=== PATIENT | female | born 1950 | race Caucasian/White ===

== ENCOUNTER 2017-01-26 11:12 | Inpatient (IN) | payer MEDICARE, MEDICAID ==
[~2017-01-26] VITALS: Ht 165.1 cm; Wt 86.2 kg
[~2017-01-26 11:12] MED LIST: ACET-62 PO; ASPI81TA2 PO; CALC-52 PO; CEPH-583 PO; CHOL500050 PO; DEXT1DRO BOTH EYES; DIGO250T85 PO; DIVA250T4 PO; DIVA500T2 PO; ENOX40DI8 SQ; GLUC-120 PO; HYDR-347 PO; LEVE500T9 PO; MAG30ORA2 PO; MAGN400C PO; MAGN400O4 PO; MECO0.5P SL; METO25TA3 PO; OMEP20TA2 PO; PHEN100C4 PO; PHEN32.43; PHEN32.43 PO; POLY17PO6 PO; SENN-9 PO; TRAZ-170 PO; TRIA15CR3 TOP; TROL35.4; VIT1CAPS47 PO; VITA1CAP PO
[2017-01-26] MEDS ORDERED: BISACODYL 10 MG SUPPOSITORY RECTALLY PRN (11:15)
[2017-01-26] MEDS ORDERED: ACETAMINOPHEN 325 MG SUPPOSITORY RECTALLY PRN (11:15)
[2017-01-26] MEDS ORDERED: PRN ORDERS MC (11:15)
[2017-01-26] MEDS ORDERED: ACETAMINOPHEN 325 MG TABLET PO PRN (11:15)
[2017-01-26] MEDS ORDERED: MILK OF MAGNESIA 30 ML SUSP PO PRN ×2 (11:15→14:00)
[2017-01-26] MEDS ORDERED: NITROGLYCERIN 0.4 MG SUBLINGUAL TABLET SL PRN (11:15)
[2017-01-26] MEDS ORDERED: MAG-AL + SIM LIQUID 30 ML UDC PO PRN (11:15)
[2017-01-26] MEDS ORDERED: ONDANSETRON 4mg/2ml INJECTION IV PRN (11:15)
--- NOTE | 2017-01-26 12:30 | NUR ---
ARRIVAL ARRIVES TO ROOM 131 VIA STRETCHER WITH [facility]. PATIENT TRANSFERRED FROM STRETCHER TO BED VIA SLIDE BOARD AND ASSIST X3 FROM STAFF. O2 RA. PATIENT ALERT AND ORIENTED X3. BED IN LOWEST POSITION, CALL LIGHT WITHIN REACH, BED ALARM ACTIVATED, SIDE RAILS UP X2. FAMILY AT BEDS SIDE.
--- OUTSIDE RECORDS SUMMARY | 2017-01-26 12:44 | XMS REPORT ---
Author Author [facility]. Organization [facility] Address [address] [place] [address] Phone [phone] Summary purpose CCDA Sent to [facility] Chief Complaint and Reason for Visit No authorized Reason for Visit (Admitting Diagnosis) is available for this visit. Problem list No authorized problems tracked for continuity of care are available for this visit. Encounters No authorized problems tracked for encounter diagnoses are available for this visit. Medications No medications recorded for this patient visit Allergies, adverse reactions, alerts Allergen Category Ingredient Status Reaction Severity Onset Bactrim Drug Bactrim Active Bactrim Drug sulfamethoxazole Active Bactrim Drug trimethoprim Active Amoxicillin Drug Amoxicillin Active ciprofloxacin Drug ciprofloxacin Active Immunizations No immunizations recorded for this patient visit Relevant diagnostic tests and/or laboratory data RESULTS CBC [id number]:53:00 Result Normal Range Units WBC 8.07 4.8-10.8 x103/mm3 Neutrophil % H 71.0 50-70 % Lymph % L 15.7 20-50 % [place] % H 12.4 1.0-9.0 % Eosinophil % 0.7 0-4 % Basophil % 0.2 0-2 % Neutrophil # 5.72 3.0-7.0 x103/mm3 Lymph # 1.27 1.0-4.0 x103/mm3 [place] # H 1.00 0.0-0.8 x103/mm3 Eosinophil # 0.06 0-0.5 x103/mm3 Basophil # 0.02 0-0.2 x103/mm3 RBC L 3.73 4.20-5.40 x103/mm3 HGB 12.1 12.0-16.0 g/dl HCT L 35.7 37.0-47.0 % MCV 95.7 81-99 FL MCH H 32.4 27.0-31.0 pg MCHC 33.9 32.0-36.0 g/dl RDW 13.0 12-15 % Platelet 284 150-400 x103/mm3 MPV H 10.3 6.0-10.0 FL Chemistry Group [id number]:00 Result Normal Range Units Sodium 136 134-145 mmol/L Potassium 3.8 3.6-5.0 mmol/L Chloride L 95 98-107 mmol/L CO2 H 31 22-30 mmol/L Glucose 104 75-110 mg/dl BUN L 6 9-20 mg/dl Creatinine L .38 0.8-1.7 mg/dl eGFR 168 ml/min. Total Protein L 6.1 6.3-8.2 g/dl Albumin L 2.7 3.5-5.0 g/dl Calcium 8.5 8.4-10.2 mg/dl Alk Phos 114 38-126 U/L AST 16 14-36 U/L ALT 24 11-66 U/L T Bili .5 0.2-1.3 mg/dl A/G Ratio .8 Ratio Reference Lab Group [id number]:00 Result Normal Range Units Valproic Acid 60 50-100 ug/mL Valproic Acid performed at [facility] Reference Lab, [address] [place] [address] Manager [employer] Care Alissa Falk DO History of procedures Procedure Code Code Type Description Date Performed Performing Physician 38678 CPT-4 COMPLETE CBC, AUTOMATED 12-02-2016 JOSE EDUARDO MOELLER 27187 CPT-4 COMPREHEN METABOLIC PANEL 12-02-2016 JOSE EDUARDO MOELLER 17039 CPT-4 ASSAY, DIPROPYLACETIC ACID 12-02-2016 JOSE EDUARDO MOELLER Functional status No functional or cognitive status observations are available for this visit. Vital signs No authorized vital signs are available for this visit. Social history No Social History or smoking status observations were recorded for this visit. ( Unknown if ever smoked.) Treatment Plan No treatment plan text is available for this visit. Hospital discharge instructions No discharge instruction text is available for this visit.
--- OUTSIDE RECORDS SUMMARY | 2017-01-26 12:44 | XMS REPORT ---
Author Author [facility]. Organization [facility] Address [address] [place] [address] Phone [phone] Summary purpose CCDA Sent to [facility] Chief Complaint and Reason for Visit No [...] diagnostic tests and/or laboratory data RESULTS CBC [id number]:15:00 Result Normal Range Units WBC L 2.65 4.8-10.8 x103/mm3 Neutrophil % L 43.1 50-70 % Lymph % 41.5 20-50 % [place] % H 12.8 1.0-9.0 % Eosinophil % 1.5 0-4 % Basophil % 1.1 0-2 % Neutrophil # L 1.14 3.0-7.0 x103/mm3 Lymph # 1.10 1.0-4.0 x103/mm3 [place] # 0.34 0.0-0.8 x103/mm3 Eosinophil # 0.04 0-0.5 x103/mm3 Basophil # 0.03 0-0.2 x103/mm3 RBC L 3.54 4.20-5.40 x103/mm3 HGB L 11.5 12.0-16.0 g/dl HCT 37.0 37.0-47.0 % MCV H 104.5 81-99 FL MCH H 32.5 27.0-31.0 pg MCHC L 31.1 32.0-36.0 g/dl RDW H 17.2 12-15 % Platelet 347 150-400 x103/mm3 MPV 9.4 6.0-10.0 FL Chemistry Group [id number]:00 Result Normal Range Units Sodium 140 134-145 mmol/L Potassium 4.4 3.6-5.0 mmol/L Chloride 99 98-107 mmol/L CO2 H 35 22-30 mmol/L Glucose 91 75-110 mg/dl BUN L 5 9-20 mg/dl Creatinine L .55 0.8-1.7 mg/dl eGFR 110 ml/min. Calcium 8.9 8.4-10.2 mg/dl Digoxin .9 0.8-2.0 ng/ml History of procedures No procedures recorded for this patient visit. Functional status No functional or cognitive status [...]
--- OUTSIDE RECORDS SUMMARY | 2017-01-26 12:45 | XMS REPORT ---
Author Author [facility]. Organization [facility] Address [address] [place] [address] Phone [phone] Summary purpose CCDA Sent to [facility] Chief Complaint and Reason for Visit No [...] diagnostic tests and/or laboratory data RESULTS CBC [id number]:00 Result Normal Range Units WBC L 4.18 4.8-10.8 x103/mm3 Neutrophil % 51.9 50-70 % Lymph % 31.8 20-50 % [place] % H 12.7 1.0-9.0 % Eosinophil % 2.6 0-4 % Basophil % 1.0 0-2 % Neutrophil # L 2.17 3.0-7.0 x103/mm3 Lymph # 1.33 1.0-4.0 x103/mm3 [place] # 0.53 0.0-0.8 x103/mm3 Eosinophil # 0.11 0-0.5 x103/mm3 Basophil # 0.04 0-0.2 x103/mm3 RBC L 2.75 4.20-5.40 x103/mm3 HGB L 8.6 12.0-16.0 g/dl HCT L 26.7 37.0-47.0 % MCV 97.1 81-99 FL MCH H 31.3 27.0-31.0 pg MCHC 32.2 32.0-36.0 g/dl RDW H 15.7 12-15 % Platelet H 459 150-400 x103/mm3 MPV 9.1 6.0-10.0 FL Chemistry Group :06:00 Result Normal Range Units Sodium 138 134-145 mmol/L Potassium 4.2 3.6-5.0 mmol/L Chloride 102 98-107 mmol/L CO2 H 34 22-30 mmol/L Glucose 90 75-110 mg/dl BUN L 8 9-20 mg/dl Creatinine L .46 0.8-1.7 mg/dl eGFR 135 ml/min. Total Protein L 5.7 6.3-8.2 g/dl Albumin L 2.7 3.5-5.0 g/dl Calcium 8.4 8.4-10.2 mg/dl Alk Phos 72 38-126 U/L AST 24 14-36 U/L ALT 32 11-66 U/L T Bili .6 0.2-1.3 mg/dl A/G Ratio .9 Ratio Digoxin L .7 0.8-2.0 ng/ml Special Chemistry Group :06:00 Result Normal Range Units TSH 2.76 0.50-6.00 uIU/mL Reference Lab Group :06:00 Result Normal Range Units Valproic Acid L 35 50-100 ug/mL Valproic Acid performed at [facility] Reference Lab, [address] [place] [address] Physical Sciences Instructor Alissa Falk DO Phenytoin(Dilantin) L 2 10-20 ug/mL Phenytoin performed at [facility] Reference Lab, [address] [place] [address] Physical Sciences Instructor Alissa Falk DO Phenobarbital 29 15-40 ug/mL Phenobarbital performed at [facility] Reference Lab, [address] [place] [address] Physical Sciences Instructor Alissa Falk DO History of procedures No procedures recorded for [...]
--- OUTSIDE RECORDS SUMMARY | 2017-01-26 12:45 | XMS REPORT | Continuity of Care Document ---
Author Author [facility] Organization [facility] Address Unknown Phone Unavailable Support Name Relationship Address Phone LOLA KO MD Caregiver [address] [place] [address] Unavailable JOSE EDUARDO MOELLER MD Caregiver [address] [place] [address] Unavailable NICANOR WEBBER MD Caregiver [address] [place] [address] [place] [address] Unavailable PEREZ AVITIA Next Of Kin [address] [place] [address] Insurance Providers Guarantor Eliza Avitia Address [address] [place] [address] Email DENIED/NO TO PT [facility] Policy Number [id number] Subscriber's Name AdoreEliza Rodriguez Relationship 18 Self Effective Date 16 Expiration Date 16 Payer Medicare Policy Number [id number] Subscriber's Name Eliza Avitia Relationship 18 Self Effective Date 13 Advance Directives Directive Response Recorded Date/Time Dr Ordered Resuscitation Status Do Not Resuscitate 10/14/16 11:11am Resuscitation Documents on File Yes 10/13/16 10:11pm DPOA for Healthcare Only Yes 10/14/16 8:21am Living Will Yes 10/13/16 10:11pm Problems Active Problems Medical Problem Onset Date Status Atrial fibrillation with rapid ventricular response Unknown Chronic Chronic pain Unknown DJD (degenerative joint disease) Unknown Chronic Epilepsy Unknown Chronic GERD (gastroesophageal reflux disease) Unknown Chronic Intertrochanteric fracture of right hip Unknown Acute Macular degeneration Unknown UTI (urinary tract infection) Unknown Chronic Vitamin D deficiency Unknown Chronic Medications Current Home Medications Medication Dose Units Route Directions Days Qty Instructions Start Date Acetaminophen 500 Mg Tablet 1-2 Tab Oral Every 4 Hours Prn as needed for Prn Orders 60 Tablet 10/14/16 Aspirin 81 Mg Tab.chew 1 Tab Oral Daily 30 Tablet 10/14/16 Calcium Carbonate (Calcium) 500 Mg Tablet 500 Mg Oral Twice A Day 30 Days 60 Tablet 10/17/16 Cephalexin (Keflex) 500 Mg Capsule 1 Cap Oral Three Times A Day 5 Days 15 Capsule 10/17/16 Cholecalciferol (Vitamin D3) (Vitamin D3) 50,000 Unit Capsule 1 Tab-Cap Oral 1 Week 12 10/17/16 Dextran 70/Hypromellose/Pf (Tears Naturale Free Drops) 1 Each Droperette 1-2 Drop Both Eyes Three Times A Day 10/14/16 Digoxin 250 Mcg Tablet 1 Tab Oral Daily 10/14/16 Divalproex Sodium (Depakote) 250 Mg Tablet. 1 Tab Oral Every Evening 10/14/16 Divalproex Sodium (Depakote) 500 Mg Tablet. 1 Tab Oral Morning And Bedtime 10/14/16 Enoxaparin Sodium 40 Mg/0.4 Ml Syringe 40 Mg Sub-Q Daily 30 Days 30 10/17/16 Gluc Gordon Dipo Ch/Billy Gordon/C/Aj (Glucosamine Chondroitin Caplet) 1 Each Tablet 1 Cap Oral Twice A Day 10/14/16 Hydrocodone/Acetaminophen ([place] 7.5-325 Tablet) 7.5-325 Tablet 1 Tab Oral Bedtime 10/14/16 Hydrocodone/Acetaminophen ([place] 7.5-325 Tablet) 7.5-325 Tablet 1-2 Tab Oral Three Times A Day as needed for Prn Orders 10/14/16 Levetiracetam (Keppra) 500 Mg Tablet 1 Tab Oral Every 12 Hours 180 Tablet 10/14/16 Mag Hydrox/Al Hydrox/Simeth (Mag-Al Plus Xs Suspension) 30 Ml Suspension 15 Ml Oral Every 2-4 Hours as needed for Prn Orders 10/14/16 Magnesium Hydroxide (Milk Of Magnesia) 400 Mg/5 Ml Oral.susp 30 Ml Oral Daily as needed for Prn Orders 10/14/16 Magnesium Oxide (Magnesium) 400 Mg Capsule 325 Mg Oral Bedtime 180 Capsule 10/14/16 Mecobalamin (Methylcobalamin) 0.5 Gm Powder 5,000 Tab Sublingual Give With Breakfast 10/14/16 Metoprolol Succinate (Toprol Xl) 25 Mg Tab.er.24h 25 Mg Oral Daily 30 Days 30 Tablet 10/17/16 Omeprazole Magnesium (Prilosec Otc) 20 Mg Tablet.dr Jerez Tab Oral Daily 10/14/16 Phenobarbital 32.4 Mg Tablet 1 Tab Daily 10/14/16 Phenobarbital 32.4 Mg Tablet 2 Tab Oral Bedtime 10/14/16 Phenytoin Sodium Extended (Dilantin) 100 Mg Capsule 2 Cap Oral Every Evening Take 2 (100 mg) capsules, by mouth, daily with breakfast. Polyethylene Glycol 3350 (Miralax) 17 Gm Powd.pack 1 Packet Oral Daily as needed for Prn Orders 30 Packet 10/14/16 Sennosides/Docusate Sodium (Senokot-S Tablet) 1 Each Tablet 1 Tab Oral Twice A Day 30 Tablet 10/14/16 Trazodone Hcl 50 Mg Tablet 50 Mg Oral Bedtime Take 1 tablet, by mouth, one time a day (at BEDTIME). 10/14/16 Triamcinolone (Triamcinolone Acetonide) 15 Applic/15 G Cr 1 Applic Topically Daily as needed for Prn Orders 30 Gram 10/14/16 Trolamine Salicylate/Aloe Vera (Aspercreme 10% Cream) 35.4 Gm Cream..g. Twice A Day 10/14/16 Vit C/E/Zn/Coppr/Lutein/Zeaxan (Preservision Areds 2 Softgel) 1 Each Capsule 1 Cap Oral Twice A Day 10/14/16 Vitamin B Complex 1 Each Capsule 50 Mg Oral Give With Breakfast 10/14/16 Past Home Medications Medication Directions Ordered Status Calcium Carbonate (Tums) 300 Mg Tab.chew, 500 Mg Po Chew Give At Noon Discontinued Mag Hydrox/Al Hydrox/Simeth (Mag-Al Plus Xs Suspension) 30 Ml Suspension, 15 Ml Oral Every 2-4 Hours as needed for Prn Orders 10/14/16 Discontinued Mag Hydrox/Al Hydrox/Simeth (Mag-Al Plus Suspension) 30 Ml Oral.susp, 15 Ml Oral Every 2-4 Hours as needed for Prn Orders 10/14/16 Discontinued Meloxicam 15 Mg Tablet, 15 Mg Oral Daily 10/14/16 Discontinued Metoprolol Succinate 25 Mg Tab.er.24h, 12.5 Mg Oral Daily 10/14/16 Discontinued Nitrofurantoin Monohyd/M-Cryst (Macrobid 100 Mg Capsule) 100 Mg Capsule, 1 Cap Oral Twice Daily With Meals 10/14/16 Discontinued [place]-3/Dha/Epa/Fish Oil (Fish Oil 1,000 Mg Softgel) 1 Each Capsule, 1000 Mg Oral Daily 10/14/16 Discontinued Social History Social History Problem Response Recorded Date/Time Onset Date Status Reason for Hospitalization right hip fracture 10/17/2016 4:23pm Not Applicable Not Applicable Has the pt used tobacco in the last 12 months No 10/13/2016 10:13pm Not Applicable Not Applicable Query Response Start Date Stop Date Smoking Status Never smoker Hospital Discharge Instructions Instructions: Care Instructions: Reason for Hospitalization: right hip fracture I was in the hospital because (patient own words): "I broke my pelvis" Discharge Diet: Resume previous Discharge Activity: As tolerated. Left hip precautions. Up with assist. Follow Up Appointments: Elie HERNANDEZ in [facility] on 11/03/16 @ 1:30 Pending Lab / Results: Follow up w/ your PCP Wound/Incision Care: You may remove the dressings after 10/28/15. Do not apply cremes or ointments to the wound. Keep the wounds dry until 10/28/16. Pain Scale Utilized to Educate Patient: 0-10 Pain Scale Pain Management/Treatment: See MAR. Expected Signs/Symptoms: Pain at fracture site. Mild swelling at incision site, should improve. Notify Physician If: Fever over 100.0 Increasing redness, warmth, or drainage at fracture site. Persistent diarrhea. During Business Hours:: Please call the attending physician. After Business Hours:: Please call [phone] and have the checkering machine operator page the physician or call credit administration officer physician at facility. Condition at time of discharge: Good Plan of Care Discharge Date 10/17/16 5:40pm Disposition 04 TO [facility] HOME[facility]FACILITY Instructions/Education Provided [facility] Postop Instructions [facility] Fracture Instruction Prescriptions See Medication Section Care Plan and Goals See Discharge Instructions Section Functional Status Query Response Date Recorded Mobility Status Transfer w/assist October 17, 2016 4:23pm Assistive Devices Wheelchair October 17, 2016 4:23pm Activity Limitations Weakness October 17, 2016 4:23pm Feeding Ability Independent October 17, 2016 4:23pm Toileting Ability Assist October 13, 2016 10:16pm Grooming Ability Assist October 17, 2016 4:23pm Dressing Ability Assist October 17, 2016 4:23pm Driving Ability Dependent October 17, 2016 4:23pm Housework Ability Dependent October 17, 2016 4:23pm Meal Preparation Ability Dependent October 17, 2016 4:23pm Stair Climbing Ability Dependent October 17, 2016 4:23pm Ability to complete ADL's impeded by Impaired Mobility October 17, 2016 4:23pm Cognitive/Perceptual Impairments None October 17, 2016 4:23pm Visual Assistive Devices Glasses October 16, 2016 10:14pm Allergies, Adverse Reactions, Alerts Allergen Type Severity Reaction Status Last Updated Sulfamethoxazole Allergy Unknown Active 10/13/16 Trimethoprim Allergy Unknown Active 10/13/16 Ciprofloxacin Allergy Unknown Active 10/13/16 Amoxicillin Allergy Unknown Active 10/13/16 Immunizations Query Response on File Recorded Date/Time Hx Influenza Vaccination Yes 10/13/16 10:13pm Hx Pneumococcal Vaccination Yes 10/13/16 10:13pm Hx Influenza Vaccination Yes 10/13/16 10:13pm Influenza Vaccine Hx JULY 2016 10/14/16 2:52pm Vital Signs Acute Vital Signs Vital Response Date/Time Temperature (Fahrenheit) 97.9 deg F (96.8 - 99.1) 10/17/2016 4:19pm Temperature (Calculated Celsius) 36.47479 degrees C (36.0 - 37.3) 10/17/2016 4:19pm Temperature Source Oral 10/17/2016 4:19pm Pulse Rate (adult) 99 bpm (60 - 100) 10/17/2016 4:19pm Respiratory Rate 16 breaths/min (10 - 20) 10/17/2016 4:19pm O2 Sat by Pulse Oximetry 97 % (90 - 100) 10/17/2016 4:19pm Oxygen Delivery Method Room Air 10/17/2016 4:19pm Oxygen Delivery Method Nasal Cannula 10/14/2016 1:55pm Oxygen Flow Rate 1.00 L/min 10/14/2016 8:13pm Blood Pressure 146/90 mm Hg 10/17/2016 4:19pm Blood Pressure Source Automatic Cuff 10/17/2016 4:19pm Height (Feet) 5 feet 10/17/2016 12:50pm Height (Inches) 6.00 inches 10/17/2016 12:50pm Weight (Kilograms) 87.400 kg 10/17/2016 7:51am Body Mass Index (BMI) 29.6 10/13/2016 10:09pm Results Laboratory Results Test Name Result Units Flags Reference Collection Date/Time Result Date/ Time Comments White Blood Count 4.6 T/MM3 4.5-11.0 10/17/2016 5:5210/17/2016 6: 17am Red Blood Count 2.67 M/MM3 L 4.00-5.20 10/17/2016 5:5210/17/2016 6: 17am Hemoglobin 8.1 GM/DL L 12-16 10/17/2016 5:5210/17/2016 6:17am Hematocrit 24.8 % L 36-46 10/17/2016 5:5210/17/2016 6:17am Mean Corpuscular Volume 92.9 UM3 80-100 10/17/2016 5:5210/17/2016 6: 17am Mean Corpuscular Hemoglobin 30.3 UUG 26-34 10/17/2016 5:522016 6:17am Mean Corpuscular Hemoglobin Concent 32.7 GM/DL 31-37 10/17/2016 5:5210/17/2016 6:17am RDW Standard Deviation 42.5 FL 36.9-50.2 10/17/2016 5:5210/17/2016 6 :17am Platelet Count 155 T/MM3 130-400 10/17/2016 5:5210/17/2016 6:17am Mean Platelet Volume 10.4 UM3 9.4-12.4 10/17/2016 5:5210/17/2016 6: 17am Neutrophils (%) (Auto) 47.3 % 33-66 10/17/2016 5:5210/17/2016 6: 17am Lymphocytes (%) (Auto) 38.7 % 23-45 10/17/2016 5:5210/17/2016 6: 17am Monocytes (%) (Auto) 11.2 % H 0-9.0 10/17/2016 5:5210/17/2016 6:17am Eosinophils (%) (Auto) 2.2 % 0-4 10/17/2016 5:5210/17/2016 6:17am Basophils (%) (Auto) 0.4 % 0-2 10/17/2016 5:5210/17/2016 6:17am Immature Granulocyte % (Auto) 0.2 % 0.0-0.5 10/17/2016 5:52am 2016 6:17am Absolute Neutrophils (auto) 2.2 T/MM3 1.8-7.7 10/17/2016 5:52am 2016 6:17am Absolute Lymphocytes (auto) 1.8 T/MM3 1-4.8 10/17/2016 5:52am 2016 6:17am Absolute Monocytes (auto) 0.5 T/MM3 0-0.8 10/17/2016 5:52am 10/17/2016 6:17am Absolute Eosinophils (auto) 0.1 T/MM3 0-0.5 10/17/2016 5:52am 2016 6:17am Absolute Basophils (auto) 0.0 T/MM3 0-0.2 10/17/2016 5:52am 10/17/2016 6:17am Absolute Immature Granulocyte (auto 0.01 T/MM3 0.00-0.03 10/17/2016 5: 52am 10/17/2016 6:17am Prothromb Time International Ratio 1.16 H 0.76-1.04 10/13/2016 11:00pm 10/14/2016 12:45am THERAPUTIC RANGE=2.00-3.00 FOR ANTI-THROMBOSIS THERAPUTIC RANGE=2.50-3.50 FOR IMPLANTED VALVE Activated Partial Thromboplast Time 32.2 SEC 24-36 10/13/2016 11:00pm 10/14/2016 12:45am Icterus Index < 2 0-7 10/17/2016 5:52am 10/17/2016 6:29am Chemistry Specimen Hemolysis < 15 0-25 10/17/2016 5:52am 10/17/2016 6 :29am 0-25: Specimen Exhibited No Hemolysis. Turbidity < 20 0-20 10/17/2016 5:52am 10/17/2016 6:29am Sodium Level 138 MEQ/L 134-144 10/17/2016 5:52am 10/17/2016 6:29am Potassium Level 3.5 MEQ/L L 3.6-5 10/17/2016 5:52am 10/17/2016 6:29am Chloride Level 101 MEQ/L 98-107 10/17/2016 5:52am 10/17/2016 6:29am Carbon Dioxide Level 28 MEQ/L 22-30 10/17/2016 5:52am 10/17/2016 6: 29am Anion Gap 9 MEQ/L 5-15 10/17/2016 5:52am 10/17/2016 6:29am Blood Urea Nitrogen 4.0 MG/DL L 7-17 10/17/2016 5:52am 10/17/2016 6: 29am Creatinine 0.5 MG/DL L 0.7-1.2 10/17/2016 5:52am 10/17/2016 6:29am BUN/Creatinine Ratio 8 RATIO 6-26 10/17/2016 5:52am 10/17/2016 6:29am Glomerular Filtration Rate Calc 123 10/17/2016 5:52am 10/17/2016 6: 29am Glucose Level 108 MG/DL 65-110 10/17/2016 5:52am 10/17/2016 6:29am Calculated Osmolality 264 MOSM/KG 261-280 10/17/2016 5:52am 10/17/2016 6:29am Calcium Level 8.4 MG/DL 8.4-10.2 10/17/2016 5:52am 10/17/2016 6:29am Phosphorus Level 4.3 MG/DL 2.5-4.5 10/13/2016 11:00pm 10/13/2016 11: 56pm Total Bilirubin 0.40 MG/DL 0.20-1.30 10/13/2016 11:00pm 10/13/2016 11: 22pm Alkaline Phosphatase 94 U/L 38-126 10/13/2016 11:00pm 10/13/2016 11: 22pm Total Protein 7.7 G/DL 6.3-8.2 10/13/2016 11:00pm 10/13/2016 11:22pm Albumin 4.1 G/DL 3.5-5.0 10/13/2016 11:00pm 10/13/2016 11:22pm Globulin 3.6 G/DL 2.4-3.6 10/13/2016 11:00pm 10/13/2016 11:22pm Albumin/Globulin Ratio 1.1 RATIO 1.1-2.2 10/13/2016 11:00pm 10/13/2016 11:22pm Aspartate Amino Transf (AST/SGOT) 31 U/L 14-36 10/13/2016 11:00pm 10/13 11:22pm Alanine Aminotransferase (ALT/SGPT) 33 U/L 9-52 10/13/2016 11:00pm 12/2016 11:22pm Magnesium Level 2.3 MG/DL 1.6-2.3 10/13/2016 11:00pm 10/13/2016 11: 22pm Thyroid Stimulating Hormone (TSH) 4.21 MIU/L 0.47-4.68 10/13/2016 11: 00pm 10/13/2016 11:52pm Stool C. difficile Toxin B Gene PCR NEGATIVE NEGATIVE 10/15/2016 6: 33pm 10/15/2016 8:55pm If Toxin A is clinically indicated, treat accordingly. Adenovirus (PCR) NEGATIVE NEGATIVE 10/14/2016 11:20pm 10/15/2016 1: 55am Coronavirus Type 229E (PCR) NEGATIVE NEGATIVE 10/14/2016 11:20pm 02/2017 1:55am Coronavirus Type HKU1 (PCR) NEGATIVE NEGATIVE 10/14/2016 11:20pm 02/2017 1:55am Coronavirus Type NL63 (PCR) NEGATIVE NEGATIVE 10/14/2016 11:20pm 02/2017 1:55am Coronavirus Type OC43 (PCR) NEGATIVE NEGATIVE 10/14/2016 11:20pm 02/2017 1:55am Human Metapneumovirus (PCR) NEGATIVE NEGATIVE 10/14/2016 11:20pm 02/2017 1:55am Enterovirus/Rhinovirus (PCR) DETECTED A NEGATIVE 10/14/2016 11:20pm 1:55am Influenza Virus Type A (PCR) NEGATIVE NEGATIVE 10/14/2016 11:20pm 02/2017 1:55am Influenza Virus Type B (PCR) NEGATIVE NEGATIVE 10/14/2016 11:20pm 02/2017 1:55am Parainfluenza Type 1 (PCR) NEGATIVE NEGATIVE 10/14/2016 11:20pm 10/15 1:55am Parainfluenza Type 2 (PCR) NEGATIVE NEGATIVE 10/14/2016 11:20pm 10/15 1:55am Parainfluenza Type 3 (PCR) NEGATIVE NEGATIVE 10/14/2016 11:20pm 10/15 1:55am Parainfluenza Type 4 (PCR) NEGATIVE NEGATIVE 10/14/2016 11:20pm 10/15 1:55am Respiratory Syncytial Virus (PCR) NEGATIVE NEGATIVE 10/14/2016 11: 20pm 10/15/2016 1:55am Bordetella parapertussis DNA (PCR) NEGATIVE NEGATIVE 10/14/2016 11: 20pm 10/15/2016 1:55am Chlamydia pneumoniae DNA (PCR) NEGATIVE NEGATIVE 10/14/2016 11:20pm 10/15/2016 1:55am Mycoplasma pneumoniae (PCR) NEGATIVE NEGATIVE 10/14/2016 11:20pm 02/2017 1:55am Urine Collection Type BLACKWELL INDWELLING 10/14/2016 1:06am 2016 2:15am Urine Color YELLOW YELLOW 10/14/2016 1:06am 10/14/2016 2:15am Urine Turbidity SL CLOUDY CLEAR 10/14/2016 1:06am 10/14/2016 2:15am Urine Specific [place] 1.015 1.015-1.025 10/14/2016 1:06am 2016 2:15am Urine pH 6.5 5.0-8.0 10/14/2016 1:06am 10/14/2016 2:15am Urine Leukocyte Esterase NEGATIVE NEGATIVE 10/14/2016 1:06am 2016 2:15am Urine Nitrite POSITIVE A NEGATIVE 10/14/2016 1:06am 10/14/2016 2:15am Urine Protein NEGATIVE NEGATIVE 10/14/2016 1:06am 10/14/2016 2:15am Urine Glucose (UA) NEGATIVE NEGATIVE 10/14/2016 1:06am 10/14/2016 2: 15am Urine Ketones NEGATIVE NEGATIVE 10/14/2016 1:06am 10/14/2016 2:15am Urine Urobilinogen 0.2 EU/DL NORMAL 10/14/2016 1:06am 10/14/2016 2: 15am Urine Bilirubin NEGATIVE NEGATIVE 10/14/2016 1:06am 10/14/2016 2: 15am Urine Blood TRACE-INTACT A NEGATIVE 10/14/2016 1:06am 10/14/2016 2: 15am Urine WBC 0-1 /HPF 0-5 10/14/2016 1:06am 10/14/2016 2:23am Urine RBC NONE SEEN /HPF 0-3 10/14/2016 1:06am 10/14/2016 2:23am Urine Bacteria 4+ H NEGATIVE 10/14/2016 1:06am 10/14/2016 2:23am Urine Culture Indicated CULT REFLEXED &SETUP 10/14/2016 1:06am 01/2017 2:23am 25-Hydroxy Vitamin D3 <10 ng/mL 10/13/2016 11:00pm 10/15/2016 4:46pm 25-Hydroxy Vitamin D2 <7 ng/mL 10/13/2016 11:00pm 10/15/2016 4:46pm 25-Hydroxy Vitamin D Total <17 ng/mL L 30-74 10/13/2016 11:00pm 2016 4:46pm The desirable level of 25-Hydroxy Vitamin D Total(D2 + D3) is 30- 74 ng/mL. A level consistently >200 is potentially toxic. Vitamin D, 25-Hydroxy performed at [facility], [address] [place] [address] Mental Health Program Director Alissa Falk DO Microbiology Results Procedure Source Organism/Result Collection Date/Time Result Date/Time Result Status Urine Culture Urine, Blackwell Indwelling ESCHERICHIA COLI 10/14/2016 2:23am 10/17/2016 8:16am Final ESCHERICHIA COLI#2 10/14/2016 2:23am 10/17/2016 8:16am Final Name: ELIZA AVITIA Unit #: [id number] : [id number] Sex: F Admit Date: 10/13/16 Loc / Svc: SRG Discharge Date: DIAGNOSTIC IMAGING REPORT Report #: [id number] [place], [place] Indication: ITS.REASON: RT HIP GAMMA NAIL PROCEDURE: RF HIP RIGHT 2 VIEW: Encounter: Initial Comparison: None Findings: Six fluoroscopic spot images are submitted for interpretation. Images show open reduction and internal fixation of the right femoral fracture with placement of an intramedullary nail, compression screw and distal interlocking screw. Improved alignment of the fracture fragments. Impression: Fluoroscopy as above. Fluoroscopy time is 76 seconds. Fluoroscopy dose is 2040 mRad. . Procedures No known history of procedures. Encounters Encounter Location Arrival/Admit Date Discharge/Depart Date Attending Provider Discharged Inpatient [facility] 10/13/16 9:43pm 10/17/16 5:40pm LOLA KO MD
--- OUTSIDE RECORDS SUMMARY | 2017-01-26 12:45 | XMS REPORT ---
Author Author [facility]. Organization [facility] Address [address] [place] [address] Phone [phone] Summary purpose CCDA Sent to [facility] Chief Complaint and Reason for Visit [...] Relevant diagnostic tests and/or laboratory data RESULTS Urinalysis [id number]:15:00 Result Normal Range Units Site CC Color Yellow Urine Appearance Cloudy Specific Joes 1.025 1.005-1.030 pH 6.0 5.0-9.0 Protein Negative Negative Glucose Negative Negative Ketones Negative Negative Bilirubin Negative Negative Blood AB Trace-lyse Negative Nitrite AB Positive Negative C&S SENT PER ORDER Urobilinogen 0.2 0.20 mg/dl Leukocyte AB Trace Negative C&S SENT PER ORDER Squamous Epi's N3-5 Urine Bacteria 2+ Urine RBC N6-10 Urine WBC N31-50 Reference Lab Group [id number]:00 Result Normal Range Units Culture Urine See Comment .Site: Received : 12/19/16 15:44 .Order#: [id number] Urine Culture FINAL 12/21/16 07:22 S .Escherichia coli .>100,000 cfu/ml . E. coli Antibiotic ROLANDO INT Ampicillin >=32 R Ampicillin/splywyixd33 I Cefazolin<=4 S Ceftriaxone<=1 S Ciprofloxacin0.5 S Gentamicin2 S Nitrofurantoin <=16 S Trimethoprim/Sulfa <=20 S .S=SUSCEPTIBLE I=INTERMEDIATE R=RESISTANT S-DD=SUSCEPTIBLE, DOSE DEPENDENT .S: Performed at:[facility], [place], [place] CLIA#[id number] VELOZ FOR RESULTS: * - NEW RESULT - RESULT WAS MODIFIED AFTER FINAL STATUS SET Urine Culture performed at [facility], [address] [place] [address] Proof Clerk Alissa Falk, DO Urinalysis with Microscopic [id number] Result Normal Range Units Site CC Color Yellow Urine Appearance Cloudy Specific Joes 1.025 1.005-1.030 pH 6.0 5.0-9.0 Protein Negative Negative Glucose Negative Negative Ketones Negative Negative Bilirubin Negative Negative Blood AB Trace-lyse Negative Nitrite AB Positive Negative C&S SENT PER ORDER Urobilinogen 0.2 0.20 mg/dl Leukocyte AB Trace Negative C&S SENT PER ORDER Squamous Epi's N3-5 Urine Bacteria 2+ Urine RBC N6-10 Urine WBC N31-50 History of procedures No procedures recorded for [...]
--- OUTSIDE RECORDS SUMMARY | 2017-01-26 12:45 | XMS REPORT ---
Author Author [facility]. Organization [facility] Address [address] [place] [address] Phone [phone] Summary purpose CCDA Sent to [facility] Chief Complaint and Reason for Visit Admit Diagnosis 1 FALL - PAINFUL RIGHT HIP Problem list No authorized problems tracked for [...] visit Relevant diagnostic tests and/or laboratory data No authorized results are available for this patient visit History of procedures Procedure Code Code Type Description Date Performed Performing Physician 52188 CPT-4 EMERGENCY DEPT VISIT 10-13-2016 CELESTE SALTER 36885 CPT-4 X-RAY EXAM HIP UNI 1 VIEW 10-13-2016 CELESTE MICHAEL SALTER Functional status Cognitive Status Finding Observation Time Level of Consciousne Alert [id number]:19 Oriented to Person Yes [id number]:[address] Yes [id number]:19 Oriented to Time Yes [id number]:19 Vital signs Type Value Date Respirations 20 57-59-431748:40 Pulse 91 :40 O2 Saturation 92% 82-08-772300:40 Systolic Blood Press 130mm/HG 13-28-997622:40 Diastolic Blood Pres 87mm/HG 26-28-466161:40 Temperature (Fahr) 98.4Degrees 91-88-898438:40 Social history Type Value Smoking Status NEVER SMOKER Treatment Plan No treatment plan text is available for this visit. Hospital discharge instructions No discharge instruction text is available for this visit.
--- OUTSIDE RECORDS SUMMARY | 2017-01-26 12:45 | XMS REPORT ---
Author Author [facility]. Organization [facility] Address [address] [place] [address] Phone [phone] Summary purpose CCDA Sent to [facility] Chief Complaint and Reason for Visit No [...] diagnostic tests and/or laboratory data RESULTS Urinalysis [id number] Result Normal Range Units Site CC Result Amended on 2016-11-11 at 11:21:53. Previous status was FR. Color Yellow Result Amended on 2016-11-11 at 11:21:53. Previous status was FR. Urine Appearance Clear Result Amended on 2016-11-11 at 11:21:53. Previous status was FR. Specific Preston 1.015 1.005-1.030 Result Amended on 2016-11-11 at 11:21:53. Previous status was FR. pH 7.0 5.0-9.0 Result Amended on 2016-11-11 at 11:21:53. Previous status was FR. Protein Negative Negative Result Amended on 2016-11-11 at 11:21:53. Previous status was FR. Glucose Negative Negative Result Amended on 2016-11-11 at 11:21:53. Previous status was FR. Ketones Negative Negative Result Amended on 2016-11-11 at 11:21:53. Previous status was FR. Bilirubin Negative Negative Result Amended on 2016-11-11 at 11:21:53. Previous status was FR. Blood AB Trace-inta Negative Result Amended on 2016-11-11 at 11:21:53. Previous status was FR. Nitrite AB Positive Negative Result Amended on 2016-11-11 at 11:21:53. Previous status was FR. [facility] Urobilinogen 0.2 0.20 mg/dl Result Amended on 2016-11-11 at 11:21:53. Previous status was FR. Leukocyte AB Trace Negative Result Amended on 2016-11-11 at 11:21:53. Previous status was FR. [facility] Reference Lab Group [id number] Result Normal Range Units Culture Urine See Comment Result Amended on 2016-11-13 at 07:40:33. Previous status was FR. Comment deleted 11/13/2016 07:38 by [facility] : .Site: Received : 11/11/16 19:29 .Order#: [id number] Urine Culture PRELIM 11/12/16 10:22 S .Gram negative bacillus .>100,000 cfu/ml .S: Performed at:[facility], [facility]#[id number] VELOZ FOR RESULTS: * - NEW RESULT - RESULT WAS MODIFIED AFTER FINAL STATUS SET Urine Culture performed at [facility] Reference Lab, [address] [place] [id number] [employer] Consultant Alissa Falk DO .Site: Received : 11/11/16 19:29 .Order#: [id number] Urine Culture FINAL 11/13/16 07:37 S .Escherichia coli .>100,000 cfu/ml . E. coli Antibiotic ROLANDO INT Ampicillin >=32 R Ampicillin/sulbactam >=32 R Cefazolin<=4 S Ceftriaxone<=1 S Ciprofloxacin0.5 S Gentamicin2 S Nitrofurantoin <=16 S Trimethoprim/Sulfa <=20 S .S=SUSCEPTIBLE I=INTERMEDIATE R=RESISTANT S-DD=SUSCEPTIBLE, DOSE DEPENDENT .S: Performed at:[facility], [facility]#[id number] VELOZ FOR RESULTS: * - NEW RESULT - RESULT WAS MODIFIED AFTER FINAL STATUS SET Urine Culture performed at [facility] Reference Lab, [address] [place] [id number] Trousseau Consultant Alissa Falk DO Test Culture Urine with result Magdy Comment was originally reported as See Comment and was changed on 11/13/2016 07:38 by [facility] Urinalysis with Microscopic [id number] Result Normal Range Units Site CC Result Amended on 2016-11-11 at 11:21:53. Previous status was FR. Color Yellow Result Amended on 2016-11-11 at 11:21:53. Previous status was FR. Urine Appearance Clear Result Amended on 2016-11-11 at 11:21:53. Previous status was FR. Specific Preston 1.015 1.005-1.030 Result Amended on 2016-11-11 at 11:21:53. Previous status was FR. pH 7.0 5.0-9.0 Result Amended on 2016-11-11 at 11:21:53. Previous status was FR. Protein Negative Negative Result Amended on 2016-11-11 at 11:21:53. Previous status was FR. Glucose Negative Negative Result Amended on 2016-11-11 at 11:21:53. Previous status was FR. Ketones Negative Negative Result Amended on 2016-11-11 at 11:21:53. Previous status was FR. Bilirubin Negative Negative Result Amended on 2016-11-11 at 11:21:53. Previous status was FR. Blood AB Trace-inta Negative Result Amended on 2016-11-11 at 11:21:53. Previous status was FR. Nitrite AB Positive Negative Result Amended on 2016-11-11 at 11:21:53. Previous status was FR. [facility] Urobilinogen 0.2 0.20 mg/dl Result Amended on 2016-11-11 at 11:21:53. Previous status was FR. Leukocyte AB Trace Negative Result Amended on 2016-11-11 at 11:21:53. Previous status was FR. [facility] History of procedures No procedures recorded for [...]
[2017-01-26 12:49] VITALS: Ht 165.1 cm; Wt 86.2 kg
[2017-01-26 13:23] LABS: BASOPHILS % (AUTO) 0.2 % (0-2); EOSINOPHILS % (AUTO) 0.1 % (0-4); HCT - HEMATOCRIT 41.5 % (36-46); HGB - HEMOGLOBIN 13.9 GM/DL (12-16); IMMATURE GRANULOCYTE # (AUTO) 0.01 T/MM3 (0.00-0.03); IMMATURE GRANULOCYTE % (AUTO) 0.1 % (0.0-0.5); LYMPHOCYTES # (AUTO) 1.3 T/MM3 (1-4.8); LYMPHOCYTES % (AUTO) 14.6 % (23-45); MEAN CORPUSCULAR HGB 30.9 UUG (26-34); MEAN CORPUSCULAR HGB CONC(MCHC 33.5 GM/DL (31-37); MEAN CORPUSCULAR VOLUME 92.2 UM3 (80-100); MEAN PLATELET VOLUME 9.7 UM3 (9.4-12.4); MONOCYTES # (AUTO) 0.6 T/MM3 (0-0.8); MONOCYTES % (AUTO) 6.4 % (0-9.0); NEUTROPHILS #(AUTO)-ABSOLUTE 6.9 T/MM3 (1.8-7.7); NEUTROPHILS % (AUTO) 78.6 % (33-66); WBC - WHITE BLOOD COUNT 8.7 T/MM3 (4.5-11.0)
[2017-01-26] MEDS ORDERED: DIVA500T2 PO (13:24)
[2017-01-26] MEDS ORDERED: METO25TA3 PO (13:24)
[2017-01-26] MEDS ORDERED: CALC-52 PO (13:24)
[2017-01-26] MEDS ORDERED: PARO40TA72 PO (13:24)
[2017-01-26] MEDS ORDERED: FERR324T PO (13:24)
[2017-01-26 13:25] VITALS: BP 149/74; PULSE 81; RESP 18; TEMP 96.4; O2SAT 98
[2017-01-26 13:25] LABS: BLOOD, URINE TRACE-INTACT (NEGATIVE); COLOR,URINE YELLOW (YELLOW); LEUKOCYTE ESTERASE ,URINE NEGATIVE (NEGATIVE); NITRITE,URINE POSITIVE (NEGATIVE); UROBILINOGEN,URINE 0.2 EU/DL (NORMAL)
[2017-01-26] MEDS: HYDROMORPHONE 2mg/ml INJECTION IV PRN (13:29)
[2017-01-26 13:31] LABS: SQUAMOUS EPITHELIAL CELL,UR 20-50
[2017-01-26 13:32] LABS: BACTERIA,URINE 4+ (NEGATIVE); RBC,URINE NONE SEEN /HPF (0-3)
[2017-01-26] MEDS ORDERED: HYDR-347 PO (13:37)
--- NOTE | 2017-01-26 13:37 | NUR ---
Home med list Home medications reconciled against MAR provided by senior care.
[2017-01-26 13:41] LABS: ALBUMIN/GLOBULIN RATIO 1.1 RATIO (1.1-2.2); ALKALINE PHOSPHATASE 130 U/L (38-126); ALT (SGPT) 25 U/L (9-52); ANION GAP 11 MEQ/L (5-15); AST (SGOT) 25 U/L (14-36); BUN/CREATININE RATIO 20 RATIO (6-26); CALCIUM 9.1 MG/DL (8.4-10.2); CHLORIDE 98 MEQ/L (98-107); CO2 - CARBON DIOXIDE 31 MEQ/L (22-30); CREATININE 0.5 MG/DL (0.7-1.2); GLOMERULAR FILTRATION RATE 123; GLUCOSE 114 MG/DL (65-110); POTASSIUM 4.3 MEQ/L (3.6-5); SODIUM 140 MEQ/L (134-144); TOTAL PROTEIN 7.6 G/DL (6.3-8.2)
--- NOTE | 2017-01-26 13:44 | DI ---
Indication: ITS.REASON: Preop PROCEDURE: CHEST 1 VIEW: Encounter: Initial Comparison: October 13, 2016 Findings: The lungs are stable in appearance without new focal airspace consolidation. There is no pleural effusion or pneumothorax. The heart size and mediastinal contours are unchanged. IMPRESSION: Stable appearance of the chest without acute cardiopulmonary disease. .
[2017-01-26 13:46] LABS: DIGOXIN 1.4 NG/ML (0.8-2.0)
[2017-01-26] MEDS ORDERED: MAG-AL + SIM XS 30 ML UDC PO PRN (14:00)
[2017-01-26] MEDS: NORMAL SALINE 1,000 ML IV SCH (14:07)
[2017-01-26] MEDS: CEFTRIAXONE 1 G in NORMAL SALINE 100 ML IV SCH (14:08)
[2017-01-26] MEDS ORDERED: MICONAZOLE 2% VAGINALLY ONE (14:30)
--- NOTE | 2017-01-26 14:36 | HPPDOC ---
MARCIO FAN Jp COLLISION CENTER MANAGER 01/26/17 1304: HPI - Adult Date DATE: 01/26/17 TIME: 12:57 General Chief Complaint: Left hip fracture History of Present Illness Eliza Avitia is a 66 year old woman who tried to get up without help in the morning of 01/26/17, then slipped and fell, injuring her left hip. She reported that she bumped her head lightly but denies any LOC or any other physical injury. She was taken to [facility] in [place], where she was diagnosed her with a hip fracture. Dr. Manzanares accepted her to [facility] [place]. Hx of a-fib, rate controlled with digoxin and BB but no anticoagulants other than ASA (Dr. Kilpatrick). Received [facility] meds this morning with small sip of water and a cracker - Metoprolol, Keppra, Depakote, omeprazole, digoxin, pheobarbitol, paroxetine, norco 10 for pain (routinely takes norco 7.5 QID). She was seen after arrival to [facility]. She was A&O x3. She states she is supposed to ask for help to get up to walk, but she didn't this morning, which is why she fell. ROS was positive for a cough and "clearing my throat", stomach upset when she doesn't eat anything when she takes Rutland, constipation, vaginal itching, and chronic LE edema, L>R. She is a resident at [facility] and wishes to return there for therapy. Past Medical History Past Medical History Patient's Medical History: (1) Atrial fibrillation (2) Epilepsy (3) GERD (gastroesophageal reflux disease) (4) Macular degeneration (5) Vitamin D deficiency (6) Anemia (7) Polyosteoarthritis (8) Major depressive disorder (9) Osteoporosis Surgical History Patient's Surgical History: Echo 11/2015 EF 60%, mild mitral regurgitation, mild aortic stenosis Surgical fixation of right hip fracture with gamma nail 10/14/16, Dr. Moscoso Right lumpectomy 05/11/08 Stage II invasive ductal carcinoma, Dr. Mena Right mastectomy 06/05/08, Dr. Mena B/L Blepharoplasty 12/16 ORIF left tib/fib 03/01/06 ankle fracture repair 2001 Current Medications Home Meds Active Scripts Calcium Carbonate (Calcium) 500 Mg Tablet, 500 MG PO DAILY for 30 Days, #30 TAB Prov:DOROTHEA MANZANARES MD 01/26/17 Metoprolol Succinate (Toprol Xl) 25 Mg Tab.er.24h, 25 MG PO BID for 30 Days, # 60 TAB Prov:DOROTHEA MANZANARES MD 01/26/17 Cholecalciferol (Vitamin D3) (Vitamin D3) 50,000 Unit Capsule, 1 TAB-CAP PO 1 WEEK, #12 Prov:DALILA ARCE COLLISION CENTER MANAGER 10/17/16 Reported Medications Hydrocodone/Acetaminophen (Rutland 7.5-325 Tablet) 7.5-325 Tablet, 1 TAB PO QID Y for PAIN, TAB 01/26/17 Hydrocodone/Acetaminophen (Rutland 7.5-325 Tablet) 7.5-325 Tablet, 1 TAB PO QID, TAB 01/26/17 Divalproex Sodium (Depakote) 500 Mg Tablet.dr, 1 TAB PO TID, TAB 01/26/17 Paroxetine HCl (Paroxetine HCl) 40 Mg Tablet, 1 TAB PO DAILY, #30 TAB 5 Refills 01/26/17 Ferrous Gluconate (Ferrous Gluconate) 324 Mg Tablet, 1 TAB PO BIDWM, TAB BEST WITH MEALS 01/26/17 Mag Hydrox/Al Hydrox/Simeth (Mag-Al Plus Xs Suspension) 30 Ml Suspension, 15 ML PO Q2-4H Y for PRN ORDERS 10/14/16 Vit C/E/Zn/Coppr/Lutein/Zeaxan (Preservision Areds 2 Softgel) 1 Each Capsule, 1 CAP PO BID 10/14/16 Vitamin B Complex (Vitamin B Complex) 1 Each Capsule, 50 MG PO WB 10/14/16 Mecobalamin (Methylcobalamin) 0.5 Gm Powder, 5000 TAB SL WB 10/14/16 Magnesium Oxide (Magnesium) 400 Mg Capsule, 325 MG PO HS, #180 CAP 3 Refills 10/14/16 Acetaminophen (Acetaminophen) 500 Mg Tablet, 1-2 TAB PO Q4HPRN Y for PRN ORDERS , #60 TAB 1 Refill 10/14/16 Aspirin (Aspirin) 81 Mg Tab.chew, 1 TAB PO DAILY, #30 TAB 3 Refills 10/14/16 Digoxin (Digoxin) 250 Mcg Tablet, 1 TAB PO DAILY, TAB 10/14/16 Trazodone HCl (Trazodone HCl) 50 Mg Tablet, 50 MG PO HS, TAB Take 1 tablet, by mouth, one time a day (at BEDTIME). 10/14/16 Sennosides/Docusate Sodium (Senokot-S Tablet) 1 Each Tablet, 1 TAB PO BID, #30 TAB 10/14/16 Omeprazole Magnesium (Prilosec Otc) 20 Mg Tablet.dr, 1 TAB PO DAILY, TAB 10/14/16 Gluc Gordon Dipo Ch/Billy Gordon/C/Aj (Glucosamine Chondroitin Caplet) 1 Each Tablet, 1 CAP PO BID 10/14/16 Magnesium Hydroxide (Milk of Magnesia) 400 Mg/5 Ml Oral.susp, 30 ML PO DAILY Y for PRN ORDERS 10/14/16 Polyethylene Glycol 3350 (Miralax) 17 Gm Powd.pack, 1 PACKET PO DAILY Y for PRN ORDERS, #30 PACKET 3 Refills 10/14/16 Levetiracetam (Keppra) 500 Mg Tablet, 1 TAB PO Q12HR, #180 TAB 3 Refills 10/14/16 Phenytoin Sodium Extended (Dilantin) 100 Mg Capsule, 2 CAP PO PM, CAP Take 2 (100 mg) capsules, by mouth, daily with breakfast. 10/14/16 Phenobarbital (Phenobarbital) 32.4 Mg Tablet, 2 TAB PO HS 10/14/16 Phenobarbital (Phenobarbital) 32.4 Mg Tablet, 1 TAB DAILY 10/14/16 Allergies: Coded Allergies: amoxicillin (Verified Allergy, Mild, RASH, 01/26/17) itching and rash ciprofloxacin (Verified Allergy, Mild, ITCHING, 01/26/17) sulfamethoxazole (Verified Allergy, Mild, RASH, 01/26/17) trimethoprim (Verified Allergy, Unknown, 01/26/17) Family History Family History: 2 paternal aunts and a sister had breast cancer Father - type 2 DM Brother - HTN Social History Smoking Status: Never smoker Does patient use chewing tobac: No Substance Use Type: does not use Alcohol Intake: none Marital Status: Single Housing: group home ([facility]) Current Occupational Status: unemployed Advance Directives: Yes DNR, Yes DPOA for Healthcare Only (Nidia Avitia) Social History Comments PCP - Dr. Cyndi Cavazos Review of Systems Constitutional: DENIES: chills, fever Eyes Vision: DENIES: blurring ENMT Mouth/Throat: REPORTS: sore throat (occasional), DENIES: change in swallowing Cardiovascular DENIES: orthopnea Pulmonary Respiratory: cough (chronic) GI Upper Abdomen: DENIES: nausea, vomiting Lower Abdomen: constipation, DENIES: diarrhea, melena General: incontinence, DENIES: dysuria Integumentary Skin: DENIES: rash Neurological General: seizures (hx - no recent sz), DENIES: headache Psychiatric Psychiatric: DENIES: depression Allergic/Immunological DENIES: frequent infections All Other Systems All Other Systems: Reviewed (remainder of 10-point ROS Neg.) Physical Exam General General Nourishment: well nourished, well developed Height (Feet): 5 Height (Inches): 5.00 Eyes Brief: FOUND: PERRL, NOT FOUND: scleral icterus ENMT Brief: FOUND: mucosa moist, NOT FOUND: pharnyx erythema Neck Brief: NOT FOUND: adenopathy, nuchal rigidity Respiratory Auscultation: FOUND: normal, NOT FOUND: rales, rhonchi, wheezes Cardiovascular Auscultation: FOUND: S1, S2, irregular Peripheral Pulses: 2+: Dorasalis Pedis (L), Dorsalis Pedis (R), Posterior Tibial (L), Posterior Tibial (R), Radial (L), Radial (R) Edema: 0: Anasarca, Arm (L), Arm (R), Face Comments trace edema both legs, left slightly greater than right Abdomen Inspection: NOT FOUND: distention Palpation: FOUND: soft, NOT FOUND: McBurney's point tender, Song's sign, involuntary guarding, rebound, tender, voluntary guarding Auscultation: FOUND: normo active Vulva: NOT FOUND: erythema Lymphatic (brief) Lymphatic Brief: NOT FOUND: adenopathy Musculoskeletal (brief) Musculoskeletal Brief: FOUND: deformity (left leg is in singer's traction; nv intact distally) Integumentary (brief) Integumentary Brief: FOUND: dry, pink, warm Integumentary General: FOUND: dry, warm Color: FOUND: pink Neurologic (brief) Neurological Brief: FOUND: cranial 2-12 intact (grossly), motor (full rom to shoulders, elbows, wrists) Neurologic GCS Eye Opening: (4)Spontaneous GCS Verbal: (5)Oriented GCS Motor: (6)Obeys Commands RN Documented GCS Total: 15 Psychiatric (brief) FOUND: alert, attentive, normal affect, oriented EKG A-fib without acute ST segment changes Radiology CXR - no acute findings Assessment & Plan Problems: (1) Closed left hip fracture (2) Atrial fibrillation Status: Chronic (3) Epilepsy Status: Chronic (4) GERD (gastroesophageal reflux disease) Status: Chronic (5) Osteoporosis Status: Chronic (6) Polyosteoarthritis Status: Chronic (7) Major depressive disorder Status: Chronic Qualifiers: Major depression recurrence: recurrent Active/Remission status: remission status unspecified Qualified Codes: F33.9 - Major depressive disorder, recurrent, unspecified (8) Anemia Status: Chronic Qualifiers: Anemia type: iron deficiency Iron deficiency anemia type: unspecified iron deficiency Qualified Codes: D50.9 - Iron deficiency anemia, unspecified (9) Vitamin D deficiency Status: Chronic Plan/Intensity of Service Admit to inpatient status. Consult Dr. Moscoso for surgical fixation of left hip fx. Singer's traction applied. Consult Dr. Cuevas for fragility fracture. Medically cleared for surgery. Bacturia - no dysuria but c/o vaginal itching. Byrd placed on admission. Rocephin started; also ordered dose of Monistat. A-fib - EKG shows rate-controlled rhythm. Dig level nontoxic; also on a BB. She is not on an anticoagulant other than ASA, which is being held d/t impending sx. Sz d/o - on multiple antiepileptics. No recent hx of sz. Chronic pain - takes Rutland 7.5 QID + PRN at [facility]. Will order Rutland 10 postop + IV Dilaudid for acute pain. Constipation - continue bowel regimen. Chronic anemia - type and screen ordered d/t acute fracture. Continue ferrous sulfate. Hgb 13.9 on admission. Code status - DNR. Her sister Nidia is her DPOA. DVT Prophylaxis: SCD'S Code Status Do Not Resuscitate Hospital Course Summary Disclaimer The hospital course summary below is not to be considered part of the above Progress Note. Hospital Course Summary 01/26/17 Admit to inpatient status. Consult Dr. Moscoso for surgical fixation of left hip fx. Singer's traction applied. Consult Dr. Cuevas for fragility fracture. Medically cleared for surgery. Bacturia - no dysuria but c/o vaginal itching. Byrd placed on admission. Rocephin started; also ordered dose of Monistat. A-fib - EKG shows rate-controlled rhythm. Dig level nontoxic; also on a BB. She is not on an anticoagulant other than ASA, which is being held d/t impending sx. Sz d/o - on multiple antiepileptics. No recent hx of sz. Chronic pain - takes Rutland 7.5 QID + PRN at [facility]. Will order Rutland 10 postop + IV Dilaudid for acute pain. Constipation - continue bowel regimen. Chronic anemia - type and screen ordered d/t acute fracture. Continue ferrous sulfate. Hgb 13.9 on admission. Code status - DNR. Her sister Nidia is her DPOA. DOROTHEA MANZANARES MD 01/26/17 1612: Past Medical History Current Medications Home Meds Active Scripts Calcium Carbonate (Calcium) 500 Mg Tablet, 500 MG PO DAILY for 30 Days, #30 TAB Prov:DOROTHEA MANZANARES MD 01/26/17 Metoprolol Succinate (Toprol Xl) 25 Mg Tab.er.24h, 25 MG PO BID for 30 Days, # 60 TAB Prov:DOROTHEA MANZANARES MD 01/26/17 Cholecalciferol (Vitamin D3) (Vitamin D3) 50,000 Unit Capsule, 1 TAB-CAP PO 1 WEEK, #12 Prov:DALILA ARCE COLLISION CENTER MANAGER 10/17/16 Reported Medications Hydrocodone/Acetaminophen (Rutland 7.5-325 Tablet) 7.5-325 Tablet, 1 TAB PO QID Y for PAIN, TAB 01/26/17 Hydrocodone/Acetaminophen (Rutland 7.5-325 Tablet) 7.5-325 Tablet, 1 TAB PO QID, TAB 01/26/17 Divalproex Sodium (Depakote) 500 Mg Tablet.dr, 1 TAB PO TID, TAB 01/26/17 Paroxetine HCl (Paroxetine HCl) 40 Mg Tablet, 1 TAB PO DAILY, #30 TAB 5 Refills 01/26/17 Ferrous Gluconate (Ferrous Gluconate) 324 Mg Tablet, 1 TAB PO BIDWM, TAB BEST WITH MEALS 01/26/17 Mag Hydrox/Al Hydrox/Simeth (Mag-Al Plus Xs Suspension) 30 Ml Suspension, 15 ML PO Q2-4H Y for PRN ORDERS 10/14/16 Vit C/E/Zn/Coppr/Lutein/Zeaxan (Preservision Areds 2 Softgel) 1 Each Capsule, 1 CAP PO BID 10/14/16 Vitamin B Complex (Vitamin B Complex) 1 Each Capsule, 50 MG PO WB 10/14/16 Mecobalamin (Methylcobalamin) 0.5 Gm Powder, 5000 TAB SL WB 10/14/16 Magnesium Oxide (Magnesium) 400 Mg Capsule, 325 MG PO HS, #180 CAP 3 Refills 10/14/16 Acetaminophen (Acetaminophen) 500 Mg Tablet, 1-2 TAB PO Q4HPRN Y for PRN ORDERS , #60 TAB 1 Refill 10/14/16 Aspirin (Aspirin) 81 Mg Tab.chew, 1 TAB PO DAILY, #30 TAB 3 Refills 10/14/16 Digoxin (Digoxin) 250 Mcg Tablet, 1 TAB PO DAILY, TAB 10/14/16 Trazodone HCl (Trazodone HCl) 50 Mg Tablet, 50 MG PO HS, TAB Take 1 tablet, by mouth, one time a day (at BEDTIME). 10/14/16 Sennosides/Docusate Sodium (Senokot-S Tablet) 1 Each Tablet, 1 TAB PO BID, #30 TAB 10/14/16 Omeprazole Magnesium (Prilosec Otc) 20 Mg Tablet.dr, 1 TAB PO DAILY, TAB 10/14/16 Gluc Gordon Dipo Ch/Billy Gordon/C/Aj (Glucosamine Chondroitin Caplet) 1 Each Tablet, 1 CAP PO BID 10/14/16 Magnesium Hydroxide (Milk of Magnesia) 400 Mg/5 Ml Oral.susp, 30 ML PO DAILY Y for PRN ORDERS 10/14/16 Polyethylene Glycol 3350 (Miralax) 17 Gm Powd.pack, 1 PACKET PO DAILY Y for PRN ORDERS, #30 PACKET 3 Refills 10/14/16 Levetiracetam (Keppra) 500 Mg Tablet, 1 TAB PO Q12HR, #180 TAB 3 Refills 10/14/16 Phenytoin Sodium Extended (Dilantin) 100 Mg Capsule, 2 CAP PO PM, CAP Take 2 (100 mg) capsules, by mouth, daily with breakfast. 10/14/16 Phenobarbital (Phenobarbital) 32.4 Mg Tablet, 2 TAB PO HS 10/14/16 Phenobarbital (Phenobarbital) 32.4 Mg Tablet, 1 TAB DAILY 10/14/16 Allergies: Coded Allergies: amoxicillin (Verified Allergy, Mild, RASH, 01/26/17) itching and rash ciprofloxacin (Verified Allergy, Mild, ITCHING, 01/26/17) sulfamethoxazole (Verified Allergy, Mild, RASH, 01/26/17) trimethoprim (Verified Allergy, Unknown, 01/26/17) Assessment & Plan Problems: (1) Closed left hip fracture (2) UTI (urinary tract infection) Status: Acute (3) Atrial fibrillation Status: Chronic (4) Epilepsy Status: Chronic (5) GERD (gastroesophageal reflux disease) Status: Chronic (6) Osteoporosis Status: Chronic (7) Polyosteoarthritis Status: Chronic (8) Major depressive disorder Status: Chronic Qualifiers: Major depression recurrence: recurrent Active/Remission status: remission status unspecified Qualified Codes: F33.9 - Major depressive disorder, recurrent, unspecified (9) Anemia Status: Chronic Qualifiers: Anemia type: iron deficiency Iron deficiency anemia type: unspecified iron deficiency Qualified Codes: D50.9 - Iron deficiency anemia, unspecified (10) Vitamin D deficiency Status: Chronic Plan/Intensity of Service Have independently interviewed and examined pt. Chart reviewed. Case discusses with my COLLISION CENTER MANAGER and Silvia Moscoso & Mayda.Care plan developed with my supervision; agree with above. CC: left hip pain following fall. HPI: When to ge up this morning, did not call for assistance. Lost footing and fell. Had significant discomfort to left hip area, pain worse with movement. Taken to local ED where found to have hip fracture. Prior fracture of right hip in Oct of this year. Breathing has been stable-not having SOA or cough. No chest pain or pressure. Currently pain controlled while at rest. NO current nausea. Lungs; decreased, no distress CV: irregular AB: Soft nt/nd BS decreased MSE: awake alert appropriate Plan: Inpatient admission for definitive repair of left hip fracture - consult ortho for surgical evaluation and treatment. Bed rest preop to decrease pain. Byrd to DD to monitor urine output and decrease pain by decreasing need to be up to urinate. Pain control with Rutland and Dilaudid. Zofran for nausea as needed. IS for pulm toilet. SCD preop with Lovenox added post op. PT/OT eval/ treat post op. Monitor blood counts. Start Rocephin for urinary coverage - checking c/s. Pt has been typed and screened in case of post op blood loss. MARCIO FAN COLLISION CENTER MANAGER Jan 26, 2017 13:04 DOROTHEA MANZANARES MD Jan 26, 2017 16:12
[2017-01-26 14:43] VITALS: RESP 18
[2017-01-26] MEDS ORDERED: NOZIN NASAL SWAB NS ONE (15:00)
[2017-01-26] MEDS: DIVALPROEX 500 MG TABLET PO SCH ×2 (15:06→21:04)
--- NOTE | 2017-01-26 15:11 | CONSPD ---
Consultation Info Date DATE: 01/26/17 TIME: 15:04 Attending Physician Michael Ohara MD Reason for Consultation: Left hip fx. Impression/Recommendation Impression/Recommendation: (1) Intertrochanteric fracture of left hip Status: Acute Qualifiers: Encounter type: initial encounter Fracture type: closed Qualified Codes: S72.142A - Displaced intertrochanteric fracture of left femur, initial encounter for closed fracture Recommendation: x Pt will be placed in bucks traction for comfort. Plan IM nail left hip on 01/[address] Ohara will discuss risk vs benefits and possible complications related to this procedure. Pre op antibiotics ordered. AM labs ordered. SCDs in place. Consider a single dose of Lovenox this evening. (2) Atrial fibrillation Status: Chronic (3) Epilepsy Status: Chronic (4) GERD (gastroesophageal reflux disease) Status: Chronic Ortho HPI HPI Elements Location: FOUND hip (left) Injury: Yes (Fell at the half-way in [place] 01/26/17.) Pain: FOUND sharp Onset: Sudden Radiating: No Severity: FOUND moderate, FOUND severe Duration: FOUND 1-6 hours Previous Surgery: Yes (Had a similar injury to the other hip in October 2016.) Aggrevated by: FOUND all activity Treatments Tried: FOUND pain medications, FOUND immobilization X-ray Findings: FOUND intertrochanteric fx (of the left hip) Recommendation: FOUND IM fixation (Planning surgery 01/[address] Ohara.) Review of Systems Constitutional: DENIES: chills, fever Cardiovascular DENIES: orthopnea Pulmonary Respiratory: cough (chronic) GI Upper Abdomen: DENIES: nausea, vomiting Lower Abdomen: constipation, DENIES: diarrhea, melena General: incontinence, DENIES: dysuria Integumentary Skin: DENIES: rash Neurological General: seizures (hx - no recent sz), DENIES: headache Psychiatric Psychiatric: DENIES: depression Allergic/Immunological DENIES: frequent infections All Other Systems Reviewed (remainder of 10-point ROS Neg.) Past Medical History Adult Past Medical History Patient History: (1) Atrial fibrillation (2) Epilepsy (3) GERD (gastroesophageal reflux disease) (4) Macular degeneration (5) Vitamin D deficiency (6) Anemia (7) Polyosteoarthritis (8) Major depressive disorder (9) Osteoporosis Problem List Updates Chronic epilepsy atrial fibrillation macular degeneration degenerative joint disease pain GERD Surgical History Patient's Surgical History: Echo 11/2015 EF 60%, mild mitral regurgitation, mild aortic stenosis Surgical fixation of right hip fracture with gamma nail 10/14/16, Dr. Moscoso Right lumpectomy 05/11/08 Stage II invasive ductal carcinoma, Dr. Mena Right mastectomy 06/05/08, Dr. Mena B/L Blepharoplasty 12/16 ORIF left tib/fib 03/01/06 ankle fracture repair 2001 Current Medications Acetaminophen (Acetaminophen) 500 Mg Tablet, 1-2 TAB PO Q4HPRN PRN for PRN ORDERS, (Reported) Last Taken: Unknown Dose on 01/23/17 0104 Aspirin (Aspirin) 81 Mg Tab.chew, 1 TAB PO DAILY, (Reported) Last Taken: Unknown Dose on 01/25/17 0800 Calcium Carbonate (Calcium) 500 Mg Tablet, 500 MG PO DAILY Last Taken: Unknown Dose on 01/25/17 1700 Cholecalciferol (Vitamin D3) ( Vitamin D3) 50,000 Unit Capsule, 1 TAB-CAP PO 1 WEEK Last Taken: Unknown Dose on 01/24/17 0800 Digoxin (Digoxin) 250 Mcg Tablet, 1 TAB PO DAILY, (Reported) Last Taken: Unknown Dose on 01/25/17 1005 Divalproex Sodium (Depakote) 500 Mg Tablet., 1 TAB PO TID, (Reported) Last Taken: Unknown Dose on 01/25/17 1005 Ferrous Gluconate (Ferrous Gluconate) 324 Mg Tablet, 1 TAB PO BIDWM, (Reported) BEST WITH MEALS Last Taken: Unknown Dose on 01/25/17 1730 Gluc Gordon Dipo Ch/Billy Gordon/C/Aj ( Glucosamine Chondroitin Caplet) 1 Each Tablet, 1 CAP PO BID, (Reported) Last Taken: Unknown Dose on 01/25/17 1730 Hydrocodone/Acetaminophen ([place] 7.5-325 Tablet) 7.5-325 Tablet, 1 TAB PO QID, (Reported) Last Taken: Unknown Dose on 01/25/17 2000 Hydrocodone/Acetaminophen ([place] 7.5-325 Tablet) 7.5-325 Tablet, 1 TAB PO QID PRN for PAIN, (Reported) Last Taken: Unknown Dose on 01/16/17 0418 Levetiracetam (Keppra) 500 Mg Tablet , 1 TAB PO Q12HR, (Reported) Last Taken: Unknown Dose on 01/26/17 1005 Mag Hydrox/Al Hydrox/Simeth (Mag- Al Plus Xs Suspension) 30 Ml Suspension, 15 ML PO Q2-4H PRN for PRN ORDERS, ( Reported) Last Taken: Unknown Dose on Unknown Date & Time Magnesium Hydroxide (Milk of Magnesia) 400 Mg/5 Ml Oral.susp, 30 ML PO DAILY PRN for PRN ORDERS, (Reported ) Last Taken: Unknown Dose on Unknown Date & Time Magnesium Oxide (Magnesium) 400 Mg Capsule, 325 MG PO HS, (Reported) Last Taken: Unknown Dose on 01/25/171999 Mecobalamin (Methylcobalamin) 0.5 Gm Powder, 5,000 TAB SL WB, (Reported) Last Taken: Unknown Dose on 01/25/17 08 Metoprolol Succinate (Toprol Xl) 25 Mg Tab.er.24h, 25 MG PO BID Last Taken: Unknown Dose on 01/26/171004 Omeprazole Magnesium (Prilosec Otc ) 20 Mg Tablet.dr, 1 TAB PO DAILY, (Reported) Last Taken: Unknown Dose on 01/25/171004 Paroxetine HCl (Paroxetine HCl) 40 Mg Tablet, 1 TAB PO DAILY, (Reported) Last Taken: Unknown Dose on 01/26/17 100 Phenobarbital (Phenobarbital) 32.4 Mg Tablet, 1 TAB DAILY, (Reported) Last Taken: Unknown Dose on 01/25/17 100 Phenobarbital (Phenobarbital) 32.4 Mg Tablet, 2 TAB PO HS, (Reported) Last Taken: Unknown Dose on 01/25/171999 Phenytoin Sodium Extended (Dilantin ) 100 Mg Capsule, 2 CAP PO PM, (Reported) Take 2 (100 mg) capsules, by mouth, daily with breakfast. Last Taken: Unknown Dose on 01/25/171999 Polyethylene Glycol 3350 (Miralax) 17 Gm Powd.pack, 1 PACKET PO DAILY PRN for PRN ORDERS, (Reported) Last Taken: Unknown Dose on 01/25/17 08 Sennosides/Docusate Sodium (Senokot -S Tablet) 1 Each Tablet, 1 TAB PO BID, (Reported) Last Taken: Unknown Dose on 01/25/17 08 Trazodone HCl (Trazodone HCl) 50 Mg Tablet, 50 MG PO HS, (Reported) Take 1 tablet, by mouth, one time a day (at BEDTIME). Last Taken: Unknown Dose on 01/25/171999 Vit C/E/Zn/Coppr/Lutein/Zeaxan ( Preservision Areds 2 Softgel) 1 Each Capsule, 1 CAP PO BID, (Reported) Last Taken: Unknown Dose on 01/25/17 0800 Vitamin B Complex (Vitamin B Complex) 1 Each Capsule, 50 MG PO WB, (Reported) Last Taken: Unknown Dose on 01/25/17 0800 Allergies Allergies: Coded Allergies: amoxicillin (Verified Allergy, Mild, RASH, 01/26/17) itching and rash ciprofloxacin (Verified Allergy, Mild, ITCHING, 01/26/17) sulfamethoxazole (Verified Allergy, Mild, RASH, 01/26/17) trimethoprim (Verified Allergy, Unknown, 01/26/17) Family History Family History: 2 paternal aunts and a sister had breast cancer Father - type 2 DM Brother - HTN Vaccines 07/21/2016 [id number] 07/02/2014, [id number] 09/18/2015fall 2013 Social History Smoking Status: Never smoker Does patient use chewing tobac: No Substance Use Type: does not use Alcohol Intake: none Marital Status: Single Housing: half-way ([facility]) Current Occupational Status: unemployed Advance Directives: Yes DNR, Yes DPOA for Healthcare Only ([employer]) Physical Exam General General: well nourished, well developed, no acute distress Respiratory FOUND non-labored Cardiovascular FOUND pedal pulses intact Musculoskeletal Musculoskeletal : Hip: FOUND other (pt currently in bucks traction and exam is limited.), FOUND tender over trochanter Musculoskeletal Brief: FOUND: loss of motion, spasm Neurologic FOUND intact to light touch, FOUND no deficits Psychiatric FOUND alert, FOUND normal affect Laboratory Laboratory Tests Test 01/26/17 12:58 01/26/17 13:15 Urine Collection Type Urine Color Yellow Urine Turbidity Cloudy Urine pH 6.0 Urine Specific [place] 1.020 Urine Protein Negative Urine Glucose (UA) Negative Urine Ketones Negative Urine Blood Trace-intact Urine Nitrite Positive Urine Bilirubin Negative Urine Urobilinogen 0.2EU/DL Urine Leukocyte Esterase Negative Urine RBC None seen/HPF Urine WBC 5-10/HPF Urine Squamous Epithelial Cells 20-50 Urine Bacteria 4+ Urine Culture Indicated Cult reflexed &setup White Blood Count 8.7T/MM3 Red Blood Count 4.50M/MM3 Hemoglobin 13.9GM/DL Hematocrit 41.5% Mean Corpuscular Volume 92.2UM3 Mean Corpuscular Hemoglobin 30.9UUG Mean Corpuscular Hemoglobin Concent 33.5GM/DL RDW Standard Deviation 43.1FL Platelet Count 203T/MM3 Mean Platelet Volume 9.7UM3 Immature Granulocyte % (Auto) 0.1% Neutrophils (%) (Auto) 78.6% Lymphocytes (%) (Auto) 14.6% Monocytes (%) (Auto) 6.4% Eosinophils (%) (Auto) 0.1% Basophils (%) (Auto) 0.2% Absolute Immature Granulocyte (auto 0.01T/MM3 Absolute Neutrophils (auto) 6.9T/MM3 Absolute Lymphocytes (auto) 1.3T/MM3 Absolute Monocytes (auto) 0.6T/MM3 Absolute Eosinophils (auto) 0.0T/MM3 Absolute Basophils (auto) 0.0T/MM3 Turbidity < 20 Sodium Level 140MEQ/L Potassium Level 4.3MEQ/L Chloride Level 98MEQ/L Carbon Dioxide Level 31MEQ/L Anion Gap 11MEQ/L Blood Urea Nitrogen 10.0MG/DL Creatinine 0.5MG/DL Glomerular Filtration Rate Calc 123 BUN/Creatinine Ratio 20RATIO Glucose Level 114MG/DL Calculated Osmolality 269MOSM/KG Calcium Level 9.1MG/DL Total Bilirubin 0.60MG/DL Icterus Index < 2 Aspartate Amino Transf (AST/SGOT) 25U/L Alanine Aminotransferase (ALT/SGPT) 25U/L Alkaline Phosphatase 130U/L Total Protein 7.6G/DL Albumin 4.0G/DL Globulin 3.6G/DL Albumin/Globulin Ratio 1.1RATIO 25-Hydroxy Vitamin D Total Pending 25-Hydroxy Vitamin D2 Pending 25-Hydroxy Vitamin D3 Pending Thyroid Stimulating Hormone (TSH) Pending Chemistry Specimen Hemolysis < 15 Digoxin Level 1.4NG/ML Radiology Radiology Xrays from [facility] show a displaced IT fx of the left hip. PEPITO GOMEZ Jan 26, 2017 15:08
[2017-01-26 15:15] LABS: THYROID STIM HORMONE-TSH 3.47 MIU/L (0.47-4.68)
[2017-01-26] MEDS ORDERED: ARTIFICIAL TEARS 15 ML BOTTLE BOTH EYES PRN (15:15)
[2017-01-26] MEDS ORDERED: ENOXAPARIN 40 MG/0.4 ML INJECTION SQ ONE (15:15)
--- NOTE | 2017-01-26 16:05 | NUR ---
LOVENOX THIS RN CLARIFIED WITH DR. MAYNARD IF LOVENOX SHOULD BE GIVEN DUE TO SURGERY ON 01/27/[address] PEÑA. DR. MAYNARD GAVE VERBAL ORDERS TO THIS NURSE TO HOLD TODAY'S DOSE OF LOVENOX. RN VERBALIZED UNDERSTANDING. ORDERS IMPLEMENTED.
[2017-01-26 16:06] VITALS: BP 117/72; PULSE 75; RESP 18; TEMP 97.7; O2SAT 96
[2017-01-26] MEDS: NOZIN NASAL SWAB NS SCH (17:16)
[2017-01-26] MEDS: FERROUS GLUCONATE 324 MG TABLET PO SCH (18:04)
[2017-01-26 20:16] VITALS: BP 120/67; PULSE 83; RESP 20; TEMP 98.1; O2SAT 96
[2017-01-26 20:30] VITALS: RESP 20
[2017-01-26] MEDS: PHENYTOIN 100 MG PO SCH (21:04)
[2017-01-26] MEDS: LEVETIRACETAM 500 MG TABLET PO SCH (21:04)
[2017-01-26] MEDS: METOPROLOL XL 25 MG TABLET PO SCH (21:04)
[2017-01-26] MEDS: SENNA + DOCUSATE TAB PO SCH (21:05)
[2017-01-26] MEDS: MAGNESIUM OXIDE 400 MG TABLET PO SCH (22:29)
[2017-01-26] MEDS: MULTIVIT + MINERALS (OPTI-GEN) PO SCH (22:29)
[2017-01-26] MEDS: TRAZODONE 50 MG TABLET PO SCH (22:32)
[2017-01-26] MEDS: PHENOBARBITAL 32.4 MG TABLET PO SCH (22:32)
[2017-01-26] MEDS: CHONDROITIN PO SCH (22:32)
[2017-01-26] MEDS: GLUCOSAMINE PO SCH (22:32)
[2017-01-27] VITALS (26 sets, daily range): BP systolic 83–148; BP diastolic 45–97; PULSE 72–111; RESP 12–20; TEMP 95.7–100.1; O2SAT 85–100
[2017-01-27] MEDS: NOZIN NASAL SWAB NS SCH ×3 (01:03→18:42)
--- NOTE | 2017-01-27 02:03 | NUR ---
Chart Check 24 hour chart check completed
[2017-01-27] MEDS: NORMAL SALINE 1,000 ML IV SCH (04:12)
[2017-01-27 05:32] LABS: BASOPHILS % (AUTO) 0.2 % (0-2); EOSINOPHILS % (AUTO) 0.5 % (0-4); HCT - HEMATOCRIT 32.8 % (36-46); IMMATURE GRANULOCYTE # (AUTO) 0.01 T/MM3 (0.00-0.03); IMMATURE GRANULOCYTE % (AUTO) 0.2 % (0.0-0.5); LYMPHOCYTES # (AUTO) 2.1 T/MM3 (1-4.8); LYMPHOCYTES % (AUTO) 37.1 % (23-45); MEAN CORPUSCULAR HGB CONC(MCHC 33.5 GM/DL (31-37); MEAN CORPUSCULAR VOLUME 92.4 UM3 (80-100); MEAN PLATELET VOLUME 10.2 UM3 (9.4-12.4); MONOCYTES # (AUTO) 0.8 T/MM3 (0-0.8); MONOCYTES % (AUTO) 13.6 % (0-9.0); NEUTROPHILS #(AUTO)-ABSOLUTE 2.8 T/MM3 (1.8-7.7); NEUTROPHILS % (AUTO) 48.4 % (33-66); RED BLOOD COUNT 3.55 M/MM3 (4.00-5.20); WBC - WHITE BLOOD COUNT 5.7 T/MM3 (4.5-11.0)
--- NOTE | 2017-01-27 05:45 | NUR ---
Shift Note Pt. slept between cares overnight. Midline aspirates for labwork; flushed. Left leg continues in 5# bucks traction.
[2017-01-27 05:47] LABS: ANION GAP 9 MEQ/L (5-15); BUN/CREATININE RATIO 20 RATIO (6-26); CALCIUM 8.3 MG/DL (8.4-10.2); CHLORIDE 100 MEQ/L (98-107); CO2 - CARBON DIOXIDE 30 MEQ/L (22-30); CREATININE 0.5 MG/DL (0.7-1.2); GLOMERULAR FILTRATION RATE 123; GLUCOSE 111 MG/DL (65-110); POTASSIUM 3.9 MEQ/L (3.6-5); SODIUM 139 MEQ/L (134-144)
[2017-01-27] MEDS: OMEPRAZOLE 20 MG CAPSULE PO SCH (06:22)
[2017-01-27] MEDS ORDERED: NOZIN NASAL SWAB NS ONE ×2 (07:00→10:00)
[2017-01-27] MEDS: HYDROMORPHONE 2mg/ml INJECTION IV PRN ×2 (07:45→11:37)
--- NOTE | 2017-01-27 07:55 | NUR ---
Transfer to OR Patient transferred to OR via bed. Report provided to JOSÉ ANTONIO Cabral. Medicated with dilaudid 0.5 mg just prior to transfer.
[2017-01-27] MEDS ORDERED: CLINDAMYCIN 900mg IVPB 50 ML IV ONE (08:00)
[2017-01-27] MEDS ORDERED: PNEUMOCOCCAL 13 VACCINE 0.5 ML SYRINGE IM ONE (08:00)
[2017-01-27] MEDS ORDERED: MECOBALAMIN SL SCH (08:00)
--- NOTE | 2017-01-27 08:38 | ANESPREOP ---
Anesthesia Record Date and Time DATE: 01/27/17 TIME: 08:30 Proposed Surgical Procedure gamma nail left hip NPO since: mn Allergies: Coded Allergies: amoxicillin (Verified Allergy, Mild, RASH, 01/26/17) itching and rash ciprofloxacin (Verified Allergy, Mild, ITCHING, 01/26/17) sulfamethoxazole (Verified Allergy, Mild, RASH, 01/26/17) trimethoprim (Verified Allergy, Unknown, 01/26/17) Ht/Wt/BMI Height: 5 ' 5.00 " Weight: 79.700 kg BMI: 29.2 kg/m2 Vital Signs Date Time Temp Pulse Resp B/P Pulse Ox O2 Delivery O2 Flow Rate FiO2 01/27/17 08:05 90 16 01/27/17 07:45 99.7 130/97 94 Room Air Medications Inpatient Medications Current Medications Medications (Trade) Dose Ordered Sig/Dat Start Time Stop Time Status Last Admin Dose Admin Ondansetron HCl (Zofran) 4 mg Q6H PRN 01/26/17 11:15 01/26/17 13:38 4 MG Hydromorphone HCl (Dilaudid) 0.5 mg Q3H PRN 01/26/17 11:15 01/27/17 07:45 0.5 MG Miscellaneous Medication (May use PRN orders) PRN PRN 01/26/17 11:15 Magnesium Hydroxide (Mom) 30 ml DAILY PRN 01/26/17 11:15 01/26/17 14:00 DC Bisacodyl (Dulcolax) 10 mg DAILY PRN 01/26/17 11:15 Al Hydroxide/Mg Hydroxide (Maalox) 30 ml Q3H PRN 01/26/17 11:15 01/26/17 14:00 DC Acetaminophen (Tylenol Regular Strength) 1-2 TABS PO Q5H PRN 01/26/17 11:15 01/26/17 19:24 650 MG Acetaminophen (Tylenol Suppository) 1-2 SUPPOSITORY PER RECTUM Q5H PRN 01/26/17 11:15 Nitroglycerin 0.4 mg 0.4 mg Q5M PRN 01/26/17 11:15 Ceftriaxone Sodium 1 g/Sodium Chloride 100 ml @ 200 mls/hr DAILY 01/26/17 13:45 01/26/17 14:08 200 MLS/HR Sodium Chloride (Normal Saline IV) 1,000 ml @ 75 mls/hr [id number] 01/26/17 14:00 01/27/17 04:12 75 MLS/HR Calcium Carbonate (Calcium) 500 mg DAILY 01/27/17 09:00 Digoxin (Lanoxin) 250 mcg DAILY 01/27/17 09:00 Divalproex Sodium (Depakote) 500 mg TID 01/26/17 15:00 01/26/17 21:04 500 MG Ferrous Gluconate (Fergon) 324 mg BIDWM 01/26/17 17:30 01/26/17 18:04 324 MG Levetiracetam (Keppra) 500 mg Q12HR 01/26/17 21:00 01/26/17 21:04 500 MG Al Hydroxide/Mg Hydroxide (Maalox Plus Xs) 15 ml Q2-4H PRN 01/26/17 14:00 Magnesium Hydroxide (Mom) 30 ml DAILY PRN 01/26/17 14:00 Magnesium Oxide (Magox) 400 mg HS 01/26/17 22:00 01/26/17 22:29 400 MG Metoprolol Succinate (Toprol Xl) 25 mg BID 01/26/17 21:00 01/26/17 21:04 25 MG Omeprazole (Prilosec) 20 mg ACB 01/27/17 06:30 Paroxetine HCl (Paxil) 40 mg DAILY 01/27/17 09:00 Phenytoin Sodium (Dilantin) 200 mg PM 01/26/17 20:00 01/26/17 21:04 200 MG Polyethylene Glycol (Miralax) 17 g DAILY 01/27/17 09:00 Senna/Docusate Sodium (Senna Plus) 1 tab BID 01/26/17 21:00 01/26/17 21:05 1 TAB Trazodone HCl (Desyrel) 50 mg HS 01/26/17 22:00 01/26/17 22:32 50 MG Multivitamins/ Minerals (Vision) 1 tab BID 01/26/17 21:00 01/26/17 22:29 1 TAB Ergocalciferol (Vitamin D) 50,000 unit Gordon@09 01/31/17 09:00 Glucosamine/ Chondroitin (Osteo Bi-Flex) 1 cap BID 01/26/17 21:00 01/26/17 22:32 1 CAP Non-Formulary Medication 5,000 tab WB 01/27/17 08:00 01/27/17 08:00 DC Phenobarbital (Luminal) 32.4 mg DAILY 01/27/17 09:00 Phenobarbital (Luminal) 64.8 mg HS 01/26/17 22:00 01/26/17 22:32 64.8 MG Folic Acid/ Cyanocobalamin/ pyridoxin (Folic Acid+B6+B12) 1 tab WB 01/27/17 08:00 Acetaminophen/ Hydrocodone Bitart ([place] 10/325) 1 tab Q6H PRN 01/26/17 14:00 UNV Acetaminophen/ Hydrocodone Bitart ([place] 10/325) 1 tab Q6H PRN 01/26/17 14:00 Multi-Ingredient Antiseptic (Nozin Nasal Swab) 1 each Q8HR 01/26/17 17:00 01/27/17 01:03 1 EACH Artificial Tears (Tears Naturale) 1 drop PRN PRN 01/26/17 15:15 Acetaminophen (Acetaminophen) 500 Mg Tablet, 1-2 TAB PO Q4HPRN PRN for PRN ORDERS, (Reported) Last Taken: on 01/23/17 0104 Aspirin (Aspirin) 81 Mg Tab.chew, 1 TAB PO DAILY, (Reported) Last Taken: on 01/25/17 0800 Calcium Carbonate (Calcium) 500 Mg Tablet, 500 MG PO DAILY Last Taken: on 01/25/17 1700 Cholecalciferol (Vitamin D3) (Vitamin D3) 50, 000 Unit Capsule, 1 TAB-CAP PO 1 WEEK Last Taken: on 01/24/17 0800 Digoxin (Digoxin) 250 Mcg Tablet, 1 TAB PO DAILY, (Reported) Last Taken: on 01/25/17 1005 Divalproex Sodium (Depakote) 500 Mg Tablet.dr, 1 TAB PO TID, (Reported) Last Taken: on 01/25/17 1005 Ferrous Gluconate (Ferrous Gluconate) 324 Mg Tablet, 1 TAB PO BIDWM, (Reported) BEST WITH MEALS Last Taken: on 01/25/17 1730 Gluc Gordon Dipo Ch/Billy Gordon/C/Aj (Glucosamine Chondroitin Caplet) 1 Each Tablet, 1 CAP PO BID, (Reported) Last Taken: on 01/25/17 1730 Hydrocodone/Acetaminophen ([place] 7.5-325 Tablet ) 7.5-325 Tablet, 1 TAB PO QID, (Reported) Last Taken: on 01/25/171999 Hydrocodone/Acetaminophen ([place] 7.5-325 Tablet ) 7.5-325 Tablet, 1 TAB PO QID PRN for PAIN, (Reported) Last Taken: on 01/16/17 0418 Levetiracetam (Keppra) 500 Mg Tablet, 1 TAB PO Q12HR, (Reported) Last Taken: on 01/26/17 100 Mag Hydrox/Al Hydrox/Simeth (Mag-Al Plus Xs Suspension) 30 Ml Suspension, 15 ML PO Q2-4H PRN for PRN ORDERS, (Reported) Last Taken: on Unknown Date & Time Magnesium Hydroxide (Milk of Magnesia) 400 Mg/5 Ml Oral.susp, 30 ML PO DAILY PRN for PRN ORDERS, (Reported) Last Taken: on Unknown Date & Time Magnesium Oxide (Magnesium) 400 Mg Capsule, 325 MG PO HS, (Reported) Last Taken: on 01/25/171999 Mecobalamin (Methylcobalamin) 0.5 Gm Powder, 5, 000 TAB SL WB, (Reported) Last Taken: on 01/25/17 08 Metoprolol Succinate (Toprol Xl) 25 Mg Tab.er.24h, 25 MG PO BID Last Taken: on 01/26/171004 Omeprazole Magnesium (Prilosec Otc) 20 Mg Tablet.dr, 1 TAB PO DAILY, (Reported) Last Taken: on 01/25/171004 Paroxetine HCl (Paroxetine HCl) 40 Mg Tablet, 1 TAB PO DAILY, (Reported) Last Taken: on 01/26/171004 Phenobarbital (Phenobarbital) 32.4 Mg Tablet, 1 TAB DAILY, (Reported) Last Taken: on 01/25/171004 Phenobarbital (Phenobarbital) 32.4 Mg Tablet, 2 TAB PO HS, (Reported) Last Taken: on 01/25/171999 Phenytoin Sodium Extended (Dilantin) 100 Mg Capsule, 2 CAP PO PM, (Reported) Take 2 (100 mg) capsules, by mouth, daily with breakfast. Last Taken: on 01/25/171999 Polyethylene Glycol 3350 (Miralax) 17 Gm Powd.pack, 1 PACKET PO DAILY PRN for PRN ORDERS, (Reported) Last Taken: on 01/25/17 0800 Sennosides/Docusate Sodium (Senokot-S Tablet) 1 Each Tablet, 1 TAB PO BID, (Reported) Last Taken: on 01/25/17 08 Trazodone HCl (Trazodone HCl) 50 Mg Tablet, 50 MG PO HS, (Reported) Take 1 tablet, by mouth, one time a day (at BEDTIME). Last Taken: on 01/25/171999 Vit C/E/Zn/Coppr/Lutein/Zeaxan (Preservision Areds 2 Softgel) 1 Each Capsule, 1 CAP PO BID, (Reported) Last Taken: on 01/25/17 08 Vitamin B Complex (Vitamin B Complex) 1 Each Capsule, 50 MG PO WB, (Reported) Last Taken: on 01/25/17799 Currently on Beta Salma: Yes Beta Salma Last Taken: 01/26/17 1005 Medical/Surgical History Anesthesia PMH: Reports: *Hypertension, Arthritis (polyarthritis), Cancer ( breast ca 10-15 years ago), Cardiac Arrythmia (history of A Fib), Depression, Seizures (epilepsy. Last episode 2 weeks ago) Smoking Status: Never smoker Use Chewing Tobacco?: No Second Hand Exposure: No Substance Use Type: does not use Alcohol Intake: none Past Surgical History Orthopedic Surgeries: No - ankle surgery-about 20 years ago Abdominal Surgeries: Genitourinary Surgeries: Cardiac Surgeries: Endocrine Surgeries: Reproductive Surgeries: Yes - mastectomy Neurological Surgeries: Ear Surgeries: Nose Surgeries: Throat Surgeries: Other Surgeries: No - ankle surgery-about 20 years ago Anesthesia Adverse Reactions: FOUND none Family Hx of Anesthesia Advers: none Hx of Motion Sickness: No Pertinent Findings Laboratory Tests 01/27/17 04:50 EKG Rhythm: Atrial Fibrillation Physical Exam Respiratory: Bilat breath sounds equal, Lungs clear Cardiovascular: FOUND Irregularly irregular Airway Assessment Mallampati Score: I TMD: 3 Fingerbreadths Neck Extension: Fair Teeth: Upper Dentures, Poor Dentation Overall Assessment: No Airway Concerns ASA: 3 Plan Anesthesia Plan: TIVA, LMA, GETA Discussion Discussed risks/options/alternatives of anesthesia and questions answered. Patient consents. Nursing pain assessment noted. Present: Family Member (brother at bedside) Attestation Statement Prior to the delivery of any anesthetic medication, I examined the patient, developed the plan, obtained the patient's consent and discussed the risk and benefits of the procedure with the patient/guardian. LUL COOLEY CRNA Jan 27, 2017 08:36
[2017-01-27] MEDS ORDERED: PROPOFOL 500mg 50 ML IV ONE ×2 (09:21→10:11)
[2017-01-27] MEDS ORDERED: FENTANYL 100mcg/2ml INJECTION ONE (09:22)
[2017-01-27] MEDS ORDERED: KETAMINE 500mg/10ml INJECTION ONE (09:23)
[2017-01-27] MEDS ORDERED: LIDOCAINE (2%) 100 MG/5 ML PF SYRINGE IV ONE (09:24)
[2017-01-27] MEDS ORDERED: BUPIVACAINE 0.25%/EPI 1:200,000 30ml SDV ONE (09:27)
[2017-01-27] MEDS ORDERED: SALINE FLUSH 10ml SYRINGE ONE (09:49)
[2017-01-27] MEDS ORDERED: CLINDAMYCIN 600mg IVPB 50 ML IV SCH (11:15)
--- NOTE | 2017-01-27 11:21 | PDPROCED ---
Immediate Operative Note DATE: 01/27/17 TIME: 11:19 Preop Diagnosis: Left hip IT fracture Postop Diagnosis: Left hip IT fracture Surgical Procedures: L ORIF with Cephalomedullary Device Surgeon: Mayda Admissions Clerk: DAVID Pena Anesthesia: TIVA Complications: none Estimated Blood Loss see anesthesia SHARI SHERMAN Jan 27, 2017 11:21
--- NOTE | 2017-01-27 12:05 | NUR ---
Return Patient returned to room from PACU s/p left hip repair. Patient somnolent but rousable. Denies pain. O2 on at 20/nc. pulses strong bilaterally. Dressings to left hip both dry and intact. Sister at bedside.
--- NOTE | 2017-01-27 12:23 | ANESPO ---
Post-Op Note Date 01/27/17 Time: 12:22 Status Pt Participated in Evaluation: Pt participated in person Vital Signs Date Time Temp Pulse Resp B/P Pulse Ox O2 Delivery O2 Flow Rate FiO2 01/27/17 12:17 16 01/27/17 12:05 95.7 83 137/67 97 Nasal Cannula 2.00 Respiratory Function: Airway patent, Regular respirations Cardiovascular Function: Regular pulse Telemetry Pattern: SR Mental Status: Alert/oriented Pain Level Intensity: 0 Hydration: IV infusing Complications during Recovery None apparent Follow-Up Instructions Instructions Per Surgeon ISAI HERNANDEZ CRNA Jan 27, 2017 12:23
--- NOTE | 2017-01-27 13:03 | NUR ---
MARK CM IN TO VISIT WITH PT. SHE IS GROGGY FROM SURGERY. HER DAUGHTER IS PRESENT. FAMILY CONFIRMS THAT PT RESIDES AT [facility]. THEY PLAN FOR PT TO RETURN THERE UPON DC. CM TELEPHONED THE CACHE AND SPOKE WITH BLAINE MODE. THEY CACHE HAS EXPERIENCED FLOODING. THEY ARE MADE AWARE THAT FAMILY PLANS FOR PT TO RETURN THERE. THEY WILL CONTACT CM IF FLOODING ISSUE IS NOT RESOLVED AND ALTERNATE ARRANGEMENTS NEED TO BE MADE. Addendum: 01/27/17 at 1311 by KEILA ABAD RN Amended: Links added.
--- NOTE | 2017-01-27 13:12 | DI ---
Indication: ITS.REASON: LEFT HIP GAMMA NAIL PROCEDURE: RF HIP LEFT 2 VIEW: Encounter: Initial Comparison: None Findings: Six fluoroscopic spot images are submitted for interpretation. Images show open reduction and internal fixation of a left femoral fracture with placement of an intramedullary nail and compression screw with two distal interlocking screws. Impression: Fluoroscopy as above. Fluoroscopy time is 228 seconds. Fluoroscopy dose is 5780 mRad. .
--- NOTE | 2017-01-27 14:00 | NUR ---
Pain Patient stating pain 10/10 after sitting on edge of bed with therapy. Wink 10 po provided. Able to tolerate food and fluids. VSS. On room air.
[2017-01-27] MEDS: DIGOXIN 250 MCG TABLET PO SCH (14:07)
[2017-01-27] MEDS: DIVALPROEX 500 MG TABLET PO SCH ×3 (14:08→21:48)
[2017-01-27] MEDS: LEVETIRACETAM 500 MG TABLET PO SCH ×2 (14:08→21:48)
[2017-01-27] MEDS: POLYETHYL.GLYCOL 3350 PACKET 17gm PO SCH (14:09)
[2017-01-27] MEDS: FERROUS GLUCONATE 324 MG TABLET PO SCH ×2 (14:09→18:43)
[2017-01-27] MEDS: METOPROLOL XL 25 MG TABLET PO SCH ×2 (14:10→21:47)
[2017-01-27] MEDS: CALCIUM 500 MG TABLET PO SCH (14:11)
[2017-01-27] MEDS: FOLBIC TABLET PO SCH (14:11)
[2017-01-27] MEDS: PAROXETINE 40 MG TABLET PO SCH (14:11)
[2017-01-27] MEDS: CHONDROITIN PO SCH ×2 (14:12→21:46)
[2017-01-27] MEDS: MULTIVIT + MINERALS (OPTI-GEN) PO SCH ×2 (14:12→21:48)
[2017-01-27] MEDS: GLUCOSAMINE PO SCH ×2 (14:12→21:46)
[2017-01-27] MEDS: SENNA + DOCUSATE TAB PO SCH ×2 (14:12→21:48)
[2017-01-27] MEDS: CEFTRIAXONE 1 G in NORMAL SALINE 100 ML IV SCH (14:21)
[2017-01-27] MEDS: PHENOBARBITAL 32.4 MG TABLET PO SCH ×2 (14:29→22:30)
--- NOTE | 2017-01-27 15:19 | PNPDOC ---
Subjective Date DATE: 01/27/17 TIME: 15:12 Subjective F/U: Left hip fracture, UTI Tired this afternoon. Tolerated Sx well. Was able to sit on side of bed with therapy today. Pain bothersome, but medication did help. Notes slight nausea. Breathing well-not having SOA, cough or congestion. No chest pressure or pain. Objective Vital Signs Vital signs Vital Signs Date Time Temp Pulse Resp B/P Pulse Ox O2 Delivery O2 Flow Rate FiO2 01/27/17 14:07 72 01/27/17 13:50 20 104/71 99 Nasal Cannula 1.00 01/27/17 12:05 95.7 Height (Feet): 5 Height (Inches): 5.00 Weight (Kilograms): 83.500 General General Appearance: Alert, Obese, Orientated x 3, Well Nourished, Well Developed, Looks Stated Age Eyes (Brief) Eyes: FOUND: EOMI, PERRL, NOT FOUND: scleral icterus ENMT (Brief) ENMT: FOUND: hearing intact, mucosa moist Neck (Brief) Neck: FOUND: midline, NOT FOUND: nuchal rigidity, spasm Respiratory (Brief) Respiratory: FOUND: clear all garcia, equal bilaterally, NOT FOUND: rales, wheezes Cardiovascular (Brief) Cardiac: FOUND: pedal edema (+2), regular rate, regular rhythm Abdomen (Brief) Abdominal: FOUND: BS normo active x4, soft, NOT FOUND: distended, tender (Brief) Female: FOUND: other (Byrd present ) Extremities (Brief) Extremity : Side: Bilateral Extremity: leg Extremity Finding: FOUND: edema (+2 ), other (SCD in place ) Musculoskeletal (Brief) Musculoskeletal: NOT FOUND: deformity, spasm Integumentary (Brief) Integumentary: FOUND: other (insicions covered ) Neurologic (Brief) Neurological: FOUND: cranial 2-12 intact, motor (Intact ) Psychiatric (Brief) Psychiatric: FOUND: alert, attentive, normal affect Laboratory Laboratory Laboratory Tests 01/26/17 13:15 01/27/17 04:50 Laboratory Tests 01/26/17 13:15 01/27/17 04:50 Microbiology Microbiology Microbiology Date/Time Source Procedure Growth Status 01/26/17 13:33 Not Provided Urine Culture - Preliminary Gram Negative Carson Resulted Assessment & Plan Problems: (1) Closed left hip fracture (2) UTI (urinary tract infection) Status: Acute (3) Atrial fibrillation Status: Chronic (4) Epilepsy Status: Chronic (5) GERD (gastroesophageal reflux disease) Status: Chronic (6) Osteoporosis Status: Chronic (7) Polyosteoarthritis Status: Chronic (8) Major depressive disorder Status: Chronic Qualifiers: Major depression recurrence: recurrent Active/Remission status: remission status unspecified Qualified Codes: F33.9 - Major depressive disorder, recurrent, unspecified (9) Anemia Status: Chronic Qualifiers: Anemia type: iron deficiency Iron deficiency anemia type: unspecified iron deficiency Qualified Codes: D50.9 - Iron deficiency anemia, unspecified (10) Vitamin D deficiency Status: Chronic Plan/Intensity of Service Continue Rocephin for urinary coverage - check C/S. Will continue with NS at 75 cc/hr PT/OT consulted to help increase functional status. Continue with pain control. Encourage IS and deep breathing activities. Recheck BMP in am to monitor for LEONOR due to Sx. Repeat CBC in am to monitor for post op anemia. High risk medication involved: IV Dilaudid for pain control. DVT Prophylaxis: SCD'S, Lovenox Code Status Do Not Resuscitate Hospital Course Summary Disclaimer The hospital course summary below is not to be considered part of the above Progress Note. Hospital Course Summary 01/26/17 Admit to inpatient status. Consult Dr. Moscoso for surgical fixation of left hip fx. Singer's traction applied. Consult Dr. Cuevas for fragility fracture. Medically cleared for surgery. Bacturia - no dysuria but c/o vaginal itching. Byrd placed on admission. Rocephin started; also ordered dose of Monistat. A-fib - EKG shows rate-controlled rhythm. Dig level nontoxic; also on a BB. She is not on an anticoagulant other than ASA, which is being held d/t impending sx. Sz d/o - on multiple antiepileptics. No recent hx of sz. Chronic pain - takes Wheeler 7.5 QID + PRN at [facility]. Will order Wheeler 10 postop + IV Dilaudid for acute pain. Constipation - continue bowel regimen. Chronic anemia - type and screen ordered d/t acute fracture. Continue ferrous sulfate. Hgb 13.9 on admission. Code status - DNR. Her sister Nidia is her DPOA. 01/27 OP DAY Tired this afternoon. Tolerated Sx well. Was able to sit on side of bed with therapy today. Pain bothersome, but medication did help. Notes slight nausea. Breathing well-not having SOA, cough or congestion. No chest pressure or pain. Continue Rocephin for urinary coverage - check C/S. Will continue with NS at 75 cc/hr PT/OT consulted to help increase functional status. Continue with pain control. Encourage IS and deep breathing activities. Recheck BMP in am to monitor for LEONOR due to Sx. Repeat CBC in am to monitor for post op anemia. DOROTHEA MAYNARD MD Jan 27, 2017 15:15
--- NOTE | 2017-01-27 15:26 | OPNOTEF ---
DATE OF OPERATION 01/27/2017 PREOPERATIVE DIAGNOSIS Closed comminuted left intertrochanteric hip fracture. POSTOPERATIVE DIAGNOSIS Closed comminuted left intertrochanteric hip fracture. PROCEDURE Left intertrochanteric hip fracture intramedullary nailing. SURGEON Boni Ohara MD [employer] Elie Singh PA-C ANESTHESIA TIVA with local FLUIDS Please refer to Anesthesia chart. EBL Please refer to Anesthesia chart. COMPLICATIONS None. CONDITION Stable to recovery room. IMPLANTS Scott gamma nail 11 x 380 with 95 mm cephalomedullary screw, 47.5 x 5 mm distal locking screw and 55 x 5 mm distal locking screw. DESCRIPTION OF PROCEDURE The patient was identified in the preoperative holding area. The operative extremity was identified and appropriately marked. The risks, benefits, alternatives and potential complications were discussed and informed consent was obtained. While she was on her hospital bed, appropriate cardiorespiratory monitors were applied and TIVA anesthesia was administered. The patient was then transferred to the fracture table. Peroneal post was placed. The patient was secured to the table with straps. Both lower extremities were placed in traction ski boots. The end of the table was removed, closed reduction maneuver was performed on the left hip and then placed in longitudinal traction. The right well leg was placed in an extended position. Fluoroscopy was brought in. Position of the reduction was confirmed showing overall good reduction. There was comminution noted at the lesser and tip of the greater trochanter. Overall alignment was deemed satisfactory. The left lower extremity was then sterilely prepped and draped in the usual fashion. Surgical time-out was performed, confirmed with myself, the vacuum cleaner assembler and circulating nurse. Preoperative antibiotics were given. Fluoroscopy was brought in and again surgical landmarks were delineated on the skin. The tip of the trochanter was identified. A 6 cm incision was created proximal to the trochanter. Blunt dissection was carried down through the subcutaneous fat. The gluteal fascia was then incised and a Paz elevator was used to split this down to the level of the tip of the trochanter. The guidewire was then visualized fluoroscopically in the AP and lateral planes as it was inserted at the tip of the trochanter. Note should be made that the skin was anesthetized with 0.25% Marcaine prior to incision as well as deep anesthetic placed with Marcaine utilizing fluoroscopy. The opening canal reamer and guide were then inserted and the canal was opened. This was then exchanged for a long guide aldo. This was measured and found to be a 380 mm. Sequential reaming was then performed up to 12.5 mm diameter of the femoral shaft. The nail was then assembled at the back table by the assistant professor of spanish. It was then brought forward and the nail was inserted. Fluoroscopy was used to confirm position both distally and proximally. A 2 cm incision was created laterally utilizing the distal alignment guide for the cephalomedullary screw. The incision was made after local anesthetic again for the skin and down to bone. Blunt dissection was carried out through the IT band and vastus lateralis fascia. External aiming guide was used to confirm the level of nail insertion for placement of the cephalomedullary screw. The cephalomedullary guidewire was then inserted. Its position was confirmed in the AP and lateral planes aiming for a center-center type position. Once position confirmed, this was measured and we deemed a 95-mm cephalomedullary screw would be adequate. The cephalomedullary tract was then reamed with the opening reamer. The screw was then assembled at the back table and subsequently inserted utilizing fluoroscopy as a guide. Once the depth was appropriate, position was again confirmed in the AP and lateral planes. Traction was removed from the leg and compression utilizing the insertion device was utilized. The locking screw was then inserted and position confirmed. The guidewire was then removed and the external aiming arm was removed. X-rays were obtained in the AP and lateral planes showing overall good position of both the fracture fragments and hardware. Attention was then turned towards the distal locking screw. Fluoroscopy was used to obtain perfect circles. Skin was anesthetized once marked utilizing fluoroscopy for guidance. Blunt dissection was carried down to the lateral femoral cortex. A radiolucent drill was then used to drill holes through the distal oblong dynamic hole as well as the proximal static hole. These were then measured and appropriate size locking screws were inserted. Fluoroscopy was used during this to confirm position and trajectory for drilling. X-rays were completed distally in both the AP and lateral planes, showing good fixation of distal portion of the nail. The wounds were then copiously irrigated. Standard layered closure was performed. Sterile dressings were applied. The patient was taken out of traction as the end of the table was replaced. The peroneal post was removed. The patient was subsequently extubated and placed back into her hospital bed. She was taken to the recovery room in stable and satisfactory condition. JUMANA
[2017-01-27] MEDS: CLINDAMYCIN 600mg IVPB 50 ML IV SCH ×2 (16:29→21:45)
[2017-01-27] MEDS: ENOXAPARIN 40 MG/0.4 ML INJECTION SQ SCH (21:46)
[2017-01-27] MEDS: PHENYTOIN 100 MG PO SCH (21:47)
[2017-01-27] MEDS: TRAZODONE 50 MG TABLET PO SCH (21:47)
[2017-01-27] MEDS: MAGNESIUM OXIDE 400 MG TABLET PO SCH (21:48)
[2017-01-28] VITALS (9 sets, daily range): BP systolic 103–127; BP diastolic 64–75; PULSE 92–103; RESP 16–20; TEMP 96.4–99.9; O2SAT 93–99
[2017-01-28] MEDS: NOZIN NASAL SWAB NS SCH ×3 (01:24→17:35)
[2017-01-28] MEDS: NORMAL SALINE 1,000 ML IV SCH ×3 (01:44→19:28)
[2017-01-28] MEDS: CLINDAMYCIN 600mg IVPB 50 ML IV SCH (03:54)
[2017-01-28 05:03] LABS: WBC - WHITE BLOOD COUNT 6.1 T/MM3 (4.5-11.0)
[2017-01-28 05:04] LABS: BASOPHILS % (AUTO) 0.3 % (0-2); EOSINOPHILS % (AUTO) 0.5 % (0-4); HCT - HEMATOCRIT 25.6 % (36-46); HGB - HEMOGLOBIN 8.4 GM/DL (12-16); IMMATURE GRANULOCYTE # (AUTO) 0.01 T/MM3 (0.00-0.03); IMMATURE GRANULOCYTE % (AUTO) 0.2 % (0.0-0.5); LYMPHOCYTES % (AUTO) 32.9 % (23-45); MEAN CORPUSCULAR HGB 30.7 UUG (26-34); MEAN CORPUSCULAR HGB CONC(MCHC 32.8 GM/DL (31-37); MEAN CORPUSCULAR VOLUME 93.4 UM3 (80-100); MEAN PLATELET VOLUME 10.1 UM3 (9.4-12.4); MONOCYTES # (AUTO) 0.8 T/MM3 (0-0.8); MONOCYTES % (AUTO) 12.9 % (0-9.0); NEUTROPHILS #(AUTO)-ABSOLUTE 3.2 T/MM3 (1.8-7.7); NEUTROPHILS % (AUTO) 53.2 % (33-66); RED BLOOD COUNT 2.74 M/MM3 (4.00-5.20)
[2017-01-28 05:32] LABS: ANION GAP 9 MEQ/L (5-15); BUN/CREATININE RATIO 16 RATIO (6-26); CALCIUM 8.2 MG/DL (8.4-10.2); CHLORIDE 100 MEQ/L (98-107); CO2 - CARBON DIOXIDE 29 MEQ/L (22-30); CREATININE 0.5 MG/DL (0.7-1.2); GLOMERULAR FILTRATION RATE 123; GLUCOSE 129 MG/DL (65-110); POTASSIUM 4.1 MEQ/L (3.6-5); SODIUM 138 MEQ/L (134-144)
--- NOTE | 2017-01-28 06:01 | NUR ---
SHIFT SUMMARY PATIENT IS ALERT AND ORIENTED X3 THIS SHIFT. VITAL SIGNS HAVE BEEN STABLE ON ROOM AIR. PATIENT HAS ONLY REPORTED PAIN ONCE THIS SHIFT, AND WAS GIVEN PO PAIN MEDICATION. PATIENT HAS NOT AMBULATED THIS SHIFT. BLACKWELL IS PATENT AND DRAINING. WILL CONTINUE TO MONITOR.
--- NOTE | 2017-01-28 06:15 | NUR ---
PROVIDER NOTIFICATION Notified Dr Cervantes via [employer] of patient's change in hgb from 11.0 yesterday to 8.4 this am. Also reported change in RBC down to 2.74. No new orders at this time. Will continue to monitor.
[2017-01-28] MEDS: OMEPRAZOLE 20 MG CAPSULE PO SCH (06:23)
--- NOTE | 2017-01-28 08:04 | PDORTHOPN ---
Subjective Date DATE: 01/28/17 TIME: 08:02 Subjective Doing okay. Denies pain. No complaints this AM. Hgb 8.4, pulse 103. Objective Vital Signs Vital signs Vital Signs 01/27/17 01/27/17 01/27/17 01/28/17 21:54 21:59 22:43 00:05 Temp 100.1 99.9 Pulse 111 111 92 Resp 20 18 B/P 114/67 113/75 Pulse Ox 97 95 O2 Delivery Room Air Room Air Room Air 01/28/17 01/28/17 04:29 07:41 Temp 99.3 98.9 Pulse 103 103 Resp 18 16 B/P 127/66 114/67 Pulse Ox 96 93 O2 Delivery Room Air Room Air Height (Feet): 5 Height (Inches): 5.00 Weight (Kilograms): 84.100 General General Appearance: No Acute Distress Respiratory (Brief) Respiratory Brief: FOUND: non-labored Cardiovascular (Brief) Cardiac: FOUND: calf easily compressible, calf soft, nontender, pedal pulses intact Capillary Refill: <2 sec Abdomen (Brief) Abdominal Brief: FOUND: non-tender Musculoskeletal (Brief) Hip: FOUND other (pt currently in bucks traction and exam is limited.), FOUND tender over trochanter Musculoskeletal Brief: FOUND: loss of motion, Not FOUND: spasm Surgical Site Incision: FOUND: bloody drainage present (on distal dressing, smaller than dime size.), dressing intact Integumentary (Brief) Integumentary Brief: FOUND dry, FOUND pink, FOUND warm Neurologic (Brief) Neurological Brief: FOUND: extremities w/o deficits, neuro intact Psychiatric (Brief) Psychiatric Brief: FOUND: no acute distress Laboratory Laboratory Laboratory Tests 01/26/17 13:15 01/27/17 04:50 01/28/17 04:36 Laboratory Tests 01/26/17 13:15 01/27/17 04:50 01/28/17 04:36 Microbiology Microbiology Microbiology Date/Time Source Procedure Growth Status 01/26/17 13:33 Not Provided Urine Culture - Preliminary Gram Negative Carson Resulted Assessment & Plan Problems: (1) Intertrochanteric fracture of left hip Status: Acute Qualifiers: Encounter type: initial encounter Fracture type: closed Qualified Codes: S72.142A - Displaced intertrochanteric fracture of left femur, initial encounter for closed fracture Assessment & Plan: x Pt will be placed in bucks traction for comfort. Plan IM nail left hip on 01/[address] Ohara will discuss risk vs benefits and possible complications related to this procedure. Pre op antibiotics ordered. AM labs ordered. SCDs in place. Consider a single dose of Lovenox this evening. (2) Atrial fibrillation Status: Chronic (3) Epilepsy Status: Chronic (4) GERD (gastroesophageal reflux disease) Status: Chronic Hospital Course Summary Disclaimer The visit summary below is not to be considered part of the above Progress Note. Hospital Course 01/26/17 Admit to inpatient status. Consult Dr. Moscoso for surgical fixation of left hip fx. Singer's traction applied. Consult Dr. Cuevas for fragility fracture. Medically cleared for surgery. Bacturia - no dysuria but c/o vaginal itching. Byrd placed on admission. Rocephin started; also ordered dose of Monistat. A-fib - EKG shows rate-controlled rhythm. Dig level nontoxic; also on a BB. She is not on an anticoagulant other than ASA, which is being held d/t impending sx. Sz d/o - on multiple antiepileptics. No recent hx of sz. Chronic pain - takes Mumford 7.5 QID + PRN at [facility]. Will order Mumford 10 postop + IV Dilaudid for acute pain. Constipation - continue bowel regimen. Chronic anemia - type and screen ordered d/t acute fracture. Continue ferrous sulfate. Hgb 13.9 on admission. Code status - DNR. Her sister Nidia is her DPOA. 01/27 OP DAY Tired this afternoon. Tolerated Sx well. Was able to sit on side of bed with therapy today. Pain bothersome, but medication did help. Notes slight nausea. Breathing well-not having SOA, cough or congestion. No chest pressure or pain. Continue Rocephin for urinary coverage - check C/S. Will continue with NS at 75 cc/hr PT/OT consulted to help increase functional status. Continue with pain control. Encourage IS and deep breathing activities. Recheck BMP in am to monitor for LEONOR due to Sx. Repeat CBC in am to monitor for post op anemia. SHARI SHERMAN Jan 28, 2017 08:04
[2017-01-28] MEDS: CEFTRIAXONE 1 G in NORMAL SALINE 100 ML IV SCH (09:38)
[2017-01-28] MEDS: CALCIUM 500 MG TABLET PO SCH (09:39)
[2017-01-28] MEDS: MULTIVIT + MINERALS (OPTI-GEN) PO SCH ×2 (09:40→22:25)
[2017-01-28] MEDS: DIGOXIN 250 MCG TABLET PO SCH (09:40)
[2017-01-28] MEDS: FERROUS GLUCONATE 324 MG TABLET PO SCH ×2 (09:40→17:35)
[2017-01-28] MEDS: DIVALPROEX 500 MG TABLET PO SCH ×3 (09:40→22:26)
[2017-01-28] MEDS: LEVETIRACETAM 500 MG TABLET PO SCH ×2 (09:40→22:26)
[2017-01-28] MEDS: PHENOBARBITAL 32.4 MG TABLET PO SCH ×2 (09:41→22:32)
[2017-01-28] MEDS: CHONDROITIN PO SCH ×2 (09:41→22:25)
[2017-01-28] MEDS: FOLBIC TABLET PO SCH (09:41)
[2017-01-28] MEDS: SENNA + DOCUSATE TAB PO SCH ×2 (09:41→22:25)
[2017-01-28] MEDS: METOPROLOL XL 25 MG TABLET PO SCH ×2 (09:41→22:25)
[2017-01-28] MEDS: PAROXETINE 40 MG TABLET PO SCH (09:41)
[2017-01-28] MEDS: GLUCOSAMINE PO SCH ×2 (09:41→22:25)
[2017-01-28] MEDS: POLYETHYL.GLYCOL 3350 PACKET 17gm PO SCH (09:45)
--- NOTE | 2017-01-28 11:39 | CONSPD ---
Consultation Info Date DATE: 01/28/17 TIME: 11:[address] Moscoso Reason for Consultation: Evaluate bone health Impression/Recommendation Impression/Recommendation: (1) Intertrochanteric fracture of left hip Status: Acute Qualifiers: Encounter type: initial encounter Fracture type: closed Qualified Codes: S72.142A - Displaced intertrochanteric fracture of left femur, initial encounter for closed fracture Recommendation: x Pt will be placed in bucks traction for comfort. Plan IM nail left hip on 01/[address] Ohara will discuss risk vs benefits and possible complications related to this procedure. Pre op antibiotics ordered. AM labs ordered. SCDs in place. Consider a single dose of Lovenox this evening. (2) Atrial fibrillation Status: Chronic (3) Epilepsy Status: Chronic (4) GERD (gastroesophageal reflux disease) Status: Chronic (5) Osteopenia Status: Chronic Recommendation: continue vit D. will check on getting updated DEXA Ortho HPI HPI Elements Location: FOUND hip (left) Injury: Yes (Fell at the [facility] in [place] 01/26/17.) Pain: FOUND sharp Onset: Sudden Radiating: No Severity: FOUND moderate, FOUND severe Duration: FOUND 1-6 hours Previous Surgery: Yes (Had a similar injury to the other hip in October 2016.) Aggrevated by: FOUND all activity Treatments Tried: FOUND pain medications, FOUND immobilization X-ray Findings: FOUND intertrochanteric fx (of the left hip) Recommendation: FOUND IM fixation (Planning surgery 01/[address]ara.) HPI Patient fell while trying to reach for her wheelchair. Prior fx of L hip. Does ambulate with walker. Thinks she has had a DEXA in the past. On 50,000 Vit D. Current level is 75 Review of Systems Constitutional: DENIES: chills, fever Cardiovascular DENIES: orthopnea Pulmonary Respiratory: cough (chronic) GI Upper Abdomen: DENIES: nausea, vomiting Lower Abdomen: constipation, DENIES: diarrhea, melena General: incontinence, DENIES: dysuria Integumentary Skin: DENIES: rash Neurological General: seizures (hx - no recent sz), DENIES: headache Psychiatric Psychiatric: DENIES: depression Allergic/Immunological DENIES: frequent infections All Other Systems Reviewed (remainder of 10-point ROS Neg.) Past Medical History Adult Past Medical History Patient History: (1) Atrial fibrillation (2) Epilepsy (3) GERD (gastroesophageal reflux disease) (4) Macular degeneration (5) Vitamin D deficiency (6) Anemia (7) Polyosteoarthritis (8) Major depressive disorder (9) Osteoporosis Problem List Updates Chronic epilepsy atrial fibrillation macular degeneration degenerative joint disease pain GERD Surgical History Patient's Surgical History: Echo 11/2015 EF 60%, mild mitral regurgitation, mild aortic stenosis Surgical fixation of right hip fracture with gamma nail 10/14/16, Dr. Moscoso Right lumpectomy 05/11/08 Stage II invasive ductal carcinoma, Dr. Mena Right mastectomy 06/05/08, Dr. Mena B/L Blepharoplasty 12/16 ORIF left tib/fib 03/01/06 ankle fracture repair 2001 Current Medications Acetaminophen (Acetaminophen) 500 Mg Tablet, 1-2 TAB PO Q4HPRN PRN for PRN ORDERS, (Reported) Last Taken: Unknown Dose on 01/23/17 0104 Aspirin (Aspirin) 81 Mg Tab.chew, 1 TAB PO DAILY, (Reported) Last Taken: Unknown Dose on 01/25/17 0800 Calcium Carbonate (Calcium) 500 Mg Tablet, 500 MG PO DAILY Last Taken: Unknown Dose on 01/25/17 1700 Cholecalciferol (Vitamin D3) ( Vitamin D3) 50,000 Unit Capsule, 1 TAB-CAP PO 1 WEEK Last Taken: Unknown Dose on 01/24/17 0800 Digoxin (Digoxin) 250 Mcg Tablet, 1 TAB PO DAILY, (Reported) Last Taken: Unknown Dose on 01/25/17 1005 Divalproex Sodium (Depakote) 500 Mg Tablet., 1 TAB PO TID, (Reported) Last Taken: Unknown Dose on 01/25/17 1005 Ferrous Gluconate (Ferrous Gluconate) 324 Mg Tablet, 1 TAB PO BIDWM, (Reported) BEST WITH MEALS Last Taken: Unknown Dose on 01/25/17 1730 Gluc Gordon Dipo Ch/Billy Gordon/C/Aj ( Glucosamine Chondroitin Caplet) 1 Each Tablet, 1 CAP PO BID, (Reported) Last Taken: Unknown Dose on 01/25/17 1730 Hydrocodone/Acetaminophen ([place] 7.5-325 Tablet) 7.5-325 Tablet, 1 TAB PO QID, (Reported) Last Taken: Unknown Dose on 01/25/17 2000 Hydrocodone/Acetaminophen ([place] 7.5-325 Tablet) 7.5-325 Tablet, 1 TAB PO QID PRN for PAIN, (Reported) Last Taken: Unknown Dose on 01/16/17 0418 Levetiracetam (Keppra) 500 Mg Tablet , 1 TAB PO Q12HR, (Reported) Last Taken: Unknown Dose on 01/26/17 1005 Mag Hydrox/Al Hydrox/Simeth (Mag- Al Plus Xs Suspension) 30 Ml Suspension, 15 ML PO Q2-4H PRN for PRN ORDERS, ( Reported) Last Taken: Unknown Dose on Unknown Date & Time Magnesium Hydroxide (Milk of Magnesia) 400 Mg/5 Ml Oral.susp, 30 ML PO DAILY PRN for PRN ORDERS, (Reported ) Last Taken: Unknown Dose on Unknown Date & Time Magnesium Oxide (Magnesium) 400 Mg Capsule, 325 MG PO HS, (Reported) Last Taken: Unknown Dose on 01/25/171999 Mecobalamin (Methylcobalamin) 0.5 Gm Powder, 5,000 TAB SL WB, (Reported) Last Taken: Unknown Dose on 01/25/17 0800 Metoprolol Succinate (Toprol Xl) 25 Mg Tab.er.24h, 25 MG PO BID Last Taken: Unknown Dose on 01/26/17 1005 Omeprazole Magnesium (Prilosec Otc ) 20 Mg Tablet.dr, 1 TAB PO DAILY, (Reported) Last Taken: Unknown Dose on 01/25/17 1005 Paroxetine HCl (Paroxetine HCl) 40 Mg Tablet, 1 TAB PO DAILY, (Reported) Last Taken: Unknown Dose on 01/26/17 1005 Phenobarbital (Phenobarbital) 32.4 Mg Tablet, 1 TAB DAILY, (Reported) Last Taken: Unknown Dose on 01/25/17 1005 Phenobarbital (Phenobarbital) 32.4 Mg Tablet, 2 TAB PO HS, (Reported) Last Taken: Unknown Dose on 01/25/171999 Phenytoin Sodium Extended (Dilantin ) 100 Mg Capsule, 2 CAP PO PM, (Reported) Take 2 (100 mg) capsules, by mouth, daily with breakfast. Last Taken: Unknown Dose on 01/25/171999 Polyethylene Glycol 3350 (Miralax) 17 Gm Powd.pack, 1 PACKET PO DAILY PRN for PRN ORDERS, (Reported) Last Taken: Unknown Dose on 01/25/17 0800 Sennosides/Docusate Sodium (Senokot -S Tablet) 1 Each Tablet, 1 TAB PO BID, (Reported) Last Taken: Unknown Dose on 01/25/17 0800 Trazodone HCl (Trazodone HCl) 50 Mg Tablet, 50 MG PO HS, (Reported) Take 1 tablet, by mouth, one time a day (at BEDTIME). Last Taken: Unknown Dose on 01/25/171999 Vit C/E/Zn/Coppr/Lutein/Zeaxan ( Preservision Areds 2 Softgel) 1 Each Capsule, 1 CAP PO BID, (Reported) Last Taken: Unknown Dose on 01/25/17 0800 Vitamin B Complex (Vitamin B Complex) 1 Each Capsule, 50 MG PO WB, (Reported) Last Taken: Unknown Dose on 01/25/17 0800 Allergies Allergies: Coded Allergies: amoxicillin (Verified Allergy, Mild, RASH, 01/26/17) itching and rash ciprofloxacin (Verified Allergy, Mild, ITCHING, 01/26/17) sulfamethoxazole (Verified Allergy, Mild, RASH, 01/26/17) trimethoprim (Verified Allergy, Unknown, 01/26/17) Family History Family History: 2 paternal aunts and a sister had breast cancer Father - type 2 DM Brother - HTN Vaccines 07/21/2016 [id number] 07/02/2014, [id number] 09/18/2015 fall 2013 Social History Smoking Status: Never smoker Does patient use chewing tobac: No Second Hand Exposure: No Substance Use Type: does not use Alcohol Intake: none Marital Status: Single [facility]: [facility]) Current Occupational Status: unemployed Advance Directives: Yes DNR, Yes DPOA for Healthcare Only (Nidia Avitia) Physical Exam General General: well nourished, well developed, no acute distress Respiratory FOUND non-labored Cardiovascular FOUND pedal pulses intact Musculoskeletal Musculoskeletal : Hip: FOUND other (pt currently in bucks traction and exam is limited.), FOUND tender over trochanter Musculoskeletal Brief: FOUND: loss of motion, Not FOUND: spasm Integumentary FOUND dry, FOUND pink, FOUND warm Neurologic FOUND intact to light touch, FOUND no deficits Psychiatric FOUND alert, FOUND normal affect Laboratory Laboratory Tests Test 01/28/17 04:36 White Blood Count 6.1T/MM3 Red Blood Count 2.74M/MM3 Hemoglobin 8.4GM/DL Hematocrit 25.6% Mean Corpuscular Volume 93.4UM3 Mean Corpuscular Hemoglobin 30.7UUG Mean Corpuscular Hemoglobin Concent 32.8GM/DL RDW Standard Deviation 41.5FL Platelet Count 147T/MM3 Mean Platelet Volume 10.1UM3 Immature Granulocyte % (Auto) 0.2% Neutrophils (%) (Auto) 53.2% Lymphocytes (%) (Auto) 32.9% Monocytes (%) (Auto) 12.9% Eosinophils (%) (Auto) 0.5% Basophils (%) (Auto) 0.3% Absolute Immature Granulocyte (auto 0.01T/MM3 Absolute Neutrophils (auto) 3.2T/MM3 Absolute Lymphocytes (auto) 2.0T/MM3 Absolute Monocytes (auto) 0.8T/MM3 Absolute Eosinophils (auto) 0.0T/MM3 Absolute Basophils (auto) 0.0T/MM3 Turbidity < 20 Sodium Level 138MEQ/L Potassium Level 4.1MEQ/L Chloride Level 100MEQ/L Carbon Dioxide Level 29MEQ/L Anion Gap 9MEQ/L Blood Urea Nitrogen 8.0MG/DL Creatinine 0.5MG/DL Glomerular Filtration Rate Calc 123 BUN/Creatinine Ratio 16RATIO Glucose Level 129MG/DL Calculated Osmolality 266MOSM/KG Calcium Level 8.2MG/DL Icterus Index < 2 Chemistry Specimen Hemolysis < 15 Case Report- BMD Demographics Date of Initial Screening: Jan 28, 2017 Age 66 Date of Fracture: Jan 26, 2017 Gender: Female If female: postmenopausal Race White Height (Feet): 5 Height (Inches): 5.00 Weight (Kilograms): 84.100 Site of Current Fracture Lower Limb: hip (proximal femur) Fracture History History of fracture age 50 or: Yes Fracture History: hip, ankle/foot Age at time of fractures 62-ankle, 65-hip Risk Factors Lifestyle Factors: vitamin D insufficiency (history &/or confirmed by lab), parental history of hip fx after 50 Medications at time of fractur: PPIs History of Rheumatoid Arthriti: No Secondary Osteoporosis d/t con: No Medication Use Nutritional Supplements: calcium, vitamin d Treatment/Counseling Calcium 1200 mg/day (in divide: yes Vitamin D at least 800-1000 IU: yes Regular Weight Bearing and Mus: yes Fall Prevention: yes Smoking Cessation: yes Alcohol Comsumption (no more t: yes Pharmacologic Treatment Recomend Pharmacologic Therapy: No Therapy not recommended due to: bone health assessment ongoing Pharmacologic Therapy Initiate: No Reason Not Initiating Therapy: referred to PCP Bone Mineral Density Testing Was BMD Testing Recommended?: Yes BMD Testing: planned/scheduled Written Communication Was pt provided with a letter: Yes Letter Provided to pts PCP?: Yes Discharge Status: discharge to extended care facility Additional Information Comments Spent approximately 40 min in patient evaluation NICOLLE NEAL MD Jan 28, 2017 11:29
--- NOTE | 2017-01-28 13:24 | PNPDOC ---
Subjective Date DATE: 01/28/17 TIME: 13:10 Subjective F/U: Left hip fracture, UTI Doing fair. Pain and stiffness-hurts with movements. Pain medication helping some. Mild nausea, appetite decreased. Feels need to have bowel movement, but not producing much stool. Breathing short, but not having cough. No chest pressure or pain. Objective Vital Signs Vital signs Vital Signs Date Time Temp Pulse Resp B/P Pulse Ox O2 Delivery O2 Flow Rate FiO2 01/28/17 11:35 96.4 98 16 103/64 99 Room Air 01/27/17 13:50 1.00 Height (Feet): 5 Height (Inches): 5.00 Weight (Kilograms): 84.100 General General Appearance: Alert, Obese, Well Nourished, Well Developed, Mild Distress , Looks Stated Age Eyes (Brief) Eyes: FOUND: EOMI, PERRL, NOT FOUND: scleral icterus ENMT (Brief) ENMT: FOUND: hearing intact, mucosa moist Neck (Brief) Neck: FOUND: midline, NOT FOUND: nuchal rigidity, spasm Respiratory (Brief) Respiratory: FOUND: clear all garcia, equal bilaterally, NOT FOUND: rales, wheezes Cardiovascular (Brief) Cardiac: FOUND: pedal edema (+1 ), NOT FOUND: regular rate (irregular ), regular rhythm (irregular ) Abdomen (Brief) Abdominal: FOUND: BS normo active x4, soft, NOT FOUND: distended, tender (Brief) Female: FOUND: other (Todd ) Extremities (Brief) Extremity : Side: Bilateral Extremity: leg Extremity Finding: FOUND: edema (+1 ), other (scd) Musculoskeletal (Brief) Musculoskeletal: FOUND: tenderness (By left hip ), NOT FOUND: spasm Integumentary (Brief) Integumentary: FOUND: dry, other (Left hip wound covered and dry ), warm Neurologic (Brief) Neurological: FOUND: cranial 2-12 intact, motor (Intact ) Psychiatric (Brief) Psychiatric: FOUND: alert, attentive, normal affect, oriented Laboratory Laboratory Laboratory Tests 01/26/17 13:15 01/27/17 04:50 01/28/17 04:36 Laboratory Tests 01/26/17 13:15 01/27/17 04:50 01/28/17 04:36 Microbiology Microbiology Microbiology Date/Time Source Procedure Growth Status 01/26/17 13:33 Not Provided Urine Culture - Final Escherichia Coli Complete Assessment & Plan Problems: (1) Closed left hip fracture Status: Acute Qualifiers: Encounter type: initial encounter Qualified Codes: S72.002A - Fracture of unspecified part of neck of left femur, initial encounter for closed fracture (2) Blood loss anemia Status: Acute (3) UTI (urinary tract infection) Status: Acute Assessment & Plan: E coli - sensitive to Rocephin. (4) Atrial fibrillation Status: Chronic (5) Epilepsy Status: Chronic (6) GERD (gastroesophageal reflux disease) Status: Chronic (7) Osteoporosis Status: Chronic (8) Polyosteoarthritis Status: Chronic (9) Major depressive disorder Status: Chronic Qualifiers: Major depression recurrence: recurrent Active/Remission status: remission status unspecified Qualified Codes: F33.9 - Major depressive disorder, recurrent, unspecified (10) Anemia Status: Chronic Qualifiers: Anemia type: iron deficiency Iron deficiency anemia type: unspecified iron deficiency Qualified Codes: D50.9 - Iron deficiency anemia, unspecified (11) Vitamin D deficiency Status: Chronic Plan/Intensity of Service Continue Rocephin for urinary coverage. Recheck H/H this afternoon due to decreasing hemoglobin-likely need transfusion. Will decrease IVF to 50 cc/hr-oral drive still decreased. PT/OT consulted to help increase functional status. Continue todd due to decreased functional status - possible D/C tomorrow. Continue with pain control. Discussed with nursing about pt needing to have stool-may need Dulcolax if not having adequate bowel output. Encourage IS and deep breathing activities. Recheck BMP in am to monitor for LEONOR due to Sx. Repeat CBC in am to monitor for post op anemia. Case discussed with nursing; time spent with patient care 35 minutes. High risk medication involved: IV Dilaudid for pain control. DVT Prophylaxis: SCD'S, Lovenox Code Status Do Not Resuscitate Hospital Course Summary Disclaimer The hospital course summary below is not to be considered part of the above Progress Note. Hospital Course Summary 01/26/17 Admit to inpatient status. Consult Dr. Moscoso for surgical fixation of left hip fx. Singer's traction applied. Consult Dr. Cuevas for fragility fracture. Medically cleared for surgery. Bacturia - no dysuria but c/o vaginal itching. Todd placed on admission. Rocephin started; also ordered dose of Monistat. A-fib - EKG shows rate-controlled rhythm. Dig level nontoxic; also on a BB. She is not on an anticoagulant other than ASA, which is being held d/t impending sx. Sz d/o - on multiple antiepileptics. No recent hx of sz. Chronic pain - takes [place] 7.5 QID + PRN at [facility]. Will order [place] 10 postop + IV Dilaudid for acute pain. Constipation - continue bowel regimen. Chronic anemia - type and screen ordered d/t acute fracture. Continue ferrous sulfate. Hgb 13.9 on admission. Code status - DNR. Her sister Nidia is her DPOA. 01/27 OP DAY Tired this afternoon. Tolerated Sx well. Was able to sit on side of bed with therapy today. Pain bothersome, but medication did help. Notes slight nausea. Breathing well-not having SOA, cough or congestion. No chest pressure or pain. Continue Rocephin for urinary coverage - check C/S. Will continue with NS at 75 cc/hr PT/OT consulted to help increase functional status. Continue with pain control. Encourage IS and deep breathing activities. Recheck BMP in am to monitor for LEONOR due to Sx. Repeat CBC in am to monitor for post op anemia. 01/28 Doing fair. Pain and stiffness-hurts with movements. Pain medication helping some. Mild nausea, appetite decreased. Feels need to have bowel movement, but not producing much stool. Breathing short, but not having cough. No chest pressure or pain. Continue Rocephin for urinary coverage. Recheck H/H this afternoon due to decreasing hemoglobin-likely need transfusion. Will decrease IVF to 50 cc/hr-oral drive still decreased. PT/OT consulted to help increase functional status. Continue todd due to decreased functional status - possible D/C tomorrow. Continue with pain control. Discussed with nursing about pt needing to have stool-may need Dulcolax if not having adequate bowel output. Encourage IS and deep breathing activities. Recheck BMP in am to monitor for LEONOR due to Sx. Repeat CBC in am to monitor for post op anemia. DOROTHEA MAYNARD MD Jan 28, 2017 13:14
[2017-01-28 15:20] LABS: HCT - HEMATOCRIT 23.8 % (36-46)
[2017-01-28] MEDS ORDERED: NORMAL SALINE 500 ML IV SCH (16:18)
[2017-01-28] MEDS ORDERED: DiphenhydrAMINE 25 MG CAPSULE PO ONE (16:30)
--- NOTE | 2017-01-28 18:30 | NUR ---
SHIFT SUMMARY PATIENT IS ALERT AND ORIENTED X3. PATIENT VITALS ARE STABLE AND PATIENT IS ON ROOM AIR. PATIENT DENIES CP, NAUSEA, AND SOA. PATIENT HAS NOT BEEN OUT OF BED BUT PT HAD PATIENT TO SIDE OF BED. PATIENT IS TURNED Q2HR. PATIENT BLACKWELL IS PATENT AND DRAINING. PATIENT PROXIMAL AND MIDDLE DRESSINGS ARE CLEAN DRY, AND INTACT. DISTAL DRESSING IS INTACT WITH DRAINAGE CIRCLED FROM PREVIOUS SHIFT. PATIENT HAS REQUIRE PRN PO PAIN MEDICATION 1X THIS SHIFT. FAMILY HAS BEEN AT BEDSIDE. WILL CONTINUE TO MONITOR.
[2017-01-28] MEDS: PHENYTOIN 100 MG PO SCH (19:33)
[2017-01-28] MEDS: MAGNESIUM OXIDE 400 MG TABLET PO SCH (22:25)
[2017-01-28] MEDS: ENOXAPARIN 40 MG/0.4 ML INJECTION SQ SCH (22:25)
[2017-01-28] MEDS: TRAZODONE 50 MG TABLET PO SCH (22:26)
--- NOTE | 2017-01-28 23:50 | NUR ---
Chart Check 24 hour chart check completed
[2017-01-29] VITALS (7 sets, daily range): BP systolic 107–118; BP diastolic 55–77; PULSE 83–94; RESP 16–20; TEMP 96.4–99; O2SAT 95–100
[2017-01-29] MEDS: NOZIN NASAL SWAB NS SCH ×3 (00:15→17:59)
[2017-01-29 01:53] LABS: HGB - HEMOGLOBIN 8.7 GM/DL (12-16)
[2017-01-29] MEDS: NORMAL SALINE 1,000 ML IV SCH (02:50)
[2017-01-29 05:13] LABS: BASOPHILS % (AUTO) 0.6 % (0-2); EOSINOPHILS # (AUTO) 0.1 T/MM3 (0-0.5); EOSINOPHILS % (AUTO) 1.1 % (0-4); HCT - HEMATOCRIT 26.6 % (36-46); IMMATURE GRANULOCYTE # (AUTO) 0.01 T/MM3 (0.00-0.03); IMMATURE GRANULOCYTE % (AUTO) 0.2 % (0.0-0.5); LYMPHOCYTES # (AUTO) 1.9 T/MM3 (1-4.8); LYMPHOCYTES % (AUTO) 34.2 % (23-45); MEAN CORPUSCULAR HGB 31.6 UUG (26-34); MEAN CORPUSCULAR HGB CONC(MCHC 33.8 GM/DL (31-37); MEAN CORPUSCULAR VOLUME 93.3 UM3 (80-100); MEAN PLATELET VOLUME 10.6 UM3 (9.4-12.4); MONOCYTES # (AUTO) 0.8 T/MM3 (0-0.8); MONOCYTES % (AUTO) 14.2 % (0-9.0); NEUTROPHILS #(AUTO)-ABSOLUTE 2.7 T/MM3 (1.8-7.7); NEUTROPHILS % (AUTO) 49.7 % (33-66); RED BLOOD COUNT 2.85 M/MM3 (4.00-5.20); WBC - WHITE BLOOD COUNT 5.4 T/MM3 (4.5-11.0)
--- NOTE | 2017-01-29 05:19 | NUR ---
shift summary pt has slept soundly throughout the night. pt given norco for pain, see emar for time. alert and oriented x 3. vss, on ra. pt given one unit prbc's last night, hgb from 8.0 to 8.7. denies n/v/soa. turned q2h. todd catheter with adequate output. proximal and middle dressing c/d/i, distal dressing intact with dressing circled from previous shift-no further drainage. regular diet, takes pills whole. ns running @ 75ml/hr in left upper arm midline. ice pack to left hip continuously. telemetry remains a-fib. bed locked and low, bed alarm on. call light within reach. will continue to monitor.
[2017-01-29 05:33] LABS: ANION GAP 8 MEQ/L (5-15); BUN/CREATININE RATIO 16 RATIO (6-26); CHLORIDE 101 MEQ/L (98-107); CO2 - CARBON DIOXIDE 29 MEQ/L (22-30); CREATININE 0.5 MG/DL (0.7-1.2); GLOMERULAR FILTRATION RATE 123; GLUCOSE 110 MG/DL (65-110); SODIUM 138 MEQ/L (134-144)
[2017-01-29] MEDS: OMEPRAZOLE 20 MG CAPSULE PO SCH (06:41)
--- NOTE | 2017-01-29 08:20 | NUR ---
MARK FLORES SPOKE WITH BRAYDEN, KAEL, VIA TELEPHONE. SHE REQUESTS THAT REFERRAL BE MADE TO [facility] IN CASE PT CAN'T RETURN TO [facility] FOR SNF BECAUSE OF FLOODING ISSUES. MARK WILL MAKE REFERRAL AND REPORT BACK TO [facility].
--- NOTE | 2017-01-29 08:27 | PDORTHOPN ---
Subjective Date DATE: 01/29/17 TIME: 08:23 Subjective Doing okay. Denies much pain. No complaints this AM. Hgb improving. Mobility has been limited. Objective Vital Signs Vital signs Vital Signs 01/28/17 01/29/17 01/29/17 23:38 03:12 07:33 Temp 97.5 98.3 98.6 Pulse 96 85 94 Resp 16 18 16 B/P 119/65 107/55 115/77 Pulse Ox 96 95 95 O2 Delivery Room Air Room Air Room Air Height (Feet): 5 Height (Inches): 5.00 Weight (Kilograms): 84.600 General General Appearance: Alert, No Acute Distress Respiratory (Brief) Respiratory Brief: FOUND: non-labored Cardiovascular (Brief) Cardiac: FOUND: calf easily compressible, calf soft, nontender, pedal pulses intact Surgical Site Incision: FOUND: bloody drainage present (on distal dressing, smaller than dime size.), dressing intact Integumentary (Brief) Integumentary Brief: FOUND dry, FOUND pink, FOUND warm Neurologic (Brief) Neurological Brief: FOUND: extremities w/o deficits, neuro intact Psychiatric (Brief) Psychiatric Brief: FOUND: alert, no acute distress Laboratory Laboratory Laboratory Tests 01/28/17 04:36 01/28/17 15:05 01/29/17 01:43 01/29/17 04:20 Laboratory Tests 01/28/17 04:36 01/29/17 04:20 Microbiology Microbiology Microbiology Date/Time Source Procedure Growth Status 01/26/17 13:33 Not Provided Urine Culture - Final Escherichia Coli Complete Assessment & Plan Problems: (1) Intertrochanteric fracture of left hip Status: Acute Qualifiers: Encounter type: initial encounter Fracture type: closed Qualified Codes: S72.142A - Displaced intertrochanteric fracture of left femur, initial encounter for closed fracture Assessment & Plan: x IM fixation Left hip with long Gamma Nail 01/27/17 by [facility]. Cont current anticoagulant for DVT coverage. SCDs in place. Mobilize Medical mgmt per hospitalist service. (2) Atrial fibrillation Status: Chronic (3) Epilepsy Status: Chronic (4) GERD (gastroesophageal reflux disease) Status: Chronic (5) Osteopenia Status: Chronic Assessment & Plan: continue vit D. will check on getting updated DEXA Hospital Course Summary Disclaimer The visit summary below is not to be considered part of the above Progress Note. Hospital Course 01/26/17 Admit to inpatient status. Consult Dr. Moscoso for surgical fixation of left hip fx. Singer's traction applied. Consult Dr. Cuevas for fragility fracture. Medically cleared for surgery. Bacturia - no dysuria but c/o vaginal itching. Todd placed on admission. Rocephin started; also ordered dose of Monistat. A-fib - EKG shows rate-controlled rhythm. Dig level nontoxic; also on a BB. She is not on an anticoagulant other than ASA, which is being held d/t impending sx. Sz d/o - on multiple antiepileptics. No recent hx of sz. Chronic pain - takes [place] 7.5 QID + PRN at [facility]. Will order [place] 10 postop + IV Dilaudid for acute pain. Constipation - continue bowel regimen. Chronic anemia - type and screen ordered d/t acute fracture. Continue ferrous sulfate. Hgb 13.9 on admission. Code status - DNR. Her sister Nidia is her DPOA. 01/27 OP DAY Tired this afternoon. Tolerated Sx well. Was able to sit on side of bed with therapy today. Pain bothersome, but medication did help. Notes slight nausea. Breathing well-not having SOA, cough or congestion. No chest pressure or pain. Continue Rocephin for urinary coverage - check C/S. Will continue with NS at 75 cc/hr PT/OT consulted to help increase functional status. Continue with pain control. Encourage IS and deep breathing activities. Recheck BMP in am to monitor for LEONOR due to Sx. Repeat CBC in am to monitor for post op anemia. 01/28 Doing fair. Pain and stiffness-hurts with movements. Pain medication helping some. Mild nausea, appetite decreased. Feels need to have bowel movement, but not producing much stool. Breathing short, but not having cough. No chest pressure or pain. Continue Rocephin for urinary coverage. Recheck H/H this afternoon due to decreasing hemoglobin-likely need transfusion. Will decrease IVF to 50 cc/hr-oral drive still decreased. PT/OT consulted to help increase functional status. Continue todd due to decreased functional status - possible D/C tomorrow. Continue with pain control. Discussed with nursing about pt needing to have stool-may need Dulcolax if not having adequate bowel output. Encourage IS and deep breathing activities. Recheck BMP in am to monitor for LEONOR due to Sx. Repeat CBC in am to monitor for post op anemia. PEPITO GOMEZ Jan 29, 2017 08:27
[2017-01-29] MEDS: CEFTRIAXONE 1 G in NORMAL SALINE 100 ML IV SCH (08:38)
[2017-01-29] MEDS: POLYETHYL.GLYCOL 3350 PACKET 17gm PO SCH (08:39)
[2017-01-29] MEDS: ASPIRIN *EC* 81mg TABLET PO SCH (08:39)
[2017-01-29] MEDS: DIVALPROEX 500 MG TABLET PO SCH ×3 (08:40→22:19)
[2017-01-29] MEDS: CALCIUM 500 MG TABLET PO SCH (08:40)
[2017-01-29] MEDS: SENNA + DOCUSATE TAB PO SCH ×2 (08:40→21:00)
[2017-01-29] MEDS: MULTIVIT + MINERALS (OPTI-GEN) PO SCH ×2 (08:41→22:18)
[2017-01-29] MEDS: DIGOXIN 250 MCG TABLET PO SCH (08:41)
[2017-01-29] MEDS: PHENOBARBITAL 32.4 MG TABLET PO SCH ×2 (08:41→22:18)
[2017-01-29] MEDS: LEVETIRACETAM 500 MG TABLET PO SCH ×2 (08:42→22:19)
[2017-01-29] MEDS: PAROXETINE 40 MG TABLET PO SCH (08:42)
[2017-01-29] MEDS: FOLBIC TABLET PO SCH (08:42)
[2017-01-29] MEDS: CHONDROITIN PO SCH ×2 (08:42→22:18)
[2017-01-29] MEDS: FERROUS GLUCONATE 324 MG TABLET PO SCH ×2 (08:42→17:59)
[2017-01-29] MEDS: METOPROLOL XL 25 MG TABLET PO SCH ×2 (08:42→22:18)
[2017-01-29] MEDS: GLUCOSAMINE PO SCH ×2 (08:42→22:18)
--- NOTE | 2017-01-29 09:18 | NUR ---
MARK CM IN TO VISTI WITH PT. SHE IS ALERT AND ORIENTED. SHE IS IN AGREEMENT TO THE PLAN FOR SWING AT [facility] V. SNF AT [facility].
--- NOTE | 2017-01-29 12:33 | PNPDOC ---
Subjective Date DATE: 01/29/17 TIME: 12:22 Subjective F/U: Left hip fracture, UTI Doing okay. Pain decreasing. Feels pain medications are helping and tolerated them. Tolerating therapy but progress slow and difficult - 'It's hard work!' Notes some nausea. No ab pain-bowels moving. Breathing well without SOA, cough or congestion. No chest pressure or pain. Objective Vital Signs Vital signs Vital Signs Date Time Temp Pulse Resp B/P Pulse Ox O2 Delivery O2 Flow Rate FiO2 01/29/17 08:47 Room Air 01/29/17 08:41 79 01/29/17 08:30 16 01/29/17 07:33 98.6 115/77 95 01/27/17 13:50 1.00 Height (Feet): 5 Height (Inches): 5.00 Weight (Kilograms): 84.600 General General Appearance: Alert, Obese, Orientated x 3, Well Nourished, Well Developed, Cooperative, Looks Stated Age Eyes (Brief) Eyes: FOUND: EOMI, PERRL, NOT FOUND: scleral icterus ENMT (Brief) ENMT: FOUND: hearing intact, mucosa moist Neck (Brief) Neck: FOUND: midline, NOT FOUND: nuchal rigidity, spasm Respiratory (Brief) Respiratory: FOUND: clear all garcia, equal bilaterally, NOT FOUND: rales, wheezes Cardiovascular (Brief) Cardiac: FOUND: pedal edema (+2 ), NOT FOUND: regular rate (irregular ), regular rhythm (irregular ) Abdomen (Brief) Abdominal: FOUND: soft, NOT FOUND: BS normo active x4 (Decreased ), distended, tender (Brief) Female: FOUND: other (Todd) Extremities (Brief) Extremity : Side: Bilateral Extremity: leg Extremity Finding: FOUND: edema, other (SCD ) Musculoskeletal (Brief) Musculoskeletal: FOUND: loss of motion (Decrease ROM with left hip), spasm Integumentary (Brief) Integumentary: FOUND: dry, other (Insicion covered and dry ), warm Neurologic (Brief) Neurological: FOUND: cranial 2-12 intact, motor (Intact ) Psychiatric (Brief) Psychiatric: FOUND: alert, attentive, normal affect Laboratory Laboratory Laboratory Tests 01/28/17 04:36 01/29/17 04:20 Laboratory Tests 01/28/17 04:36 01/28/17 15:05 01/29/17 01:43 01/29/17 04:20 Microbiology Microbiology Microbiology Date/Time Source Procedure Growth Status 01/26/17 13:33 Not Provided Urine Culture - Final Escherichia Coli Complete Assessment & Plan Problems: (1) Closed left hip fracture Status: Acute Qualifiers: Encounter type: initial encounter Qualified Codes: S72.002A - Fracture of unspecified part of neck of left femur, initial encounter for closed fracture (2) Blood loss anemia Status: Acute (3) UTI (urinary tract infection) Status: Acute Assessment & Plan: E coli - sensitive to Rocephin. (4) Atrial fibrillation Status: Chronic (5) Epilepsy Status: Chronic (6) GERD (gastroesophageal reflux disease) Status: Chronic (7) Osteoporosis Status: Chronic (8) Polyosteoarthritis Status: Chronic (9) Major depressive disorder Status: Chronic Qualifiers: Major depression recurrence: recurrent Active/Remission status: remission status unspecified Qualified Codes: F33.9 - Major depressive disorder, recurrent, unspecified (10) Anemia Status: Chronic Qualifiers: Anemia type: iron deficiency Iron deficiency anemia type: unspecified iron deficiency Qualified Codes: D50.9 - Iron deficiency anemia, unspecified (11) Vitamin D deficiency Status: Chronic Assessment & Plan: Repeat Vit D level shows normalization post replacement therapy. Plan/Intensity of Service Hemoglobin improved to 9.0 post transfusion yesterday afternoon - continue to monitor. Continue Rocephin for urinary coverage. Will d/c IVF. Bladder retraining. Continue PT/OT help increase functional status. Continue with pain control. Currently tolerating pain medications, and they are effective. Continue with bowel stimulation. Encourage IS and deep breathing activities. Recheck BMP in am to monitor for LEONOR due discontinuation of IVF. Repeat Hemogram in am to monitor post op anemia. Case discussed with nursing; time spent with patient care 35 minutes. DVT Prophylaxis: SCD'S, Lovenox Code Status Do Not Resuscitate Hospital Course Summary Disclaimer The hospital course summary below is not to be considered part of the above Progress Note. Hospital Course Summary 01/26/17 Admit to inpatient status. Consult Dr. Moscoso for surgical fixation of left hip fx. Singer's traction applied. Consult Dr. Cuevas for fragility fracture. Medically cleared for surgery. Bacturia - no dysuria but c/o vaginal itching. Todd placed on admission. Rocephin started; also ordered dose of Monistat. A-fib - EKG shows rate-controlled rhythm. Dig level nontoxic; also on a BB. She is not on an anticoagulant other than ASA, which is being held d/t impending sx. Sz d/o - on multiple antiepileptics. No recent hx of sz. Chronic pain - takes [place] 7.5 QID + PRN at [facility] [place]. Will order [place] 10 postop + IV Dilaudid for acute pain. Constipation - continue bowel regimen. Chronic anemia - type and screen ordered d/t acute fracture. Continue ferrous sulfate. Hgb 13.9 on admission. Code status - DNR. Her sister Nidia is her DPOA. 01/27 OP DAY Left intertrochanteric hip fracture intramedullary nailing - Dr Ohara. Tired this afternoon. Tolerated Sx well. Was able to sit on side of bed with therapy today. Pain bothersome, but medication did help. Notes slight nausea. Breathing well-not having SOA, cough or congestion. No chest pressure or pain. Continue Rocephin for urinary coverage - check C/S. Will continue with NS at 75 cc/hr PT/OT consulted to help increase functional status. Continue with pain control. Encourage IS and deep breathing activities. Recheck BMP in am to monitor for LEONOR due to Sx. Repeat CBC in am to monitor for post op anemia. 01/28 POD #2 Doing fair. Pain and stiffness-hurts with movements. Pain medication helping some. Mild nausea, appetite decreased. Feels need to have bowel movement, but not producing much stool. Breathing short, but not having cough. No chest pressure or pain. Continue Rocephin for urinary coverage. Recheck H/H this afternoon due to decreasing hemoglobin-likely need transfusion. Will decrease IVF to 50 cc/hr-oral drive still decreased. PT/OT consulted to help increase functional status. Continue todd due to decreased functional status - possible D/C tomorrow. Continue with pain control. Discussed with nursing about pt needing to have stool-may need Dulcolax if not having adequate bowel output. Encourage IS and deep breathing activities. Recheck BMP in am to monitor for LEONOR due to Sx. Repeat CBC in am to monitor for post op anemia. 01/29 POD #3 Doing okay. Pain decreasing. Feels pain medications are helping and tolerated them. Tolerating therapy but progress slow and difficult - 'It's hard work!' Notes some nausea. No ab pain-bowels moving. Breathing well without SOA, cough or congestion. No chest pressure or pain. Hemoglobin improved to 9.0 post transfusion yesterday afternoon - continue to monitor. Continue Rocephin for urinary coverage. Will d/c IVF. Bladder retraining. Continue PT/OT help increase functional status. Continue with pain control. Currently tolerating pain medications, and they are effective. Continue with bowel stimulation. Encourage IS and deep breathing activities. Recheck BMP in am to monitor for LEONOR due discontinuation of IVF. Repeat Hemogram in am to monitor post op anemia. DOROTHEA MAYNARD MD Jan 29, 2017 12:25
--- NOTE | 2017-01-29 18:42 | NUR ---
STATUS PT A/O X3. UP WITH SIT TO STAND. PT COMPLAINS OF PAIN IN BILAT HIPS. PRN [place] 10 GIVEN DOCUMENTED. PT ON RA, TOLERATING WELL. VS STABLE. DID HAVE LOW OUTPUT AT 1400, DR NOTIFIED DOCUMENTED. ENCOURAGING FLUIDS. BLACKWELL PATENT. BLADDER RETRAINING. DRESSINGS INTACT, DISTAL LEFT HIP DRESSING HAS SMALL DRAINAGE THAT WAS CIRCLED. NO NEW DRAINAGE. PT UP IN CHAIR WITH ALARM. CALL LIGHT WITHIN REACH. WILL CONTINUE TO MONITOR.
[2017-01-29] MEDS: ENOXAPARIN 40 MG/0.4 ML INJECTION SQ SCH (22:18)
[2017-01-29] MEDS: MAGNESIUM OXIDE 400 MG TABLET PO SCH (22:18)
[2017-01-29] MEDS: PHENYTOIN 100 MG PO SCH (22:19)
[2017-01-29] MEDS: TRAZODONE 50 MG TABLET PO SCH (22:19)
[2017-01-30] VITALS (8 sets, daily range): BP systolic 115–164; BP diastolic 67–98; PULSE 66–109; RESP 14–20; TEMP 96.3–97.7; O2SAT 92–98
[2017-01-30] MEDS: NOZIN NASAL SWAB NS SCH ×3 (00:54→17:09)
[2017-01-30 05:31] LABS: HCT - HEMATOCRIT 24.6 % (36-46); HGB - HEMOGLOBIN 8.3 GM/DL (12-16); MEAN CORPUSCULAR HGB 31.3 UUG (26-34); MEAN CORPUSCULAR HGB CONC(MCHC 33.7 GM/DL (31-37); MEAN CORPUSCULAR VOLUME 92.8 UM3 (80-100); MEAN PLATELET VOLUME 10.6 UM3 (9.4-12.4); RED BLOOD COUNT 2.65 M/MM3 (4.00-5.20); WBC - WHITE BLOOD COUNT 4.8 T/MM3 (4.5-11.0)
[2017-01-30 05:42] LABS: ANION GAP 9 MEQ/L (5-15); BUN/CREATININE RATIO 20 RATIO (6-26); CALCIUM 8.1 MG/DL (8.4-10.2); CHLORIDE 98 MEQ/L (98-107); CO2 - CARBON DIOXIDE 29 MEQ/L (22-30); CREATININE 0.4 MG/DL (0.7-1.2); GLOMERULAR FILTRATION RATE 159; GLUCOSE 109 MG/DL (65-110); POTASSIUM 3.9 MEQ/L (3.6-5); SODIUM 136 MEQ/L (134-144)
[2017-01-30] MEDS: OMEPRAZOLE 20 MG CAPSULE PO SCH (06:42)
--- NOTE | 2017-01-30 07:13 | NUR ---
SHIFT SUMMARY PT ALERT AND ORIENTED X3, VITAL SIGNS ARE STABLE ON ROOM AIR. PT UP IN CHAIR AT BEGINNING OF SHIFT UNTIL AROUND 2100 THEN PLACED BACK TO BED WITH 2 ASSIST AND A SIT TO STAND. PT ALSO STATED THAT SHE WOULD NOT BE GETTING OUT OF BED ON DAY SHIFT. THIS RN INFORMED HER THAT IN ORDER TO GAIN STRENGTH AND PROGRESS THAT DAY SHIFT WOULD BE GETTING HER UP AND MOVING. PT HAS REQUIRED 2 DOSES OF PO PRN PAIN MEDICATION. AT START OF SHIFT PT URINE OUTPUT WAS LOW BUT STEADILY INCREASED THROUGHOUT THIS SHIFT. WILL CONTINUE TO MONITOR.
[2017-01-30] MEDS: SENNA + DOCUSATE TAB PO SCH ×2 (09:00→21:03)
[2017-01-30] MEDS: POLYETHYL.GLYCOL 3350 PACKET 17gm PO SCH (09:00)
[2017-01-30] MEDS: METOPROLOL XL 25 MG TABLET PO SCH ×2 (09:18→21:02)
[2017-01-30] MEDS: MULTIVIT + MINERALS (OPTI-GEN) PO SCH ×2 (09:18→21:01)
[2017-01-30] MEDS: PHENOBARBITAL 32.4 MG TABLET PO SCH ×2 (09:18→22:45)
[2017-01-30] MEDS: GLUCOSAMINE PO SCH ×2 (09:18→21:02)
[2017-01-30] MEDS: FOLBIC TABLET PO SCH (09:18)
[2017-01-30] MEDS: DIVALPROEX 500 MG TABLET PO SCH ×3 (09:18→21:02)
[2017-01-30] MEDS: CHONDROITIN PO SCH ×2 (09:18→21:02)
[2017-01-30] MEDS: DIGOXIN 250 MCG TABLET PO SCH (09:18)
[2017-01-30] MEDS: ASPIRIN *EC* 81mg TABLET PO SCH (09:19)
[2017-01-30] MEDS: LEVETIRACETAM 500 MG TABLET PO SCH ×2 (09:19→21:02)
[2017-01-30] MEDS: PAROXETINE 40 MG TABLET PO SCH (09:19)
[2017-01-30] MEDS: CALCIUM 500 MG TABLET PO SCH (09:19)
[2017-01-30] MEDS: FERROUS GLUCONATE 324 MG TABLET PO SCH ×2 (09:19→17:09)
[2017-01-30] MEDS: CEFTRIAXONE 1 G in NORMAL SALINE 100 ML IV SCH (09:20)
[2017-01-30] MEDS: NS 500 ML IV PRN (09:20)
--- NOTE | 2017-01-30 13:43 | PNPDOC ---
Subjective Date DATE: 01/30/17 TIME: 13:35 Subjective F/U: Left hip fracture, UTI Doing about the same. Still with discomfort to left hip. Pain increases with activities. Therapy challenging due to the pain. Bowel moving. No ab pain or nausea. Appetite about the same. Breathing well. No chest pain. No f/c. Objective Vital Signs Vital signs Vital Signs Date Time Temp Pulse Resp B/P Pulse Ox O2 Delivery O2 Flow Rate FiO2 01/30/17 11:19 97.2 70 16 130/69 98 Room Air 01/27/17 13:50 1.00 Height (Feet): 5 Height (Inches): 5.00 Weight (Kilograms): 85.100 General General Appearance: Alert, Obese, Well Nourished, Well Developed, Looks Stated Age Eyes (Brief) Eyes: FOUND: EOMI, PERRL, NOT FOUND: scleral icterus ENMT (Brief) ENMT: FOUND: hearing intact, mucosa moist Neck (Brief) Neck: FOUND: nuchal rigidity, spasm, NOT FOUND: midline Respiratory (Brief) Respiratory: FOUND: clear all garcia, equal bilaterally, NOT FOUND: rales, wheezes Cardiovascular (Brief) Cardiac: FOUND: pedal edema (+2), regular rate, regular rhythm Abdomen (Brief) Abdominal: FOUND: BS normo active x4, soft, NOT FOUND: distended, tender (Brief) Female: FOUND: other (Todd ) Extremities (Brief) Extremity : Side: Bilateral Extremity: leg Extremity Finding: FOUND: edema (+2 ), other (SCD ) Musculoskeletal (Brief) Musculoskeletal: NOT FOUND: deformity, spasm Integumentary (Brief) Integumentary: FOUND: dry, warm Neurologic (Brief) Neurological: FOUND: cranial 2-12 intact, motor (Intact ) Psychiatric (Brief) Psychiatric: FOUND: alert, attentive, normal affect, oriented Laboratory Laboratory Laboratory Tests 01/29/17 04:20 01/30/17 03:58 Laboratory Tests 01/28/17 15:05 01/29/17 01:43 01/29/17 04:20 01/30/17 03:58 Assessment & Plan Problems: (1) Closed left hip fracture Status: Acute Qualifiers: Encounter type: initial encounter Qualified Codes: S72.002A - Fracture of unspecified part of neck of left femur, initial encounter for closed fracture (2) Blood loss anemia Status: Acute Assessment & Plan: 01/28: Transfusion 1 unit pRBC. (3) UTI (urinary tract infection) Status: Acute Assessment & Plan: E coli - sensitive to Rocephin. (4) Atrial fibrillation Status: Chronic (5) Epilepsy Status: Chronic (6) GERD (gastroesophageal reflux disease) Status: Chronic (7) Osteoporosis Status: Chronic (8) Polyosteoarthritis Status: Chronic (9) Major depressive disorder Status: Chronic Qualifiers: Major depression recurrence: recurrent Active/Remission status: remission status unspecified Qualified Codes: F33.9 - Major depressive disorder, recurrent, unspecified (10) Anemia Status: Chronic Qualifiers: Anemia type: iron deficiency Iron deficiency anemia type: unspecified iron deficiency Qualified Codes: D50.9 - Iron deficiency anemia, unspecified (11) Vitamin D deficiency Status: Chronic Assessment & Plan: Repeat Vit D level shows normalization post replacement therapy. Plan/Intensity of Service Hemoglobin improved to 8.3 this am - recheck this afternoon. Continue Rocephin for urinary coverage. D/C Todd cath - monitor for retention. Encourage therapy to help maximize functional status. Continue with pain control. Currently tolerating pain medications, and they are effective. Continue with bowel stimulation. Encourage IS and deep breathing activities. Repeat Hemogram in am to monitor post op anemia. Time spent with patient care 25 minutes. DVT Prophylaxis: SCD'S, Lovenox Code Status Do Not Resuscitate Hospital Course Summary Disclaimer The hospital course summary below is not to be considered part of the above Progress Note. Hospital Course Summary 01/26/17 Admit to inpatient status. Consult Dr. Moscoso for surgical fixation of left hip fx. Singer's traction applied. Consult Dr. Cuevas for fragility fracture. Medically cleared for surgery. Bacturia - no dysuria but c/o vaginal itching. Todd placed on admission. Rocephin started; also ordered dose of Monistat. A-fib - EKG shows rate-controlled rhythm. Dig level nontoxic; also on a BB. She is not on an anticoagulant other than ASA, which is being held d/t impending sx. Sz d/o - on multiple antiepileptics. No recent hx of sz. Chronic pain - takes [place] 7.5 QID + PRN at [facility]. Will order [place] 10 postop + IV Dilaudid for acute pain. Constipation - continue bowel regimen. Chronic anemia - type and screen ordered d/t acute fracture. Continue ferrous sulfate. Hgb 13.9 on admission. Code status - DNR. Her sister Nidia is her DPOA. 01/27 OP DAY Left intertrochanteric hip fracture intramedullary nailing - Dr Ohara. Tired this afternoon. Tolerated Sx well. Was able to sit on side of bed with therapy today. Pain bothersome, but medication did help. Notes slight nausea. Breathing well-not having SOA, cough or congestion. No chest pressure or pain. Continue Rocephin for urinary coverage - check C/S. Will continue with NS at 75 cc/hr PT/OT consulted to help increase functional status. Continue with pain control. Encourage IS and deep breathing activities. Recheck BMP in am to monitor for LEONOR due to Sx. Repeat CBC in am to monitor for post op anemia. 01/28 POD #2 Doing fair. Pain and stiffness-hurts with movements. Pain medication helping some. Mild nausea, appetite decreased. Feels need to have bowel movement, but not producing much stool. Breathing short, but not having cough. No chest pressure or pain. Continue Rocephin for urinary coverage. Recheck H/H this afternoon due to decreasing hemoglobin-likely need transfusion. Will decrease IVF to 50 cc/hr-oral drive still decreased. PT/OT consulted to help increase functional status. Continue todd due to decreased functional status - possible D/C tomorrow. Continue with pain control. Discussed with nursing about pt needing to have stool-may need Dulcolax if not having adequate bowel output. Encourage IS and deep breathing activities. Recheck BMP in am to monitor for LEONOR due to Sx. Repeat CBC in am to monitor for post op anemia. 01/29 POD #3 Doing okay. Pain decreasing. Feels pain medications are helping and tolerated them. Tolerating therapy but progress slow and difficult - 'It's hard work!' Notes some nausea. No ab pain-bowels moving. Breathing well without SOA, cough or congestion. No chest pressure or pain. Hemoglobin improved to 9.0 post transfusion yesterday afternoon - continue to monitor. Continue Rocephin for urinary coverage. Will d/c IVF. Bladder retraining. Continue PT/OT help increase functional status. Continue with pain control. Currently tolerating pain medications, and they are effective. Continue with bowel stimulation. Encourage IS and deep breathing activities. Recheck BMP in am to monitor for LEONOR due discontinuation of IVF. Repeat Hemogram in am to monitor post op anemia. 01/30 POD#4 Doing about the same. Still with discomfort to left hip. Pain increases with activities. Therapy challenging due to the pain. Bowel moving. No ab pain or nausea. Appetite about the same. Breathing well. No chest pain. No f/c. Hemoglobin improved to 8.3 this am - recheck this afternoon. Continue Rocephin for urinary coverage. D/C Todd cath - monitor for retention. Encourage therapy to help maximize functional status. Continue with pain control. Currently tolerating pain medications, and they are effective. Continue with bowel stimulation. Encourage IS and deep breathing activities. Repeat Hemogram in am to monitor post op anemia. DOROTHEA MAYNARD MD Jan 30, 2017 13:39
[2017-01-30 14:53] LABS: HCT - HEMATOCRIT 25.8 % (36-46); HGB - HEMOGLOBIN 8.7 GM/DL (12-16)
[2017-01-30] MEDS: PHENYTOIN 100 MG PO SCH (21:01)
[2017-01-30] MEDS: ENOXAPARIN 40 MG/0.4 ML INJECTION SQ SCH (21:02)
[2017-01-30] MEDS: MAGNESIUM OXIDE 400 MG TABLET PO SCH (22:45)
[2017-01-30] MEDS: TRAZODONE 50 MG TABLET PO SCH (22:45)
[2017-01-31] VITALS (8 sets, daily range): BP systolic 112–138; BP diastolic 62–85; PULSE 65–102; RESP 14–16; TEMP 96.7–98.7; O2SAT 93–96
[2017-01-31] MEDS: NOZIN NASAL SWAB NS SCH ×3 (00:22→18:17)
[2017-01-31 05:40] LABS: HCT - HEMATOCRIT 27.2 % (36-46); HGB - HEMOGLOBIN 9.1 GM/DL (12-16); MEAN CORPUSCULAR HGB 31.5 UUG (26-34); MEAN CORPUSCULAR HGB CONC(MCHC 33.5 GM/DL (31-37); MEAN CORPUSCULAR VOLUME 94.1 UM3 (80-100); MEAN PLATELET VOLUME 10.3 UM3 (9.4-12.4); RED BLOOD COUNT 2.89 M/MM3 (4.00-5.20); WBC - WHITE BLOOD COUNT 4.7 T/MM3 (4.5-11.0)
--- NOTE | 2017-01-31 05:46 | NUR ---
SHIFT SUMMARY PATIENT IS ALERT AND ORIENTED X3 THIS SHIFT. VITAL SIGNS ARE STABLE ON ROOM AIR. PATIENT USES SIT TO STAND LIFT TO TRANSFER FROM COMMODE OR CHAIR TO BED. PATIENT DID REPORT SOME PAIN THIS SHIFT, BUT WAS MANAGED WITH ORAL PAIN MEDICATION. DENIES N/V. WILL CONTINUE TO MONITOR.
[2017-01-31] MEDS: OMEPRAZOLE 20 MG CAPSULE PO SCH (06:21)
[2017-01-31] MEDS: POLYETHYL.GLYCOL 3350 PACKET 17gm PO SCH (08:24)
[2017-01-31] MEDS: CHONDROITIN PO SCH ×2 (08:24→21:03)
[2017-01-31] MEDS: GLUCOSAMINE PO SCH ×2 (08:24→21:03)
[2017-01-31] MEDS: FERROUS GLUCONATE 324 MG TABLET PO SCH ×2 (08:25→18:17)
[2017-01-31] MEDS: MULTIVIT + MINERALS (OPTI-GEN) PO SCH ×2 (08:25→20:47)
[2017-01-31] MEDS: PHENOBARBITAL 32.4 MG TABLET PO SCH ×2 (08:25→21:01)
[2017-01-31] MEDS: ASPIRIN *EC* 81mg TABLET PO SCH (08:25)
[2017-01-31] MEDS: SENNA + DOCUSATE TAB PO SCH ×2 (08:26→20:49)
[2017-01-31] MEDS: DIGOXIN 250 MCG TABLET PO SCH (08:26)
[2017-01-31] MEDS: PAROXETINE 40 MG TABLET PO SCH (08:26)
[2017-01-31] MEDS: LEVETIRACETAM 500 MG TABLET PO SCH ×2 (08:26→20:48)
[2017-01-31] MEDS: DIVALPROEX 500 MG TABLET PO SCH ×3 (08:26→20:48)
[2017-01-31] MEDS: METOPROLOL XL 25 MG TABLET PO SCH ×2 (08:26→20:48)
[2017-01-31] MEDS: FOLBIC TABLET PO SCH (08:26)
[2017-01-31] MEDS: CALCIUM 500 MG TABLET PO SCH (08:29)
[2017-01-31] MEDS ORDERED: ERGOCALCIFEROL 50,000 UNIT CAPSULE PO SCH (09:00)
[2017-01-31] MEDS: NS 500 ML IV PRN (11:53)
[2017-01-31] MEDS: CEFTRIAXONE 1 G in NORMAL SALINE 100 ML IV SCH (11:53)
--- NOTE | 2017-01-31 12:10 | PNPDOC ---
DALILA ARCE FERRY CAPTAIN 01/31/17 1206: Subjective Date DATE: 01/31/17 TIME: 12:02 Subjective Eliza is seen today in follow up. She is up in chair. Is alert- she seems maybe to have a bit of slowed mentation- this is my first visit with her, so unclear on past status. She does answer yes/no questions and denies pain. Chart is reviewed. RN has questions about LOTx for abx. Objective Vital Signs Vital signs Vital Signs Date Time Temp Pulse Resp B/P Pulse Ox O2 Delivery O2 Flow Rate FiO2 01/31/17 11:44 97.1 65 16 112/71 96 Room Air 01/27/17 13:50 1.00 Height (Feet): 5 Height (Inches): 5.00 Weight (Kilograms): 85.700 General General Appearance: Alert, Cooperative, No Acute Distress Comments Alert- slowed mentation? Eyes (Brief) Eyes: FOUND: EOMI, PERRL (4mm bilaterally), NOT FOUND: scleral icterus ENMT (Brief) ENMT: FOUND: mucosa moist Neck (Brief) Neck: FOUND: midline, NOT FOUND: JVD, nuchal rigidity, spasm Respiratory (Brief) Respiratory: FOUND: clear all garcia, equal bilaterally, symmetrical, NOT FOUND : rales, wheezes Cardiovascular (Brief) Cardiac: FOUND: pedal edema, peripheral edema, regular rate, NOT FOUND: murmur , regular rhythm Abdomen (Brief) Abdominal: FOUND: BS normo active x4, soft, NOT FOUND: distended, tender Extremities (Brief) Extremity : Side: Bilateral Extremity Finding: FOUND: edema (2+) Musculoskeletal (Brief) Musculoskeletal: FOUND: loss of motion, tenderness Integumentary (Brief) Integumentary: FOUND: dry, pink, warm Psychiatric (Brief) Psychiatric: FOUND: alert, NOT FOUND: normal affect Laboratory Laboratory Laboratory Tests 01/30/17 03:58 Laboratory Tests 01/30/17 03:58 01/30/17 14:45 01/31/17 04:05 Sepsis Diagnostic Criteria Sepsis Confirmed/Suspected Infection: No Assessment & Plan Problems: (1) Closed left hip fracture Status: Acute Qualifiers: Encounter type: initial encounter Qualified Codes: S72.002A - Fracture of unspecified part of neck of left femur, initial encounter for closed fracture (2) Blood loss anemia Status: Acute Assessment & Plan: 01/28: Transfusion 1 unit pRBC. (3) UTI (urinary tract infection) Status: Acute Assessment & Plan: E coli - sensitive to Rocephin. s/p 6 days Rocephin, stop 01/31 (4) Atrial fibrillation Status: Chronic (5) Epilepsy Status: Chronic (6) GERD (gastroesophageal reflux disease) Status: Chronic (7) Osteoporosis Status: Chronic (8) Polyosteoarthritis Status: Chronic (9) Major depressive disorder Status: Chronic Qualifiers: Major depression recurrence: recurrent Active/Remission status: remission status unspecified Qualified Codes: F33.9 - Major depressive disorder, recurrent, unspecified (10) Anemia Status: Chronic Qualifiers: Anemia type: iron deficiency Iron deficiency anemia type: unspecified iron deficiency Qualified Codes: D50.9 - Iron deficiency anemia, unspecified (11) Vitamin D deficiency Status: Chronic Assessment & Plan: Repeat Vit D level shows normalization post replacement therapy. Plan/Intensity of Service 01/31/17- Patient is up in chair. Slow mobilization, recovery ongoing. Continue therapy- plan to Swing bed when stable for DC. Anemia is ongoing, but stable. PO iron replacement. Continue to monitor labs daily at this time. Some peripheral edema, but no hypoxia or SOA. Will hold off on diuretics until she is mobilizing better. On multiple antiepileptics/psychiatric meds- continue home medications. Monitor mentation. Todd reported DC'd yesterday. DC ceftriaxone- s/p 6 days of therapy for uncomplicated UTI. DVT Prophylaxis: Lovenox Code Status Do Not Resuscitate Hospital Course Summary Disclaimer The hospital course summary below is not to be considered part of the above Progress Note. Hospital Course Summary 01/26/17 Admit to inpatient status. Consult Dr. Moscoso for surgical fixation of left hip fx. Singer's traction applied. Consult Dr. Cuevas for fragility fracture. Medically cleared for surgery. Bacturia - no dysuria but c/o vaginal itching. Todd placed on admission. Rocephin started; also ordered dose of Monistat. A-fib - EKG shows rate-controlled rhythm. Dig level nontoxic; also on a BB. She is not on an anticoagulant other than ASA, which is being held d/t impending sx. Sz d/o - on multiple antiepileptics. No recent hx of sz. Chronic pain - takes [place] 7.5 QID + PRN at [facility]. Will order [place] 10 postop + IV Dilaudid for acute pain. Constipation - continue bowel regimen. Chronic anemia - type and screen ordered d/t acute fracture. Continue ferrous sulfate. Hgb 13.9 on admission. Code status - DNR. Her sister Nidia is her DPOA. 01/27 OP DAY Left intertrochanteric hip fracture intramedullary nailing - Dr Ohara. Tired this afternoon. Tolerated Sx well. Was able to sit on side of bed with therapy today. Pain bothersome, but medication did help. Notes slight nausea. Breathing well-not having SOA, cough or congestion. No chest pressure or pain. Continue Rocephin for urinary coverage - check C/S. Will continue with NS at 75 cc/hr PT/OT consulted to help increase functional status. Continue with pain control. Encourage IS and deep breathing activities. Recheck BMP in am to monitor for LEONOR due to Sx. Repeat CBC in am to monitor for post op anemia. 01/28 POD #2 Doing fair. Pain and stiffness-hurts with movements. Pain medication helping some. Mild nausea, appetite decreased. Feels need to have bowel movement, but not producing much stool. Breathing short, but not having cough. No chest pressure or pain. Continue Rocephin for urinary coverage. Recheck H/H this afternoon due to decreasing hemoglobin-likely need transfusion. Will decrease IVF to 50 cc/hr-oral drive still decreased. PT/OT consulted to help increase functional status. Continue todd due to decreased functional status - possible D/C tomorrow. Continue with pain control. Discussed with nursing about pt needing to have stool-may need Dulcolax if not having adequate bowel output. Encourage IS and deep breathing activities. Recheck BMP in am to monitor for LEONOR due to Sx. Repeat CBC in am to monitor for post op anemia. 01/29 POD #3 Doing okay. Pain decreasing. Feels pain medications are helping and tolerated them. Tolerating therapy but progress slow and difficult - 'It's hard work!' Notes some nausea. No ab pain-bowels moving. Breathing well without SOA, cough or congestion. No chest pressure or pain. Hemoglobin improved to 9.0 post transfusion yesterday afternoon - continue to monitor. Continue Rocephin for urinary coverage. Will d/c IVF. Bladder retraining. Continue PT/OT help increase functional status. Continue with pain control. Currently tolerating pain medications, and they are effective. Continue with bowel stimulation. Encourage IS and deep breathing activities. Recheck BMP in am to monitor for LEONOR due discontinuation of IVF. Repeat Hemogram in am to monitor post op anemia. 01/30 POD#4 Doing about the same. Still with discomfort to left hip. Pain increases with activities. Therapy challenging due to the pain. Bowel moving. No ab pain or nausea. Appetite about the same. Breathing well. No chest pain. No f/c. Hemoglobin improved to 8.3 this am - recheck this afternoon. Continue Rocephin for urinary coverage. D/C Todd cath - monitor for retention. Encourage therapy to help maximize functional status. Continue with pain control. Currently tolerating pain medications, and they are effective. Continue with bowel stimulation. Encourage IS and deep breathing activities. Repeat Hemogram in am to monitor post op anemia. 01/31/17- Patient is up in chair. Slow mobilization, recovery ongoing. Continue therapy- plan to Swing bed when stable for DC. Anemia is ongoing, but stable. PO iron replacement. Continue to monitor labs daily at this time. Some peripheral edema, but no hypoxia or SOA. Will hold off on diuretics until she is mobilizing better. On multiple antiepileptics/psychiatric meds- continue home medications. Monitor mentation. Rochelle reported DC'd yesterday. DC ceftriaxone- s/p 6 days of therapy for uncomplicated UTI. DOROTHEA MAYNARD MD 01/31/17 1531: Assessment & Plan Problems: (1) Closed left hip fracture Status: Acute Qualifiers: Encounter type: initial encounter Qualified Codes: S72.002A - Fracture of unspecified part of neck of left femur, initial encounter for closed fracture (2) Blood loss anemia Status: Acute Assessment & Plan: 01/28: Transfusion 1 unit pRBC. (3) UTI (urinary tract infection) Status: Acute Assessment & Plan: E coli - sensitive to Rocephin. s/p 6 days Rocephin, stop 01/31 (4) Atrial fibrillation Status: Chronic (5) Epilepsy Status: Chronic (6) GERD (gastroesophageal reflux disease) Status: Chronic (7) Osteoporosis Status: Chronic (8) Polyosteoarthritis Status: Chronic (9) Major depressive disorder Status: Chronic Qualifiers: Major depression recurrence: recurrent Active/Remission status: remission status unspecified Qualified Codes: F33.9 - Major depressive disorder, recurrent, unspecified (10) Anemia Status: Chronic Qualifiers: Anemia type: iron deficiency Iron deficiency anemia type: unspecified iron deficiency Qualified Codes: D50.9 - Iron deficiency anemia, unspecified (11) Vitamin D deficiency Status: Chronic Assessment & Plan: Repeat Vit D level shows normalization post replacement therapy. Plan/Intensity of Service Have independently interviewed and examined pt. Chart reviewed. Case discussed with nursing and my FERRY CAPTAIN. Care plan developed with my supervision; agree with above. Doing about the same. 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 Tolerating pain medication. Eating well. No nausea. Bowels moving. Urinating well without Todd (pt is happy to have Todd out). Breathing stable. Using IS. No chest pressure or pain. Hemoglobin stable. Lungs: clear CV: irregularly irregular AB: soft obese nt/nd +BS EXT: +2 edema SKIN: wound covered and dry; no bleeding. MSE: awake alert appropriate Plan: Continue with supportive post op care. Rocephin stopped. Continue pain control. Monitor hemoglobin-with stability hope not to need another transfusion. Likely to rehab tomorrow. DVT Prophylaxis: SCD'S DALILA ARCE APRN Jan 31, 2017 12:06 DOROTHEA MAYNARD MD Jan 31, 2017 15:31
--- NOTE | 2017-01-31 18:36 | NUR ---
SHIFT SUMMARY PT ALERT AND ORIENTED X3 THIS SHIFT. PT UP TO CHAIR X2 MEALS THIS SHIFT USING SIT TO STAND LIFT AND ASSIST X2. PT SLEPT THE MAJORITY OF THE AFTERNOON. NORCO 10 1 TAB ADMINISTERED FOR PT REPORT OF PAIN. PT STATED THE PAIN MEDICATION HELPED HER PAIN AND WAS ABLE TO REST. VITAL SIGNS STABLE ON ROOM AIR. ADEQUATE URINARY OUTPUT OBTAINED. PT HAD MULTIPLE SOFT SMALL BOWEL MOVEMENTS THIS SHIFT. PT DENIES N/V. ICE PACK REMAINS TO LEFT HIP. PT CURRENTLY IN CHAIR FOR DINNER WITH CHAIR ALARM ON. WILL CONTINUE TO MONITOR CLOSELY.
[2017-01-31] MEDS: PHENYTOIN 100 MG PO SCH (20:49)
[2017-01-31] MEDS: ENOXAPARIN 40 MG/0.4 ML INJECTION SQ SCH (20:50)
[2017-01-31] MEDS: MAGNESIUM OXIDE 400 MG TABLET PO SCH (21:01)
[2017-01-31] MEDS: TRAZODONE 50 MG TABLET PO SCH (21:01)
--- NOTE | 2017-01-31 22:43 | NUR ---
STATUS PATIENT ALERT AND ORIENTED X3. PATIENT USING SIT TO STAND LIFT AND ASSISTX2 . PATIENT HAD ONE SMALL SOFT BOWEL DURING SHIFT. PATIENT C/O PAIN AT LEFT HIP. PRN NORCO WAS ADMINISTRATED.PRN MAALOX WAS ADMINISTRATED FOR C/O INDIGESTION . ON ROOM AIR. ICE PACK APPLIED TO LT HIP. CALL LIGHT WITHIN REACH .CONTINUE TO MONITOR.
[2017-02-01] MEDS: NOZIN NASAL SWAB NS SCH ×2 (01:00→08:41)
[2017-02-01 04:17] VITALS: BP 125/68; PULSE 80; RESP 20; TEMP 98.1; O2SAT 98
[2017-02-01 05:34] LABS: ANION GAP 6 MEQ/L (5-15); BUN/CREATININE RATIO 35 RATIO (6-26); CALCIUM 8.1 MG/DL (8.4-10.2); CHLORIDE 100 MEQ/L (98-107); CO2 - CARBON DIOXIDE 31 MEQ/L (22-30); CREATININE 0.4 MG/DL (0.7-1.2); GLOMERULAR FILTRATION RATE 159; GLUCOSE 100 MG/DL (65-110); POTASSIUM 5.1 MEQ/L (3.6-5); SODIUM 137 MEQ/L (134-144)
[2017-02-01 05:39] LABS: BASOPHILS % (AUTO) 0.6 % (0-2); EOSINOPHILS # (AUTO) 0.1 T/MM3 (0-0.5); EOSINOPHILS % (AUTO) 2.7 % (0-4); HCT - HEMATOCRIT 24.2 % (36-46); HGB - HEMOGLOBIN 8.1 GM/DL (12-16); IMMATURE GRANULOCYTE # (AUTO) 0.01 T/MM3 (0.00-0.03); IMMATURE GRANULOCYTE % (AUTO) 0.3 % (0.0-0.5); LYMPHOCYTES # (AUTO) 1.4 T/MM3 (1-4.8); LYMPHOCYTES % (AUTO) 41.7 % (23-45); MEAN CORPUSCULAR HGB 31.8 UUG (26-34); MEAN CORPUSCULAR HGB CONC(MCHC 33.5 GM/DL (31-37); MEAN CORPUSCULAR VOLUME 94.9 UM3 (80-100); MEAN PLATELET VOLUME 10.5 UM3 (9.4-12.4); MONOCYTES # (AUTO) 0.4 T/MM3 (0-0.8); MONOCYTES % (AUTO) 12.7 % (0-9.0); NEUTROPHILS #(AUTO)-ABSOLUTE 1.4 T/MM3 (1.8-7.7); RED BLOOD COUNT 2.55 M/MM3 (4.00-5.20); WBC - WHITE BLOOD COUNT 3.4 T/MM3 (4.5-11.0)
[2017-02-01] MEDS: OMEPRAZOLE 20 MG CAPSULE PO SCH (07:16)
--- NOTE | 2017-02-01 07:35 | NUR ---
Alert and orientated to person and place. Den-ze-Pbuhc lift utilized in moving pt. from bed to commode. Pt. feels comfortable with Jme-cj-Iihqs and is cooperative with Nursing staff. Three small dressings to left lower extremity dry and intact. Has not required pain medication Sleeps most of the night. No c/o.
[2017-02-01 08:00] VITALS: PULSE 80; RESP 18
[2017-02-01 08:21] VITALS: BP 127/69; PULSE 92; RESP 18; TEMP 98.5; O2SAT 97
[2017-02-01] MEDS: ASPIRIN *EC* 81mg TABLET PO SCH (08:40)
[2017-02-01] MEDS: DIVALPROEX 500 MG TABLET PO SCH (08:40)
[2017-02-01] MEDS: FOLBIC TABLET PO SCH (08:40)
[2017-02-01] MEDS: PHENOBARBITAL 32.4 MG TABLET PO SCH (08:40)
[2017-02-01] MEDS: SENNA + DOCUSATE TAB PO SCH (08:41)
[2017-02-01] MEDS: MULTIVIT + MINERALS (OPTI-GEN) PO SCH (08:41)
[2017-02-01] MEDS: METOPROLOL XL 25 MG TABLET PO SCH (08:41)
[2017-02-01] MEDS: DIGOXIN 250 MCG TABLET PO SCH (08:42)
[2017-02-01] MEDS: LEVETIRACETAM 500 MG TABLET PO SCH (08:42)
[2017-02-01] MEDS: PAROXETINE 40 MG TABLET PO SCH (08:42)
[2017-02-01] MEDS: CALCIUM 500 MG TABLET PO SCH (08:42)
[2017-02-01] MEDS: POLYETHYL.GLYCOL 3350 PACKET 17gm PO SCH (08:42)
[2017-02-01] MEDS: FERROUS GLUCONATE 324 MG TABLET PO SCH (08:42)
[2017-02-01] MEDS: GLUCOSAMINE PO SCH (08:54)
[2017-02-01] MEDS: CHONDROITIN PO SCH (08:54)
--- NOTE | 2017-02-01 09:47 | NUR ---
PT to PT call completed this morning to RONALD Rivas at [facility].
--- NOTE | 2017-02-01 09:48 | NUR ---
MARK FLORES SPOKE WITH CASSIA AT [facility]. THEY CAN ACCEPT PT FOR SWING BED. MARK REQUESTS DR TO DR AND PT TO PT CALLS. CASSIA WOULD LIKE PT TO ARRIVE BY 3PM.
--- NOTE | 2017-02-01 09:57 | NUR ---
MARK FLORES SPOKE WITH KAEL OWEN, VIA TELEPHONE. SHE IS MADE AWARE THAT DC IS PLANNED FOR TODAY. SHE WOULD LIKE PT TO DC TO [facility] FOR SWING BED. SHE IS GOING TO SEE ABOUT [facility]ING A [facility] FOR TRANSPORT AND WILL CALL MARK WITH ANSWER. IMPORTANT MESSAGE IS SIGNED OVER THE PHONE. Addendum: 02/01/17 at 0966 by KEILA ABAD RN Amended: Links added.
--- NOTE | 2017-02-01 09:58 | PNPDOC ---
Subjective Date DATE: 02/01/17 TIME: 09:47 Subjective F/U: Left hip fracture, UTI Sleepy this am. Was up in chair for breakfast-needed sit to stand lift help but was grimacing less with transfer. Eating well. No nausea or ab pain. Urinating well without todd. Breathing well. No chest pain. HR and BP stable. No f/c. Objective Vital Signs Vital signs Vital Signs Date Time Temp Pulse Resp B/P Pulse Ox O2 Delivery O2 Flow Rate FiO2 02/01/17 08:42 92 02/01/17 08:21 98.5 18 127/69 97 Room Air Height (Feet): 5 Height (Inches): 5.00 Weight (Kilograms): 86.200 General General Appearance: Alert, Obese, Well Nourished, Well Developed, Looks Stated Age Eyes (Brief) Eyes: FOUND: EOMI, PERRL, NOT FOUND: scleral icterus ENMT (Brief) ENMT: FOUND: hearing intact, mucosa moist Neck (Brief) Neck: FOUND: midline, NOT FOUND: nuchal rigidity, spasm Respiratory (Brief) Respiratory: FOUND: clear all garcia, equal bilaterally, NOT FOUND: rales, wheezes Cardiovascular (Brief) Cardiac: FOUND: pedal edema (+2 ), regular rate, regular rhythm Abdomen (Brief) Abdominal: FOUND: BS normo active x4, soft, NOT FOUND: distended, tender Extremities (Brief) Extremity : Side: Bilateral Extremity: leg Extremity Finding: FOUND: edema (+2 ), other (SCD in place ) Musculoskeletal (Brief) Musculoskeletal: NOT FOUND: deformity, spasm Integumentary (Brief) Integumentary: FOUND: dry, warm Neurologic (Brief) Neurological: FOUND: cranial 2-12 intact, motor (intact ) Psychiatric (Brief) Psychiatric: FOUND: alert, attentive, normal affect Laboratory Laboratory Laboratory Tests 02/01/17 03:56 Laboratory Tests 01/30/17 14:45 01/31/17 04:05 02/01/17 03:56 Sepsis Diagnostic Criteria Sepsis Confirmed/Suspected Infection: No Assessment & Plan Problems: (1) Closed left hip fracture Status: Acute Qualifiers: Encounter type: initial encounter Qualified Codes: S72.002A - Fracture of unspecified part of neck of left femur, initial encounter for closed fracture (2) Blood loss anemia Status: Acute Assessment & Plan: 01/28: Transfusion 1 unit pRBC. (3) UTI (urinary tract infection) Status: Acute Assessment & Plan: E coli - sensitive to Rocephin. s/p 6 days Rocephin, stop 01/31 (4) Atrial fibrillation Status: Chronic (5) Epilepsy Status: Chronic (6) GERD (gastroesophageal reflux disease) Status: Chronic (7) Osteoporosis Status: Chronic (8) Polyosteoarthritis Status: Chronic (9) Major depressive disorder Status: Chronic Qualifiers: Major depression recurrence: recurrent Active/Remission status: remission status unspecified Qualified Codes: F33.9 - Major depressive disorder, recurrent, unspecified (10) Anemia Status: Chronic Qualifiers: Anemia type: iron deficiency Iron deficiency anemia type: unspecified iron deficiency Qualified Codes: D50.9 - Iron deficiency anemia, unspecified (11) Vitamin D deficiency Status: Chronic Assessment & Plan: Repeat Vit D level shows normalization post replacement therapy. Plan/Intensity of Service Will D/C to [facility] for Swing care to continue restorative modalities. Continue with Lovenox 40mg daily - will need another 25 doses (last dose to be given on 02/26). PT/OT to help maximize functional status. Continue IS for pulmonary toilet. Continue pain control. Dr Cavazos will follow while on Swing bed - case discussed with her. Will F/U with Elie Singh for ortho on 02/18/17 at 10:30am. See orders for details. Case discussed with nursing, CM, and Dr Cavazos. Time spent with pt care and discharge greater than 35 minutes. DVT Prophylaxis: SCD'S, Lovenox Code Status Do Not Resuscitate Hospital Course Summary Disclaimer The hospital course summary below is not to be considered part of the above Progress Note. Hospital Course Summary 01/26/17 Admit to inpatient status. Consult Dr. Moscoso for surgical fixation of left hip fx. Singer's traction applied. Consult Dr. Cuevas for fragility fracture. Medically cleared for surgery. Bacturia - no dysuria but c/o vaginal itching. Todd placed on admission. Rocephin started; also ordered dose of Monistat. A-fib - EKG shows rate-controlled rhythm. Dig level nontoxic; also on a BB. She is not on an anticoagulant other than ASA, which is being held d/t impending sx. Sz d/o - on multiple antiepileptics. No recent hx of sz. Chronic pain - takes [place] 7.5 QID + PRN at [facility]. Will order [place] 10 postop + IV Dilaudid for acute pain. Constipation - continue bowel regimen. Chronic anemia - type and screen ordered d/t acute fracture. Continue ferrous sulfate. Hgb 13.9 on admission. Code status - DNR. Her sister Nidia is her DPOA. 01/27 OP DAY Left intertrochanteric hip fracture intramedullary nailing - Dr Ohara. Tired this afternoon. Tolerated Sx well. Was able to sit on side of bed with therapy today. Pain bothersome, but medication did help. Notes slight nausea. Breathing well-not having SOA, cough or congestion. No chest pressure or pain. Continue Rocephin for urinary coverage - check C/S. Will continue with NS at 75 cc/hr PT/OT consulted to help increase functional status. Continue with pain control. Encourage IS and deep breathing activities. Recheck BMP in am to monitor for LEONOR due to Sx. Repeat CBC in am to monitor for post op anemia. 01/28 POD #2 Doing fair. Pain and stiffness-hurts with movements. Pain medication helping some. Mild nausea, appetite decreased. Feels need to have bowel movement, but not producing much stool. Breathing short, but not having cough. No chest pressure or pain. Continue Rocephin for urinary coverage. Recheck H/H this afternoon due to decreasing hemoglobin-likely need transfusion. Will decrease IVF to 50 cc/hr-oral drive still decreased. PT/OT consulted to help increase functional status. Continue todd due to decreased functional status - possible D/C tomorrow. Continue with pain control. Discussed with nursing about pt needing to have stool-may need Dulcolax if not having adequate bowel output. Encourage IS and deep breathing activities. Recheck BMP in am to monitor for LEONOR due to Sx. Repeat CBC in am to monitor for post op anemia. 01/29 POD #3 Doing okay. Pain decreasing. Feels pain medications are helping and tolerated them. Tolerating therapy but progress slow and difficult - 'It's hard work!' Notes some nausea. No ab pain-bowels moving. Breathing well without SOA, cough or congestion. No chest pressure or pain. Hemoglobin improved to 9.0 post transfusion yesterday afternoon - continue to monitor. Continue Rocephin for urinary coverage. Will d/c IVF. Bladder retraining. Continue PT/OT help increase functional status. Continue with pain control. Currently tolerating pain medications, and they are effective. Continue with bowel stimulation. Encourage IS and deep breathing activities. Recheck BMP in am to monitor for LEONOR due discontinuation of IVF. Repeat Hemogram in am to monitor post op anemia. 01/30 POD#4 Doing about the same. Still with discomfort to left hip. Pain increases with activities. Therapy challenging due to the pain. Bowel moving. No ab pain or nausea. Appetite about the same. Breathing well. No chest pain. No f/c. Hemoglobin improved to 8.3 this am - recheck this afternoon. Continue Rocephin for urinary coverage. D/C Todd cath - monitor for retention. Encourage therapy to help maximize functional status. Continue with pain control. Currently tolerating pain medications, and they are effective. Continue with bowel stimulation. Encourage IS and deep breathing activities. Repeat Hemogram in am to monitor post op anemia. 01/31 POD#5 Patient is up in chair. Slow mobilization, recovery ongoing. Continue therapy- plan to Swing bed when stable for DC. Anemia is ongoing, but stable. PO iron replacement. Continue to monitor labs daily at this time. Some peripheral edema, but no hypoxia or SOA. Will hold off on diuretics until she is mobilizing better. On multiple antiepileptics/psychiatric meds- continue home medications. Monitor mentation. Todd reported DC'd yesterday. DC ceftriaxone- s/p 6 days of therapy for uncomplicated UTI. 02/01 POD#6 Sleepy this am. Was up in chair for breakfast-needed sit to stand lift help but was grimacing less with transfer. Eating well. No nausea or ab pain. Urinating well without todd. Breathing well. No chest pain. HR and BP stable. No f/c. Will D/C to [facility] for Swing care to continue restorative modalities. Continue with Lovenox 40mg daily - will need another 25 doses (last dose to be given on 02/26). PT/OT to help maximize functional status. Continue IS for pulmonary toilet. Continue pain control. Dr Cavazso will follow while on Swing bed - case discussed with her. Will F/U with Elie Singh for ortho on 02/18/17 at 10:30am. See orders for details. DOROTHEA MAYNARD MD Feb 01, 2017 09:51
[2017-02-01] MEDS ORDERED: ENOX40DI SQ (10:04)
[2017-02-01] MEDS ORDERED: ASCO500T9 PO (10:04)
[2017-02-01] MEDS ORDERED: HYDR-4078 PO (10:04)
[2017-02-01] MEDS ORDERED: CALC600T20 PO (10:04)
[2017-02-01] MEDS ORDERED: BISA10SU8 RECTALLY (10:04)
--- NOTE | 2017-02-01 10:09 | PDOCECFAO ---
Admission Orders Admission Orders Admit to: Swing Bed-Non [facility] Allergies: Coded Allergies: amoxicillin (Verified Allergy, Mild, RASH, 01/26/17) itching and rash ciprofloxacin (Verified Allergy, Mild, ITCHING, 01/26/17) sulfamethoxazole (Verified Allergy, Mild, RASH, 01/26/17) trimethoprim (Verified Allergy, Unknown, 01/26/17) Admitting Diagnosis Left Hip Fracture Admitting Physician Jaime Manzanares MD Attending Physician Dr Cavazos Code Status Do Not Resuscitate Anticipated LOS: 30 days or less Rehab Potential: Fair Rehab Prognosis: Fair Diet: Regular Wound/Incision Care: Keep wound covered and dry May use Facility Protocol /SO: Yes May Have Flu Vaccine: Yes Evaluations/Treat: PT, OT Residential Certification I certify that SNF services are required to be given on an Inpatient basis because of the patients need for longterm care on a continuing basis for the condition(s) for which he/she received inpatient hospital services prior to his/her transfer to the SNF. SNF inpatient care is necessary for the following reasons Med Admininistration, Postop Assessment Care, Teach Med Managment, Other ( Skilled PT/OT to maximize functional status. ) Cardiac or Respiratory Arrest In Event of Arrest: Do Not Start CPR Resident is Aware of Diagnosis: Yes Additional Orders: Dr Cavazos will follow while on Swing bed. F/U with Elie Singh for ortho eval on 02/18/17 at 10:30am F/U with Dr Cuevas on 04/06/27 at 08:45 for Bone Health evaluation Use IS 4-6 times a day for pulmonary toilet. Continue Lovenox 40mg for 25 more doses - last dose to be given on 02/26. WBAT. Up with assistance. JAIME MANZANARES MD Feb 01, 2017 10:09
--- NOTE | 2017-02-01 10:37 | NUR ---
CM PER VM FROM KAEL OWEN [facility] WILL TRANSPORT PT AT 1330.
--- NOTE | 2017-02-01 10:40 | NUR ---
CM TIME OUT COMPLETED WITH JOSÉ ANTONIO PHILLIP.
[2017-02-01 11:57] VITALS: BP 117/84; PULSE 89; RESP 16; TEMP 98.2; O2SAT 97
--- NOTE | 2017-02-01 12:09 | NUR ---
MARK CM IN TO VISIT WITH PT. SHE IS AWARE THAT DC TO [facility] IS PLANNED FOR TODAY. SHE IS MADE AWARE THAT [facility] WILL TRANSPORT HER.
--- NOTE | 2017-02-01 13:54 | NUR ---
DISCHARGE PT DISCHARGED TO [facility] FOR SWING BED CARE. REPORT GIVEN DOCUMENTED. PACKET SENT WITH TRANSPORTATION. BELONGINGS GIVEN TO FAMILY.
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
== END 2017-02-01 13:55 | disposition swing bed (61) | DRG 481 ==
LOC: SRG 12:30
PROVIDERS: ADMIT Hospitalist; ATTEND Hospitalist
PROC: 0QS736Z Reposition Left Upper Femur with Intramedullary Internal Fixation Device, Percutaneous Approach (ICD-10-PCS; principal; 2017-01-27 09:35)
PROC: 30233N1 Transfusion of Nonautologous Red Blood Cells into Peripheral Vein, Percutaneous Approach (ICD-10-PCS; 2017-01-28)
DX: S72.002A Fracture of unspecified part of neck of left femur, initial encounter for closed fracture (principal); N39.0 Urinary tract infection, site not specified; D62 Acute posthemorrhagic anemia; W01.0XXA Fall on same level from slipping, tripping and stumbling without subsequent striking against object, initial encounter; Y92.129 Unspecified place in nursing home as the place of occurrence of the external cause; Y99.8 Other external cause status; M81.0 Age-related osteoporosis without current pathological fracture; I48.91 Unspecified atrial fibrillation; D50.9 Iron deficiency anemia, unspecified; Z66 Do not resuscitate; E55.9 Vitamin D deficiency, unspecified; G40.909 Epilepsy, unspecified, not intractable, without status epilepticus; K21.9 Gastro-esophageal reflux disease without esophagitis; H35.30 Unspecified macular degeneration; M15.9 Polyosteoarthritis, unspecified; F32.9 Major depressive disorder, single episode, unspecified; Z79.82 Long term (current) use of aspirin; Z79.899 Other long term (current) drug therapy; B96.20 Unspecified Escherichia coli [E. coli] as the cause of diseases classified elsewhere
CPT/HCPCS: 36415; 80048; 80053; 80162; 81001; 82306; 84443; 85014; 85018; 85025; 85027; 86850; 86900; 86901; 86922; 87077; 87086; 87186; 93005